=== PATIENT | male | born 1955 | race Caucasian/White ===

== ENCOUNTER 2017-02-25 17:57 | Emergency (ER) | payer OTHER ==
[~2017-02-25] VITALS: Ht 170.2 cm; Wt 68.0 kg
--- NOTE | 2017-02-25 19:30 | Diagnostic Imaging Report ---
History:New onset of seizures Comparison studies:None Technique: Axial images were obtained from the skull base to the vertex. Coronal and sagittal images reconstructed from the axial data. Intravenous contrast: None Findings: Scalp/skull: No abnormalities. Extra-axial spaces: No masses. No fluid collections. Brain sulci: Mildly prominent at the cerebrum. Moderate prominent at the cerebellum Ventricles: Mild compensatory dilatation. No hydrocephalus. Parenchyma: Few hypodensities in the supratentorial white matter are small vessel ischemic changes. No masses, hemorrhage, acute or chronic cortical vascular insults. Sellar/suprasellar region: No abnormalities. Craniocervical junction: Patent foramen magnum. No Chiari one malformation. Incidental findings: Atherosclerotic calcifications in the carotid siphons . Impression: No acute abnormalities. Chronic findings: 1. Mild generalized cerebral volume loss. Moderate cerebral volume loss, could be seen in anticonvulsive medication chronic treatment. 2. Mild supratentorial white matter small vessel ischemic changes. Signed by: DR Bar Parry M.D. on 02/25/2017 7:27 PM
[2017-02-25 19:43] LABS: BASOPHILS % 0.1 % (0.0-1.0); HEMOGLOBIN 13.2 g/dL (14.0-18.0); LYMPHOCYTES # (AUTO) 0.4 (1.0-3.2); LYMPHOCYTES % 5.4 % (18.0-39.1); MEAN CORPUSCULAR HEMOGLOBIN 34.1 pg (28-32); MEAN CORPUSCULAR HGB CONC 35.7 g/dL (31-35); MEAN CORPUSCULAR VOLUME 95.6 fL (81-99); MONOCYTES # (AUTO) 0.6 (0.2-0.8); MONOCYTES % 7.7 % (4.4-11.3); NEUTROPHILS # (AUTO) 6.3 (2.1-6.9); NEUTROPHILS % 86.4 % (38.7-80.0); PLATELET COUNT 97 x10e3/uL (140-360); RED BLOOD COUNT 3.87 x10e6/uL (4.3-5.7); RED CELL DISTRIBUTION WIDTH 12.4 % (11.7-14.4)
[2017-02-25 19:59] LABS: ALANINE AMINOTRANSFERASE 62 IU/L (0-55); ALBUMIN 4.4 g/dL (3.5-5.0); ALBUMIN/GLOBULIN RATIO 1.6 (0.8-2.0); ALKALINE PHOSPHATASE 58 IU/L (40-150); ANION GAP 19.5 mmol/L (8-16); BLOOD UREA NITROGEN 20 mg/dL (7-26); BUN/CREATININE RATIO 21 (6-25); CARBON DIOXIDE 21 mmol/L (22-29); CHLORIDE 100 mmol/L (98-107); CREATININE, SERUM 0.95 mg/dL (0.72-1.25); EST GLOMERULAR FILTRATION RATE > 60 ML/MIN (60-); GLUCOSE 131 mg/dL (74-118); POTASSIUM 3.5 mmol/L (3.5-5.1); SODIUM 137 mmol/L (136-145)
[2017-02-25] MEDS ORDERED: CHLORDIAZEPOXIDE HCL 25 MG CAP PO ONE (20:00)
[2017-02-25 20:10] LABS: INR 0.94
[2017-02-25 20:11] LABS: PARTIAL THROMBOPLASTIN TIME 25.8 seconds (23.8-35.5)
[2017-02-25] MEDS ORDERED: ASPIRIN 81 MG CHEW TAB PO ONE (20:15)
[2017-02-25 20:28] LABS: CREATINE KINASE MB 17.1 ng/mL (0.00-5.00); TROPONIN I 0.036 ng/mL (0-0.300)
[2017-02-25] MEDS ORDERED: MULTIVITAMINS- 12 INJECTION 10 ML, FOLIC ACID MDV 5 MG, THIAMINE HCL INJ 100 MG in SODI... IV ONE (21:30)
[2017-02-25] MEDS ORDERED: SODIUM CHLORIDE 0.9% 1000ML 1,000 ML IV ONE (21:30)
[2017-02-26 02:05] LABS: TROPONIN I 0.032 ng/mL (0-0.300)
== END 2017-02-26 01:59 | disposition left against medical advice (07) ==
LOC: ER 17:57
DX: G40.409 Other generalized epilepsy and epileptic syndromes, not intractable, without status epilepticus (principal); S00.81XA Abrasion of other part of head, initial encounter; F10.239 Alcohol dependence with withdrawal, unspecified; I10 Essential (primary) hypertension
CPT/HCPCS: 36415; 70450; 80053; 80320; 82550; 82553; 84484; 85025; 85610; 85730; 99284; J3411; J7030

== ENCOUNTER 2017-09-18 18:11 | Emergency (ER) | payer OTHER ==
[~2017-09-18] VITALS: Ht 170.2 cm; Wt 68.0 kg
[2017-09-18] MEDS ORDERED: ASPIRIN 81 MG CHEW TAB PO ONE (18:15)
[2017-09-18 18:50] LABS: BASOPHILS # (AUTO) 0.1 (0.0-0.1); BASOPHILS % 0.6 % (0.0-1.0); EOSINOPHILS # (AUTO) 0.1 (0.0-0.4); EOSINOPHILS % 1.1 % (0.0-6.0); HEMATOCRIT 39.4 % (38.2-49.6); HEMOGLOBIN 13.3 g/dL (14.0-18.0); LYMPHOCYTES # (AUTO) 3.5 (1.0-3.2); LYMPHOCYTES % 41.1 % (18.0-39.1); MEAN CORPUSCULAR HEMOGLOBIN 33.9 pg (28-32); MEAN CORPUSCULAR HGB CONC 33.8 g/dL (31-35); MEAN CORPUSCULAR VOLUME 100.5 fL (81-99); MONOCYTES # (AUTO) 0.8 (0.2-0.8); MONOCYTES % 9.6 % (4.4-11.3); NEUTROPHILS # (AUTO) 4.1 (2.1-6.9); NEUTROPHILS % 47.1 % (38.7-80.0); PLATELET COUNT 318 x10e3/uL (140-360); RED BLOOD COUNT 3.92 x10e6/uL (4.3-5.7); RED CELL DISTRIBUTION WIDTH 13.7 % (11.7-14.4)
--- NOTE | 2017-09-18 18:56 | Diagnostic Imaging Report ---
History:Seizures, fall Comparison studies:CT head 02/25/2017 Technique: Axial images were obtained from the skull base to the vertex. Coronal and sagittal images reconstructed from the axial data. Intravenous contrast: None Findings: Scalp/skull: No abnormalities. Extra-axial spaces: No masses. No fluid collections. Brain sulci: Mildly prominent at the supratentorial compartment. Moderately prominent at the cerebellum. Ventricles: Mild compensatory dilatation. No hydrocephalus. Parenchyma: Few hypodensities in the supratentorial white matter are small vessel ischemic changes. No masses, hemorrhage, acute or chronic cortical vascular insults. Sellar/suprasellar region: No abnormalities. Craniocervical junction: Patent foramen magnum. No Chiari one malformation. Incidental findings: Atherosclerotic calcifications in the carotid siphons . Impression: No acute abnormalities. Stable examination. Chronic findings: 1. Mild generalized cerebral volume loss. Moderate cerebellar volume loss, unchanged Mild supratentorial white matter small vessel ischemic changes. Signed by: DR Bar Parry M.D. on 09/18/2017 6:53 PM
--- NOTE | 2017-09-18 19:00 | Diagnostic Imaging Report ---
History: Fall Comparison studies: None Technique: Axial images were obtained through the cervical region.. Coronal and sagittal images reconstructed from the axial data.. Intravenous contrast: None Findings: Fractures: None. Soft tissues: No gross abnormalities. Atlantoaxial articulation: Degenerative changes without acute abnormality. Alignment: Straightening of the cervical spine lordosis. Minimal grade 1 anterolisthesis of C4 over C5.. No scoliosis. Cervicomedullary junction: No abnormalities. The foramen magnum is patent. Vertebrae: No infection or neoplasm. Degenerative changes: At C3-4, decreased intervertebral space, diffuse disc osteophyte complex and bilateral uncinate process hypertrophy results in no significant canal stenosis and mild bilateral foraminal narrowing. At C4-5, diffuse disc osteophyte complex, bilateral uncinate process hypertrophy and right facet hypertrophy results in mild canal stenosis and moderate right foraminal narrowing. At C5-6, decreased intervertebral space with endplate sclerotic changes. Diffuse disc osteophyte complex, bilateral uncinate process hypertrophy and facet hypertrophy results in moderate canal stenosis and mild bilateral foraminal narrowing. At C6-7, bilateral uncinate process hypertrophy and diffuse disc osteophyte complex results in mild canal stenosis and mild bilateral foraminal narrowing. IMPRESSION: 1. No acute cervical spine abnormalities. Degenerative changes as described above. 2. Cannot exclude ligament, spinal cord and or vascular abnormalities on the basis of this examination. Signed by: DR Bar Parry M.D. on 09/18/2017 6:57 PM
[2017-09-18 19:11] LABS: ALANINE AMINOTRANSFERASE 43 IU/L (0-55); ALBUMIN 4.5 g/dL (3.5-5.0); ALBUMIN/GLOBULIN RATIO 1.5 (0.8-2.0); ALKALINE PHOSPHATASE 53 IU/L (40-150); ANION GAP 30.9 mmol/L (8-16); BLOOD UREA NITROGEN 17 mg/dL (7-26); BUN/CREATININE RATIO 18 (6-25); CALCIUM 9.8 mg/dL (8.4-10.2); CARBON DIOXIDE 13 mmol/L (22-29); CHLORIDE 101 mmol/L (98-107); CREATINE KINASE 246 IU/L (30-200); CREATININE, SERUM 0.93 mg/dL (0.72-1.25); EST GLOMERULAR FILTRATION RATE > 60 ML/MIN (60-); GLUCOSE 135 mg/dL (74-118); POTASSIUM 3.9 mmol/L (3.5-5.1); SODIUM 141 mmol/L (136-145)
[2017-09-18] MEDS ORDERED: MULTIVITAMINS- 12 INJECTION 10 ML, FOLIC ACID MDV 5 MG, THIAMINE HCL INJ 100 MG in SODI... IV ONE ×2 (19:15→19:30)
[2017-09-18] MEDS ORDERED: CHLORDIAZEPOXIDE HCL 10 MG CAP PO ONE (19:30)
[2017-09-18] MEDS ORDERED: SODIUM CHLORIDE 0.9% 1000ML 1,000 ML IV ONE (19:30)
== END 2017-09-19 01:41 | disposition home or self-care (01) ==
LOC: ER 18:11
DX: G40.309 Generalized idiopathic epilepsy and epileptic syndromes, not intractable, without status epilepticus (principal); I10 Essential (primary) hypertension; F10.10 Alcohol abuse, uncomplicated
CPT/HCPCS: 36415; 70450; 72125; 80053; 80320; 82550; 82553; 83605; 84484; 85025; 93005; 99283; J3411; J7030

== ENCOUNTER 2017-11-11 17:47 | Emergency (ER) | payer OTHER ==
[~2017-11-11] VITALS: Ht 170.2 cm; Wt 68.0 kg
--- NOTE | 2017-11-11 18:56 | Diagnostic Imaging Report ---
Examination: CT head without contrast Clinical Indication: Seizure. Technique: Transaxial noncontrast images from the skull base through the vertex were obtained. Sagittal and coronal reformatted images were done. Dose modulation, iterative reconstruction, and/or weight based adjustment of the mA/kV was utilized to reduce the radiation dose to as low as reasonably achievable. Comparison: Head CT performed September 19, 2007. Findings: Scalp: No abnormalities. Bones: Intact. No fractures. No blastic or lytic lesions. Brain sulci: Mild volume loss for patient's age with moderate volume loss of the bilateral cerebellar hemispheres, unchanged. Ventricles: No hydrocephalus. Extra-axial space: No abnormalities. Parenchyma: There are scattered patchy areas of low-attenuation within subcortical and periventricular white matter, nonspecific, but could represent microvascular ischemic disease. No masses, hemorrhage, or acute or chronic cortical based vascular insults. Suprasellar region: No abnormalities. Craniocervical junction: The foramen magnum is patent. No Chiari one malformation. Incidental findings: Atherosclerotic calcification of the cavernous and supraclinoid internal carotid and V4 segments of the bilateral vertebral arteries. Impression: 1. No acute intracranial finding when compared to prior head CT performed September 18, 2017. 2. Unchanged mild chronic microvascular ischemic change and mild cerebral and moderate cerebellar volume loss. Signed by: Dr. Radha William M.D. on 11/11/2017 6:53 PM
[2017-11-11 19:26] LABS: BASOPHILS % 0.1 % (0.0-1.0); HEMATOCRIT 37.8 % (38.2-49.6); HEMOGLOBIN 13.4 g/dL (14.0-18.0); LYMPHOCYTES # (AUTO) 0.3 (1.0-3.2); LYMPHOCYTES % 4.3 % (18.0-39.1); MEAN CORPUSCULAR HEMOGLOBIN 33.7 pg (28-32); MEAN CORPUSCULAR HGB CONC 35.4 g/dL (31-35); MONOCYTES # (AUTO) 0.5 (0.2-0.8); MONOCYTES % 7.5 % (4.4-11.3); NEUTROPHILS # (AUTO) 6.1 (2.1-6.9); NEUTROPHILS % 87.2 % (38.7-80.0); PLATELET COUNT 144 x10e3/uL (140-360); RED BLOOD COUNT 3.98 x10e6/uL (4.3-5.7); RED CELL DISTRIBUTION WIDTH 13.3 % (11.7-14.4)
[2017-11-11 19:42] LABS: ALANINE AMINOTRANSFERASE 37 IU/L (0-55); ALBUMIN 4.4 g/dL (3.5-5.0); ALBUMIN/GLOBULIN RATIO 1.5 (0.8-2.0); ALKALINE PHOSPHATASE 54 IU/L (40-150); ANION GAP 23.6 mmol/L (8-16); BLOOD UREA NITROGEN 17 mg/dL (7-26); BUN/CREATININE RATIO 19 (6-25); CALCIUM 8.8 mg/dL (8.4-10.2); CARBON DIOXIDE 18 mmol/L (22-29); CHLORIDE 100 mmol/L (98-107); CREATINE KINASE 245 IU/L (30-200); EST GLOMERULAR FILTRATION RATE > 60 ML/MIN (60-); GLUCOSE 166 mg/dL (74-118); POTASSIUM 3.6 mmol/L (3.5-5.1); SODIUM 138 mmol/L (136-145)
[2017-11-11 20:35] LABS: EOSINOPHILS % (MANUAL) 1 % (0-7); LYMPHOCYTES % (MANUAL) 3 % (19-48); MONOCYTES % (MANUAL) 3 % (3.4-9.0); NEUTROPHILS % (MANUAL) 92 % (40-74); PLATELET ESTIMATE ADEQUATE; PLATELET MORPHOLOGY COMMENT NORMAL; RBC MORPHOLOGY COMMENT NORMAL
[2017-11-11 20:45] LABS: CLARITY,URINE SL CLOUDY (CLEAR); COLOR,URINE YELLOW (YELLOW); KETONES,URINE 1+ (NEGATIVE); LEUKOCYTE ESTERASE ,URINE NEGATIVE (NEGATIVE); NITRITE,URINE NEGATIVE (NEGATIVE); PROTEIN,URINE DIPSTICK 2+ (NEGATIVE)
[2017-11-11 20:46] LABS: AMPHETAMINES SCREEN,URINE NEGATIVE (NEGATIVE); BENZODIAZEPINES SCREEN,URINE NEGATIVE (NEGATIVE); BILIRUBIN,URINE NEGATIVE (NEGATIVE); PHENCYCLIDINE SCREEN,URINE NEGATIVE (NEGATIVE); URINE UROBILINOGEN 0.2 mg/dL (0.2 - 1)
[2017-11-11 21:02] LABS: EPITHELIAL CELLS,URINE FEW /LPF
== END 2017-11-11 21:30 | disposition home or self-care (01) ==
LOC: ER 17:47
DX: G40.309 Generalized idiopathic epilepsy and epileptic syndromes, not intractable, without status epilepticus (principal); R56.00 Simple febrile convulsions
CPT/HCPCS: 36415; 70450; 80053; 80307; 80320; 81001; 82550; 82553; 84484; 85025; 93005; 99284

== ENCOUNTER 2019-06-06 15:09 | Emergency (ER) | payer OTHER ==
[~2019-06-06] VITALS: Ht 170.2 cm; Wt 68.0 kg
--- OUTSIDE RECORDS SUMMARY | 2019-06-06 15:13 | XMS REPORT ---
[facility] Address Unknown Phone Unavailable Care Team Providers Care [employer] Supervisor Name Role Phone JANN LUNDBERG MD PP TATA PHIPPS M.D. Unavailable Unavailable TIARA LOCKHART M.D. Unavailable Unavailable SHAI LOMAS M.D. Unavailable Unavailable IRENE CRANDALL, GREGORY Unavailable Unavailable Rafael BRICEÑO Unavailable Unavailable Lex ROACH Unavailable Unavailable Enrique RUIZ Unavailable Unavailable Payers Payer Name Policy Type Policy Number Effective Date Expiration Date [employer] Kam [id number] 2013 00:00:00 [employer] Kam [id number] 2013 00:00:00 Problems Condition Name Condition Details Condition Category Status Onset Date Resolution Date Last Treatment Date Treating Clinician Comments Seizures Seizures Problem Active Pain of left lateral upper thigh Pain of left lateral upper thigh Problem Active Left knee pain Left knee pain Problem Active Pain in joint involving left lower leg Pain in joint involving left lower leg Problem Active Herniated nucleus pulposus, L5-S1 Herniated nucleus pulposus, L5-S1 Problem Active Allergies, Adverse Reactions, Alerts Allergy Name Allergy Type Status Severity Reaction(s) Onset Date Inactive Date Treating Clinician Comments niacin DA Active SV 2018-04-09 00:00:00 codeine DA Active U 2018-04-09 00:00:00 niacin DA Active SV 2018-01-16 00:00:00 codeine DA Active SV 2018-01-16 00:00:00 niacin DA Active SV 2017-07-01 00:00:00 codeine DA Active U 2017-07-01 00:00:00 Medications Ordered Medication Name Filled Medication Name Start Date Stop Date Current Medication? Ordering Clinician Indication Dosage Frequency Signature (SIG) Comments Components traMADol HCl - 50 MG Oral Tablet traMADol HCl - 50 MG Oral Tablet 2018-08-13 00:00:00 Yes CAIO JONES PA-C TAKE 1 TABLET EVERY 4 TO 6 HOURS NEEDED. Vital Signs Vital Name Observation Time Observation Value Comments BP Systolic 2018-11-07 12:26:00 152 mm[Hg] BP Diastolic 2018-11-07 12:26:00 86 mm[Hg] Height 2018-11-07 12:26:00 68 [in_us] Weight 2018-11-07 12:26:00 150 [lb_av] Temperature 2018-11-07 12:26:00 98.1 [degF] Heart Rate 2018-11-07 12:26:00 73 /min Procedures and Interventions Procedure Date / Time Performed Performing Clinician CT Brain w/wo contrast [id number] 2018-08-19 00:00:00 MR Femur w/wo contrast [id number] 2018-08-19 00:00:00 MR Tib Fib wo contrast [id number] 2018-08-19 00:00:00 [U] XRAY PELVIS MIN 3 VWS [id number] 2018-08-13 00:00:00 [U] XRAY FEMUR 2 VWS LEFT [id number] 2018-08-13 00:00:00 [U] XRAY TIBIA FIBULA 2 VWS LEFT [id number] 2018-08-13 00:00:00 Computed tomography of brain without radiopaque contrast 2017-11-11 00:00:00 KATHLEEN BRICEÑO C Computed tomography of brain without radiopaque contrast 2017-09-18 00:00:00 CARLEE ROACH S Computed tomography of cervical spine without contrast 2017-09-18 00:00:00 CARLEE ROACH S Computed tomography of brain without radiopaque contrast 2017-02-25 00:00:00 CHANELL RUIZ Plan of Care Planned Activity Planned Date Comments Encounters Start Date/Time End Date/Time Encounter Type Admission Type Attending [facility] Care Facility Care Department Encounter ID 2018-11-24 10:45:00 2018-11-24 10:45:00 Appointment; TATA PHIPPS M.D. SAMBASIVAN, AJAI, M.D. [facility] Orthopedics at [facility], [place], [facility] [id number] 2018-11-07 11:00:00 2018-11-07 11:00:00 Appointment; TIARA LOCKHART M.D. CONRAD, ERNEST, M.D. [facility] Orthopedics at [facility] [id number] 2018-09-15 15:30:00 2018-09-15 15:30:00 Appointment; SHAI LOMAS M.D. FERRENDELLI, JAMES, M.D. [facility] [id number] 2018-08-13 10:15:00 2018-08-13 10:15:00 Appointment; IRENE CRANDALL NP COCKERHAM, AMY, NP [facility] Orthopedics [facility] [id number] 2017-11-11 17:47:00 2017-11-11 21:30:00 Departed Emergency Room 1 KATHLEEN BRICEÑO [facility] [id number] 2017-09-18 18:11:00 2017-09-19 01:41:00 Departed Emergency Room 1 CARLEE ROACH [facility] [id number] 2017-02-25 17:57:00 2017-02-26 01:59:00 Departed Emergency Room ER CHANELL RUIZ [facility] [id number] Results Test Description Test Time Test Comments Text Results Atomic Results Result Comments GLUBED 2019-03-16 18:33:00 GLUBED (test code=GLUBED) 100 mg/dL 74-106 Performed by certified paint booth operator at [facility] [id number] 18:33:00* Test Item Value Reference Range Comments GLUBED (test code=GLUBED) 101 mg/dL 74-106 Performed by certified paint booth operator at [facility] CBC W/AUTO [id number] 07:55:00* Test Item Value Reference Range Comments WHITE BLOOD CELL (test code=WBC) 4.5 K/mm3 4.5-12.5 RED BLOOD CELL (test code=RBC) 3.26 mill/mm3 4.0-5.8 HEMOGLOBIN (test code=HGB) 11.0 gram/dL 13.0-17.5 HEMATOCRIT (test code=HCT) 31.1 % 42.0-52.0 MEAN CELL VOLUME (test code=MCV) 95.4 fL 80-98 MEAN CELL HGB (test code=MCH) 33.7 picogram 27.0-33.0 MEAN CELL HGB CONCETRATION (test code=MCHC) 35.4 gram/dL 33.0-36.0 RED CELL DISTRIBUTION WIDTH (test code=RDW) 13.5 % 11.6-16.2 RED CELL DISTRIBUTION WIDTH SD (test code=RDW-SD) 47.1 fL 37.0-51.0 PLATELET COUNT (test code=PLT) 84 K/mm3 150-450 MEAN PLATELET VOLUME (test code=MPV) 12.4 fL 6.7-11.0 NEUTROPHIL % (test code=NT%) 59.7 % 39.0-69.0 IMMATURE GRANULOCYTE % (test code=IG%) 0.4 % 0.0-5.0 LYMPHOCYTE % (test code=LY%) 28.0 % 25.0-55.0 MONOCYTE % (test code=MO%) 8.5 % 0.0-10.0 EOSINOPHIL % (test code=EO%) 2.7 % 0.0-5.0 BASOPHIL % (test code=BA%) 0.7 % 0.0-1.0 NUCLEATED RBC % (test code=NRBC%) 0.0 % 0-0 NEUTROPHIL # (test code=NT#) 2.66 K/mm3 1.8-7.7 IMMATURE GRANULOCYTE # (test code=IG#) 0.02 x10 3/uL 0-0.03 LYMPHOCYTE # (test code=LY#) 1.25 K/mm3 1.0-5.0 MONOCYTE # (test code=MO#) 0.38 K/mm3 0-0.8 EOSINOPHIL # (test code=EO#) 0.12 K/mm3 0.0-0.5 BASOPHIL # (test code=BA#) 0.03 K/mm3 0.0-0.2 NUCLEATED RBC # (test code=NRBC#) 0.00 K/mm3 0.0-0.1 MANUAL DIFF REQUIRED (test code=MDIFF) NO, ONLY SCAN NEEDED DIFFERENTIAL [id number] 07:55:00* Test Item Value Reference Range Comments STAIN ACCEPTABILITY (test code=STN ACCEPTABLE) STAIN ACCEPTABLE ANISOCYTOSIS (test code=ANISO) 2+ MACROCYTOSIS (test code=MACR) 2+ MORPHOLOGY COMMENT (test code=MOC) NORMAL PLATELET ESTIMATE (test code=PLTEST) DECREASED PLATELET MORPHOLOGY (test code=PLTMORPH) NORMAL COMPREHENSIVE METABOLIC [id number] 04:22:00* Test Item Value Reference Range Comments SODIUM (test code=NA) 138 mmol/L 136-145 POTASSIUM (test code=K) 3.4 mmol/L 3.5-5.1 CHLORIDE (test code=CL) 103.0 mmol/L 98-107 CARBON DIOXIDE (test code=CO2) 25.0 mmol/L 21-32 ANION GAP (test code=GAP) 13.4 10-20 GLUCOSE (test code=GLU) 97 mg/dL 74-106 BLOOD UREA NITROGEN (test code=BUN) 19 mg/dL 7-18 GLOMERULAR FILTRATION RATE (test code=GFR) > 60 mL/min >=60 Estimated GFR by using Modified MDRD formula.Chronic kidney disease is defined as either kidney damageor GFR <60 mL/min/1.73 m2 for >3 months. CREATININE (test code=CREAT) 0.80 mg/dL 0.7-1.3 BUN/CREATININE RATIO (test code=BUN/CREA) 23.8 10-20 TOTAL PROTEIN (test code=PROT) 6.3 gram/dL 6.4-8.2 ALBUMIN (test code=ALB) 3.6 g/dL 3.4-5.0 GLOBULIN (test code=GLOB) 2.7 gram/dL 2.7-4.2 ALBUMIN/GLOBULIN RATIO (test code=A/G) 1.3 0.75-1.50 CALCIUM (test code=CA) 8.2 mg/dL 8.5-10.1 BILIRUBIN TOTAL (test code=BILT) 1.30 mg/dL 0.0-1.0 SGOT/AST (test code=AST) 177 IUnit/L 15-37 SGPT/ALT (test code=ALT) 107 IUnit/L 12-78 ALKALINE PHOSPHATASE TOTAL (test code=ALKP) 57 IUnit/L 45-117 Note change in reference range due to change in reagent. [id number] 04:12:00* Test Item Value Reference Range Comments AMMONIA (test code=AMM) 51 umol/L 11-32 COMPREHENSIVE METABOLIC [id number] 04:12:00* Test Item Value Reference Range Comments SODIUM (test code=NA) 138 mmol/L 136-145 POTASSIUM (test code=K) 3.4 mmol/L 3.5-5.1 CHLORIDE (test code=CL) 103.0 mmol/L 98-107 CARBON DIOXIDE (test code=CO2) mmol/L 21-32 ANION GAP (test code=GAP) 10-20 GLUCOSE (test code=GLU) mg/dL 74-106 BLOOD UREA NITROGEN (test code=BUN) mg/dL 7-18 GLOMERULAR FILTRATION RATE (test code=GFR) mL/min >=60 CREATININE (test code=CREAT) mg/dL 0.7-1.3 BUN/CREATININE RATIO (test code=BUN/CREA) 10-20 TOTAL PROTEIN (test code=PROT) gram/dL 6.4-8.2 ALBUMIN (test code=ALB) g/dL 3.4-5.0 GLOBULIN (test code=GLOB) gram/dL 2.7-4.2 ALBUMIN/GLOBULIN RATIO (test code=A/G) 0.75-1.50 CALCIUM (test code=CA) mg/dL 8.5-10.1 BILIRUBIN TOTAL (test code=BILT) mg/dL 0.0-1.0 SGOT/AST (test code=AST) IUnit/L 15-37 SGPT/ALT (test code=ALT) IUnit/L 12-78 ALKALINE PHOSPHATASE TOTAL (test code=ALKP) IUnit/L 45-117 CBC W/AUTO [id number] 03:32:00* Test Item Value Reference Range Comments WHITE BLOOD CELL (test code=WBC) 4.5 K/mm3 4.5-12.5 RED BLOOD CELL (test code=RBC) 3.26 mill/mm3 4.0-5.8 HEMOGLOBIN (test code=HGB) 11.0 gram/dL 13.0-17.5 HEMATOCRIT (test code=HCT) 31.1 % 42.0-52.0 MEAN CELL VOLUME (test code=MCV) 95.4 fL 80-98 MEAN CELL HGB (test code=MCH) 33.7 picogram 27.0-33.0 MEAN CELL HGB CONCETRATION (test code=MCHC) 35.4 gram/dL 33.0-36.0 RED CELL DISTRIBUTION WIDTH (test code=RDW) 13.5 % 11.6-16.2 RED CELL DISTRIBUTION WIDTH SD (test code=RDW-SD) 47.1 fL 37.0-51.0 PLATELET COUNT (test code=PLT) 84 K/mm3 150-450 MEAN PLATELET VOLUME (test code=MPV) 12.4 fL 6.7-11.0 NEUTROPHIL % (test code=NT%) 59.7 % 39.0-69.0 IMMATURE GRANULOCYTE % (test code=IG%) 0.4 % 0.0-5.0 LYMPHOCYTE % (test code=LY%) 28.0 % 25.0-55.0 MONOCYTE % (test code=MO%) 8.5 % 0.0-10.0 EOSINOPHIL % (test code=EO%) 2.7 % 0.0-5.0 BASOPHIL % (test code=BA%) 0.7 % 0.0-1.0 NUCLEATED RBC % (test code=NRBC%) 0.0 % 0-0 NEUTROPHIL # (test code=NT#) 2.66 K/mm3 1.8-7.7 IMMATURE GRANULOCYTE # (test code=IG#) 0.02 x10 3/uL 0-0.03 LYMPHOCYTE # (test code=LY#) 1.25 K/mm3 1.0-5.0 MONOCYTE # (test code=MO#) 0.38 K/mm3 0-0.8 EOSINOPHIL # (test code=EO#) 0.12 K/mm3 0.0-0.5 BASOPHIL # (test code=BA#) 0.03 K/mm3 0.0-0.2 NUCLEATED RBC # (test code=NRBC#) 0.00 K/mm3 0.0-0.1 MANUAL DIFF REQUIRED (test code=MDIFF) NO, ONLY SCAN NEEDED DIFFERENTIAL [id number] 03:32:00* Test Item Value Reference Range Comments STAIN ACCEPTABILITY (test code=STN ACCEPTABLE) CABOT RINGS (test code=CAB) MORPHOLOGY COMMENT (test code=MOC) PLATELET ESTIMATE (test code=PLTEST) PLATELET MORPHOLOGY (test code=PLTMORPH) CBC W/AUTO [id number] 03:32:00* Test Item Value Reference Range Comments WHITE BLOOD CELL (test code=WBC) 4.5 K/mm3 4.5-12.5 RED BLOOD CELL (test code=RBC) 3.26 mill/mm3 4.0-5.8 HEMOGLOBIN (test code=HGB) 11.0 gram/dL 13.0-17.5 HEMATOCRIT (test code=HCT) 31.1 % 42.0-52.0 MEAN CELL VOLUME (test code=MCV) 95.4 fL 80-98 MEAN CELL HGB (test code=MCH) 33.7 picogram 27.0-33.0 MEAN CELL HGB CONCETRATION (test code=MCHC) 35.4 gram/dL 33.0-36.0 RED CELL DISTRIBUTION WIDTH (test code=RDW) 13.5 % 11.6-16.2 RED CELL DISTRIBUTION WIDTH SD (test code=RDW-SD) 47.1 fL 37.0-51.0 PLATELET COUNT (test code=PLT) 84 K/mm3 150-450 MEAN PLATELET VOLUME (test code=MPV) 12.4 fL 6.7-11.0 NEUTROPHIL % (test code=NT%) 59.7 % 39.0-69.0 IMMATURE GRANULOCYTE % (test code=IG%) 0.4 % 0.0-5.0 LYMPHOCYTE % (test code=LY%) 28.0 % 25.0-55.0 MONOCYTE % (test code=MO%) 8.5 % 0.0-10.0 EOSINOPHIL % (test code=EO%) 2.7 % 0.0-5.0 BASOPHIL % (test code=BA%) 0.7 % 0.0-1.0 NUCLEATED RBC % (test code=NRBC%) 0.0 % 0-0 NEUTROPHIL # (test code=NT#) 2.66 K/mm3 1.8-7.7 IMMATURE GRANULOCYTE # (test code=IG#) 0.02 x10 3/uL 0-0.03 LYMPHOCYTE # (test code=LY#) 1.25 K/mm3 1.0-5.0 MONOCYTE # (test code=MO#) 0.38 K/mm3 0-0.8 EOSINOPHIL # (test code=EO#) 0.12 K/mm3 0.0-0.5 BASOPHIL # (test code=BA#) 0.03 K/mm3 0.0-0.2 NUCLEATED RBC # (test code=NRBC#) 0.00 K/mm3 0.0-0.1 MANUAL DIFF REQUIRED (test code=MDIFF) NO, ONLY SCAN NEEDED DIFFERENTIAL [id number] 03:32:00* Test Item Value Reference Range Comments STAIN ACCEPTABILITY (test code=STN ACCEPTABLE) CABOT RINGS (test code=CAB) MORPHOLOGY COMMENT (test code=MOC) PLATELET ESTIMATE (test code=PLTEST) PLATELET MORPHOLOGY (test code=PLTMORPH) CBC W/AUTO [id number] 03:32:00* Test Item Value Reference Range Comments WHITE BLOOD CELL (test code=WBC) 4.5 K/mm3 4.5-12.5 RED BLOOD CELL (test code=RBC) 3.26 mill/mm3 4.0-5.8 HEMOGLOBIN (test code=HGB) 11.0 gram/dL 13.0-17.5 HEMATOCRIT (test code=HCT) 31.1 % 42.0-52.0 MEAN CELL VOLUME (test code=MCV) 95.4 fL 80-98 MEAN CELL HGB (test code=MCH) 33.7 picogram 27.0-33.0 MEAN CELL HGB CONCETRATION (test code=MCHC) 35.4 gram/dL 33.0-36.0 RED CELL DISTRIBUTION WIDTH (test code=RDW) 13.5 % 11.6-16.2 RED CELL DISTRIBUTION WIDTH SD (test code=RDW-SD) 47.1 fL 37.0-51.0 PLATELET COUNT (test code=PLT) 84 K/mm3 150-450 MEAN PLATELET VOLUME (test code=MPV) 12.4 fL 6.7-11.0 NEUTROPHIL % (test code=NT%) 59.7 % 39.0-69.0 IMMATURE GRANULOCYTE % (test code=IG%) 0.4 % 0.0-5.0 LYMPHOCYTE % (test code=LY%) 28.0 % 25.0-55.0 MONOCYTE % (test code=MO%) 8.5 % 0.0-10.0 EOSINOPHIL % (test code=EO%) 2.7 % 0.0-5.0 BASOPHIL % (test code=BA%) 0.7 % 0.0-1.0 NUCLEATED RBC % (test code=NRBC%) 0.0 % 0-0 NEUTROPHIL # (test code=NT#) 2.66 K/mm3 1.8-7.7 IMMATURE GRANULOCYTE # (test code=IG#) 0.02 x10 3/uL 0-0.03 LYMPHOCYTE # (test code=LY#) 1.25 K/mm3 1.0-5.0 MONOCYTE # (test code=MO#) 0.38 K/mm3 0-0.8 EOSINOPHIL # (test code=EO#) 0.12 K/mm3 0.0-0.5 BASOPHIL # (test code=BA#) 0.03 K/mm3 0.0-0.2 NUCLEATED RBC # (test code=NRBC#) 0.00 K/mm3 0.0-0.1 MANUAL DIFF REQUIRED (test code=MDIFF) NO, ONLY SCAN NEEDED DIFFERENTIAL [id number] 03:32:00* Test Item Value Reference Range Comments STAIN ACCEPTABILITY (test code=STN ACCEPTABLE) MORPHOLOGY COMMENT (test code=MOC) PLATELET ESTIMATE (test code=PLTEST) PLATELET MORPHOLOGY (test code=PLTMORPH) CBC W/AUTO [id number] 03:32:00* Test Item Value Reference Range Comments WHITE BLOOD CELL (test code=WBC) 4.5 K/mm3 4.5-12.5 RED BLOOD CELL (test code=RBC) 3.26 mill/mm3 4.0-5.8 HEMOGLOBIN (test code=HGB) 11.0 gram/dL 13.0-17.5 HEMATOCRIT (test code=HCT) 31.1 % 42.0-52.0 MEAN CELL VOLUME (test code=MCV) 95.4 fL 80-98 MEAN CELL HGB (test code=MCH) 33.7 picogram 27.0-33.0 MEAN CELL HGB CONCETRATION (test code=MCHC) 35.4 gram/dL 33.0-36.0 RED CELL DISTRIBUTION WIDTH (test code=RDW) 13.5 % 11.6-16.2 RED CELL DISTRIBUTION WIDTH SD (test code=RDW-SD) 47.1 fL 37.0-51.0 PLATELET COUNT (test code=PLT) 84 K/mm3 150-450 MEAN PLATELET VOLUME (test code=MPV) 12.4 fL 6.7-11.0 NEUTROPHIL % (test code=NT%) 59.7 % 39.0-69.0 IMMATURE GRANULOCYTE % (test code=IG%) 0.4 % 0.0-5.0 LYMPHOCYTE % (test code=LY%) 28.0 % 25.0-55.0 MONOCYTE % (test code=MO%) 8.5 % 0.0-10.0 EOSINOPHIL % (test code=EO%) 2.7 % 0.0-5.0 BASOPHIL % (test code=BA%) 0.7 % 0.0-1.0 NUCLEATED RBC % (test code=NRBC%) 0.0 % 0-0 NEUTROPHIL # (test code=NT#) 2.66 K/mm3 1.8-7.7 IMMATURE GRANULOCYTE # (test code=IG#) 0.02 x10 3/uL 0-0.03 LYMPHOCYTE # (test code=LY#) 1.25 K/mm3 1.0-5.0 MONOCYTE # (test code=MO#) 0.38 K/mm3 0-0.8 EOSINOPHIL # (test code=EO#) 0.12 K/mm3 0.0-0.5 BASOPHIL # (test code=BA#) 0.03 K/mm3 0.0-0.2 NUCLEATED RBC # (test code=NRBC#) 0.00 K/mm3 0.0-0.1 MANUAL DIFF REQUIRED (test code=MDIFF) NO, ONLY SCAN NEEDED DIFFERENTIAL [id number] 03:32:00* Test Item Value Reference Range Comments STAIN ACCEPTABILITY (test code=STN ACCEPTABLE) CABOT RINGS (test code=CAB) MORPHOLOGY COMMENT (test code=MOC) PLATELET ESTIMATE (test code=PLTEST) PLATELET MORPHOLOGY (test code=PLTMORPH) CBC W/AUTO [id number] 03:31:00* Test Item Value Reference Range Comments WHITE BLOOD CELL (test code=WBC) 4.5 K/mm3 4.5-12.5 RED BLOOD CELL (test code=RBC) 3.26 mill/mm3 4.0-5.8 HEMOGLOBIN (test code=HGB) 11.0 gram/dL 13.0-17.5 HEMATOCRIT (test code=HCT) 31.1 % 42.0-52.0 MEAN CELL VOLUME (test code=MCV) 95.4 fL 80-98 MEAN CELL HGB (test code=MCH) 33.7 picogram 27.0-33.0 MEAN CELL HGB CONCETRATION (test code=MCHC) 35.4 gram/dL 33.0-36.0 RED CELL DISTRIBUTION WIDTH (test code=RDW) 13.5 % 11.6-16.2 RED CELL DISTRIBUTION WIDTH SD (test code=RDW-SD) 47.1 fL 37.0-51.0 PLATELET COUNT (test code=PLT) 84 K/mm3 150-450 MEAN PLATELET VOLUME (test code=MPV) 12.4 fL 6.7-11.0 NEUTROPHIL % (test code=NT%) 59.7 % 39.0-69.0 IMMATURE GRANULOCYTE % (test code=IG%) 0.4 % 0.0-5.0 LYMPHOCYTE % (test code=LY%) 28.0 % 25.0-55.0 MONOCYTE % (test code=MO%) 8.5 % 0.0-10.0 EOSINOPHIL % (test code=EO%) 2.7 % 0.0-5.0 BASOPHIL % (test code=BA%) 0.7 % 0.0-1.0 NUCLEATED RBC % (test code=NRBC%) 0.0 % 0-0 NEUTROPHIL # (test code=NT#) 2.66 K/mm3 1.8-7.7 IMMATURE GRANULOCYTE # (test code=IG#) 0.02 x10 3/uL 0-0.03 LYMPHOCYTE # (test code=LY#) 1.25 K/mm3 1.0-5.0 MONOCYTE # (test code=MO#) 0.38 K/mm3 0-0.8 EOSINOPHIL # (test code=EO#) 0.12 K/mm3 0.0-0.5 BASOPHIL # (test code=BA#) 0.03 K/mm3 0.0-0.2 NUCLEATED RBC # (test code=NRBC#) 0.00 K/mm3 0.0-0.1 [id number] 16:39:00* Test Item Value Reference Range Comments GLUBED (test code=GLUBED) 115 mg/dL 74-106 Performed by certified paint booth operator at [facility] [id number] 13:28:00* Test Item Value Reference Range Comments GLUBED (test code=GLUBED) 115 mg/dL 74-106 Performed by certified paint booth operator at [facility] [id number] 06:36:00* Test Item Value Reference Range Comments GLUBED (test code=GLUBED) 79 mg/dL 74-106 Performed by certified paint booth operator at [facility] COMPREHENSIVE METABOLIC [id number] 03:30:00* Test Item Value Reference Range Comments SODIUM (test code=NA) 138 mmol/L 136-145 POTASSIUM (test code=K) 4.0 mmol/L 3.5-5.1 CHLORIDE (test code=CL) 102.0 mmol/L 98-107 CARBON DIOXIDE (test code=CO2) 25.0 mmol/L 21-32 ANION GAP (test code=GAP) 15.0 10-20 GLUCOSE (test code=GLU) 89 mg/dL 74-106 BLOOD UREA NITROGEN (test code=BUN) 27 mg/dL 7-18 RESULT VERIFIED BY REPEAT ANALYSIS GLOMERULAR FILTRATION RATE (test code=GFR) > 60 mL/min >=60 Estimated GFR by using Modified MDRD formula.Chronic kidney disease is defined as either kidney damageor GFR <60 mL/min/1.73 m2 for >3 months. CREATININE (test code=CREAT) 0.70 mg/dL 0.7-1.3 BUN/CREATININE RATIO (test code=BUN/CREA) 38.6 10-20 TOTAL PROTEIN (test code=PROT) 6.4 gram/dL 6.4-8.2 ALBUMIN (test code=ALB) 3.6 g/dL 3.4-5.0 GLOBULIN (test code=GLOB) 2.8 gram/dL 2.7-4.2 ALBUMIN/GLOBULIN RATIO (test code=A/G) 1.3 0.75-1.50 CALCIUM (test code=CA) 8.3 mg/dL 8.5-10.1 BILIRUBIN TOTAL (test code=BILT) 2.00 mg/dL 0.0-1.0 SGOT/AST (test code=AST) 206 IUnit/L 15-37 SGPT/ALT (test code=ALT) 98 IUnit/L 12-78 ALKALINE PHOSPHATASE TOTAL (test code=ALKP) 53 IUnit/L 45-117 Note change in reference range due to change in reagent. CBC W/AUTO [id number] 03:26:00* Test Item Value Reference Range Comments WHITE BLOOD CELL (test code=WBC) 4.7 K/mm3 4.5-12.5 RED BLOOD CELL (test code=RBC) 3.39 mill/mm3 4.0-5.8 HEMOGLOBIN (test code=HGB) 11.2 gram/dL 13.0-17.5 HEMATOCRIT (test code=HCT) 32.4 % 42.0-52.0 MEAN CELL VOLUME (test code=MCV) 95.6 fL 80-98 MEAN CELL HGB (test code=MCH) 33.0 picogram 27.0-33.0 MEAN CELL HGB CONCETRATION (test code=MCHC) 34.6 gram/dL 33.0-36.0 RED CELL DISTRIBUTION WIDTH (test code=RDW) 13.9 % 11.6-16.2 RED CELL DISTRIBUTION WIDTH SD (test code=RDW-SD) 48.9 fL 37.0-51.0 PLATELET COUNT (test code=PLT) 77 K/mm3 150-450 MEAN PLATELET VOLUME (test code=MPV) 12.3 fL 6.7-11.0 NEUTROPHIL % (test code=NT%) 61.3 % 39.0-69.0 IMMATURE GRANULOCYTE % (test code=IG%) 0.6 % 0.0-5.0 LYMPHOCYTE % (test code=LY%) 25.9 % 25.0-55.0 MONOCYTE % (test code=MO%) 10.7 % 0.0-10.0 EOSINOPHIL % (test code=EO%) 1.3 % 0.0-5.0 BASOPHIL % (test code=BA%) 0.2 % 0.0-1.0 NUCLEATED RBC % (test code=NRBC%) 0.0 % 0-0 NEUTROPHIL # (test code=NT#) 2.86 K/mm3 1.8-7.7 IMMATURE GRANULOCYTE # (test code=IG#) 0.03 x10 3/uL 0-0.03 LYMPHOCYTE # (test code=LY#) 1.21 K/mm3 1.0-5.0 MONOCYTE # (test code=MO#) 0.50 K/mm3 0-0.8 EOSINOPHIL # (test code=EO#) 0.06 K/mm3 0.0-0.5 BASOPHIL # (test code=BA#) 0.01 K/mm3 0.0-0.2 NUCLEATED RBC # (test code=NRBC#) 0.00 K/mm3 0.0-0.1 MANUAL DIFF REQUIRED (test code=MDIFF) NO, ONLY SCAN NEEDED DIFFERENTIAL [id number] 03:26:00* Test Item Value Reference Range Comments STAIN ACCEPTABILITY (test code=STN ACCEPTABLE) STAIN ACCEPTABLE POIKILOCYTOSIS (test code=POIK) 1+ ANISOCYTOSIS (test code=ANISO) 2+ MACROCYTOSIS (test code=MACR) 2+ TARGET CELLS (test code=TGT) 1+ PLATELET ESTIMATE (test code=PLTEST) DECREASED PLATELET MORPHOLOGY (test code=PLTMORPH) NORMAL COMPREHENSIVE METABOLIC [id number] 03:13:00* Test Item Value Reference Range Comments SODIUM (test code=NA) 138 mmol/L 136-145 POTASSIUM (test code=K) 4.0 mmol/L 3.5-5.1 CHLORIDE (test code=CL) 102.0 mmol/L 98-107 CARBON DIOXIDE (test code=CO2) mmol/L 21-32 ANION GAP (test code=GAP) 10-20 GLUCOSE (test code=GLU) mg/dL 74-106 BLOOD UREA NITROGEN (test code=BUN) mg/dL 7-18 GLOMERULAR FILTRATION RATE (test code=GFR) mL/min >=60 CREATININE (test code=CREAT) mg/dL 0.7-1.3 BUN/CREATININE RATIO (test code=BUN/CREA) 10-20 TOTAL PROTEIN (test code=PROT) gram/dL 6.4-8.2 ALBUMIN (test code=ALB) g/dL 3.4-5.0 GLOBULIN (test code=GLOB) gram/dL 2.7-4.2 ALBUMIN/GLOBULIN RATIO (test code=A/G) 0.75-1.50 CALCIUM (test code=CA) mg/dL 8.5-10.1 BILIRUBIN TOTAL (test code=BILT) mg/dL 0.0-1.0 SGOT/AST (test code=AST) IUnit/L 15-37 SGPT/ALT (test code=ALT) IUnit/L 12-78 ALKALINE PHOSPHATASE TOTAL (test code=ALKP) IUnit/L 45-117 [id number] 03:13:00* Test Item Value Reference Range Comments AMMONIA (test code=AMM) 42 umol/L 11-32 CBC W/AUTO [id number] 02:54:00* Test Item Value Reference Range Comments WHITE BLOOD CELL (test code=WBC) 4.7 K/mm3 4.5-12.5 RED BLOOD CELL (test code=RBC) 3.39 mill/mm3 4.0-5.8 HEMOGLOBIN (test code=HGB) 11.2 gram/dL 13.0-17.5 HEMATOCRIT (test code=HCT) 32.4 % 42.0-52.0 MEAN CELL VOLUME (test code=MCV) 95.6 fL 80-98 MEAN CELL HGB (test code=MCH) 33.0 picogram 27.0-33.0 MEAN CELL HGB CONCETRATION (test code=MCHC) 34.6 gram/dL 33.0-36.0 RED CELL DISTRIBUTION WIDTH (test code=RDW) 13.9 % 11.6-16.2 RED CELL DISTRIBUTION WIDTH SD (test code=RDW-SD) 48.9 fL 37.0-51.0 PLATELET COUNT (test code=PLT) 77 K/mm3 150-450 MEAN PLATELET VOLUME (test code=MPV) 12.3 fL 6.7-11.0 NEUTROPHIL % (test code=NT%) 61.3 % 39.0-69.0 IMMATURE GRANULOCYTE % (test code=IG%) 0.6 % 0.0-5.0 LYMPHOCYTE % (test code=LY%) 25.9 % 25.0-55.0 MONOCYTE % (test code=MO%) 10.7 % 0.0-10.0 EOSINOPHIL % (test code=EO%) 1.3 % 0.0-5.0 BASOPHIL % (test code=BA%) 0.2 % 0.0-1.0 NUCLEATED RBC % (test code=NRBC%) 0.0 % 0-0 NEUTROPHIL # (test code=NT#) 2.86 K/mm3 1.8-7.7 IMMATURE GRANULOCYTE # (test code=IG#) 0.03 x10 3/uL 0-0.03 LYMPHOCYTE # (test code=LY#) 1.21 K/mm3 1.0-5.0 MONOCYTE # (test code=MO#) 0.50 K/mm3 0-0.8 EOSINOPHIL # (test code=EO#) 0.06 K/mm3 0.0-0.5 BASOPHIL # (test code=BA#) 0.01 K/mm3 0.0-0.2 NUCLEATED RBC # (test code=NRBC#) 0.00 K/mm3 0.0-0.1 MANUAL DIFF REQUIRED (test code=MDIFF) NO, ONLY SCAN NEEDED DIFFERENTIAL [id number] 02:54:00* Test Item Value Reference Range Comments STAIN ACCEPTABILITY (test code=STN ACCEPTABLE) CABOT RINGS (test code=CAB) MORPHOLOGY COMMENT (test code=MOC) PLATELET ESTIMATE (test code=PLTEST) PLATELET MORPHOLOGY (test code=PLTMORPH) CBC W/AUTO [id number] 02:54:00* Test Item Value Reference Range Comments WHITE BLOOD CELL (test code=WBC) 4.7 K/mm3 4.5-12.5 RED BLOOD CELL (test code=RBC) 3.39 mill/mm3 4.0-5.8 HEMOGLOBIN (test code=HGB) 11.2 gram/dL 13.0-17.5 HEMATOCRIT (test code=HCT) 32.4 % 42.0-52.0 MEAN CELL VOLUME (test code=MCV) 95.6 fL 80-98 MEAN CELL HGB (test code=MCH) 33.0 picogram 27.0-33.0 MEAN CELL HGB CONCETRATION (test code=MCHC) 34.6 gram/dL 33.0-36.0 RED CELL DISTRIBUTION WIDTH (test code=RDW) 13.9 % 11.6-16.2 RED CELL DISTRIBUTION WIDTH SD (test code=RDW-SD) 48.9 fL 37.0-51.0 PLATELET COUNT (test code=PLT) 77 K/mm3 150-450 MEAN PLATELET VOLUME (test code=MPV) 12.3 fL 6.7-11.0 NEUTROPHIL % (test code=NT%) 61.3 % 39.0-69.0 IMMATURE GRANULOCYTE % (test code=IG%) 0.6 % 0.0-5.0 LYMPHOCYTE % (test code=LY%) 25.9 % 25.0-55.0 MONOCYTE % (test code=MO%) 10.7 % 0.0-10.0 EOSINOPHIL % (test code=EO%) 1.3 % 0.0-5.0 BASOPHIL % (test code=BA%) 0.2 % 0.0-1.0 NUCLEATED RBC % (test code=NRBC%) 0.0 % 0-0 NEUTROPHIL # (test code=NT#) 2.86 K/mm3 1.8-7.7 IMMATURE GRANULOCYTE # (test code=IG#) 0.03 x10 3/uL 0-0.03 LYMPHOCYTE # (test code=LY#) 1.21 K/mm3 1.0-5.0 MONOCYTE # (test code=MO#) 0.50 K/mm3 0-0.8 EOSINOPHIL # (test code=EO#) 0.06 K/mm3 0.0-0.5 BASOPHIL # (test code=BA#) 0.01 K/mm3 0.0-0.2 NUCLEATED RBC # (test code=NRBC#) 0.00 K/mm3 0.0-0.1 MANUAL DIFF REQUIRED (test code=MDIFF) NO, ONLY SCAN NEEDED DIFFERENTIAL [id number] 02:54:00* Test Item Value Reference Range Comments STAIN ACCEPTABILITY (test code=STN ACCEPTABLE) CABOT RINGS (test code=CAB) MORPHOLOGY COMMENT (test code=MOC) PLATELET ESTIMATE (test code=PLTEST) PLATELET MORPHOLOGY (test code=PLTMORPH) CBC W/AUTO [id number] 02:54:00* Test Item Value Reference Range Comments WHITE BLOOD CELL (test code=WBC) 4.7 K/mm3 4.5-12.5 RED BLOOD CELL (test code=RBC) 3.39 mill/mm3 4.0-5.8 HEMOGLOBIN (test code=HGB) 11.2 gram/dL 13.0-17.5 HEMATOCRIT (test code=HCT) 32.4 % 42.0-52.0 MEAN CELL VOLUME (test code=MCV) 95.6 fL 80-98 MEAN CELL HGB (test code=MCH) 33.0 picogram 27.0-33.0 MEAN CELL HGB CONCETRATION (test code=MCHC) 34.6 gram/dL 33.0-36.0 RED CELL DISTRIBUTION WIDTH (test code=RDW) 13.9 % 11.6-16.2 RED CELL DISTRIBUTION WIDTH SD (test code=RDW-SD) 48.9 fL 37.0-51.0 PLATELET COUNT (test code=PLT) 77 K/mm3 150-450 MEAN PLATELET VOLUME (test code=MPV) 12.3 fL 6.7-11.0 NEUTROPHIL % (test code=NT%) 61.3 % 39.0-69.0 IMMATURE GRANULOCYTE % (test code=IG%) 0.6 % 0.0-5.0 LYMPHOCYTE % (test code=LY%) 25.9 % 25.0-55.0 MONOCYTE % (test code=MO%) 10.7 % 0.0-10.0 EOSINOPHIL % (test code=EO%) 1.3 % 0.0-5.0 BASOPHIL % (test code=BA%) 0.2 % 0.0-1.0 NUCLEATED RBC % (test code=NRBC%) 0.0 % 0-0 NEUTROPHIL # (test code=NT#) 2.86 K/mm3 1.8-7.7 IMMATURE GRANULOCYTE # (test code=IG#) 0.03 x10 3/uL 0-0.03 LYMPHOCYTE # (test code=LY#) 1.21 K/mm3 1.0-5.0 MONOCYTE # (test code=MO#) 0.50 K/mm3 0-0.8 EOSINOPHIL # (test code=EO#) 0.06 K/mm3 0.0-0.5 BASOPHIL # (test code=BA#) 0.01 K/mm3 0.0-0.2 NUCLEATED RBC # (test code=NRBC#) 0.00 K/mm3 0.0-0.1 MANUAL DIFF REQUIRED (test code=MDIFF) NO, ONLY SCAN NEEDED DIFFERENTIAL [id number] 02:54:00* Test Item Value Reference Range Comments STAIN ACCEPTABILITY (test code=STN ACCEPTABLE) MORPHOLOGY COMMENT (test code=MOC) PLATELET ESTIMATE (test code=PLTEST) PLATELET MORPHOLOGY (test code=PLTMORPH) CBC W/AUTO [id number] 02:54:00* Test Item Value Reference Range Comments WHITE BLOOD CELL (test code=WBC) 4.7 K/mm3 4.5-12.5 RED BLOOD CELL (test code=RBC) 3.39 mill/mm3 4.0-5.8 HEMOGLOBIN (test code=HGB) 11.2 gram/dL 13.0-17.5 HEMATOCRIT (test code=HCT) 32.4 % 42.0-52.0 MEAN CELL VOLUME (test code=MCV) 95.6 fL 80-98 MEAN CELL HGB (test code=MCH) 33.0 picogram 27.0-33.0 MEAN CELL HGB CONCETRATION (test code=MCHC) 34.6 gram/dL 33.0-36.0 RED CELL DISTRIBUTION WIDTH (test code=RDW) 13.9 % 11.6-16.2 RED CELL DISTRIBUTION WIDTH SD (test code=RDW-SD) 48.9 fL 37.0-51.0 PLATELET COUNT (test code=PLT) 77 K/mm3 150-450 MEAN PLATELET VOLUME (test code=MPV) 12.3 fL 6.7-11.0 NEUTROPHIL % (test code=NT%) 61.3 % 39.0-69.0 IMMATURE GRANULOCYTE % (test code=IG%) 0.6 % 0.0-5.0 LYMPHOCYTE % (test code=LY%) 25.9 % 25.0-55.0 MONOCYTE % (test code=MO%) 10.7 % 0.0-10.0 EOSINOPHIL % (test code=EO%) 1.3 % 0.0-5.0 BASOPHIL % (test code=BA%) 0.2 % 0.0-1.0 NUCLEATED RBC % (test code=NRBC%) 0.0 % 0-0 NEUTROPHIL # (test code=NT#) 2.86 K/mm3 1.8-7.7 IMMATURE GRANULOCYTE # (test code=IG#) 0.03 x10 3/uL 0-0.03 LYMPHOCYTE # (test code=LY#) 1.21 K/mm3 1.0-5.0 MONOCYTE # (test code=MO#) 0.50 K/mm3 0-0.8 EOSINOPHIL # (test code=EO#) 0.06 K/mm3 0.0-0.5 BASOPHIL # (test code=BA#) 0.01 K/mm3 0.0-0.2 NUCLEATED RBC # (test code=NRBC#) 0.00 K/mm3 0.0-0.1 MANUAL DIFF REQUIRED (test code=MDIFF) NO, ONLY SCAN NEEDED DIFFERENTIAL [id number] 02:54:00* Test Item Value Reference Range Comments STAIN ACCEPTABILITY (test code=STN ACCEPTABLE) CABOT RINGS (test code=CAB) MORPHOLOGY COMMENT (test code=MOC) PLATELET ESTIMATE (test code=PLTEST) PLATELET MORPHOLOGY (test code=PLTMORPH) [id number] 21:15:00* Test Item Value Reference Range Comments GLUBED (test code=GLUBED) 105 mg/dL 74-106 Performed by certified paint booth operator at [facility] - CT HEAD/BRAIN W/O [id number] 20:21:00 Name: JORDANLOLA JOSEPH KENTRELL [facility] : 1955 Age/S: 64 / M [address] [facility] Unit #: [id number] Loc: [place] [address] Phys: Francisco Jensen II, MD Acct: [id number] Dis Date: Status: ADM IN PHONE #: [phone] Exam Date: 03/14/20192015 FAX #: [phone] Reason: s/p seizure, AMS EXAMS: CPT CODE: [id number] CT HEAD/BRAIN W/O CONT 06294 HISTORY: s/p seizure, AMS TECHNIQUE: Noncontrast 2.[address] of the head. Examination acquired within 24 hours of arrival. Automated exposure control for dose reduction. COMPARISON: Noncontrast CT brain June 27, 2018 FINDINGS: No lacerations or contusions of the scalp or facial soft tissues. Calvarium and skull base are intact. No acute hemorrhage. No intracranial mass, mass effect, or midline shift. No effacement of the sulci or castaneda-white matter interface. There is diffuse cortical atrophy with ventriculomegaly that is unchanged from the previous examination. Visualized paranasal sinuses are clear other than a small mucous retention cyst in the right maxillary sinus. Mastoid air cells and middle ear cavities are clear. Prior lens extractio n bilaterally. IMPRESSION: No acute i ntracranial process. Diffuse cortical atrophy is unchanged from the prio r exam. Location: RR at 2020 Reported and signed by: Jordan Mathew MD CC: Jann Lundberg; Francisco Jensen II, MD Technologist:Rach Sanchez,RT(R),CT CTDI: DLP: Trnscb Date/Time: 03/14/2019 (2020) t.MGR.[email or web address] Orig Print D/T: S: 03/14/2019 (2024) PAGE 1 Signed Report [id number] 19:16:00* Test Item Value Reference Range Comments PHOSPHORUS (test code=PHOS) 1.8 mg/dL 2.5-4.9 [id number] 19:16:00* Test Item Value Reference Range Comments MAGNESIUM (test code=MAG) 1.3 mg/dL 1.8-2.4 VITAMIN [id number] 19:16:00* Test Item Value Reference Range Comments VITAMIN B12 (test code=VITB12) 1192 pg/mL 193-986 [id number] 18:46:00* Test Item Value Reference Range Comments PHOSPHORUS (test code=PHOS) mg/dL 2.5-4.9 [id number] 18:46:00* Test Item Value Reference Range Comments MAGNESIUM (test code=MAG) 1.3 mg/dL 1.8-2.4 VITAMIN [id number] 18:46:00* Test Item Value Reference Range Comments VITAMIN B12 (test code=VITB12) pg/mL 193-986 [id number] 14:21:00* Test Item Value Reference Range Comments PHOSPHORUS (test code=PHOS) 1.4 mg/dL 2.5-4.9 [id number] 14:21:00* Test Item Value Reference Range Comments AMYLASE (test code=IRENE) 35 Unit/L 25-115 [id number] 14:21:00* Test Item Value Reference Range Comments MAGNESIUM (test code=MAG) 1.1 mg/dL 1.8-2.4 VITAMIN [id number] 14:21:00* Test Item Value Reference Range Comments VITAMIN B12 (test code=VITB12) 1209 pg/mL 193-986 FOLIC [id number] 14:21:00* Test Item Value Reference Range Comments FOLIC ACID (test code=FOL) 7.8 ng/mL 3.10-17.50 PROTHROMBIN [id number] 13:43:00* Test Item Value Reference Range Comments PROTHROMBIN TIME PATIENT (test code=PTP) 10.3 seconds 9.0-14.0 INTERNATIONAL NORMAL RATIO (test code=INR) 0.9 0.8-1.2 The therapeutic range for oral anticoagulant therapy formost indications is an international normalized ratio (INR)of between 2.0 and 3.0. The recommended therapeutic INRrange for various clinical situations is listed below: Clinical Situation INR range Pulmonary e mbolism treatment (2.0-3.0)Venous thrombosis treatmentVenous thrombosis prophylaxis (high risk surgery)Prevention of systemic embolism from: Acute myocardial infarction Valvular heart disease Atrial fibrillation Mechanical prosthetic heart valves (2.5-3.5) IS PATIENT ON ANTICOAGULANTS? NTHROMBOPLASTIN TIME [id number] 13:43:00* Test Item Value Reference Range Comments THROMBOPLASTIN TIME PARTIAL (test code=PTT) 28.3 seconds 25.0-36.5 IS PATIENT ON ANTICOAGULANTS? NCBC W/O [id number] 12:35:00* Test Item Value Reference Range Comments WHITE BLOOD CELL (test code=WBC) 6.8 K/mm3 4.5-12.5 RED BLOOD CELL (test code=RBC) 3.53 mill/mm3 4.0-5.8 HEMOGLOBIN (test code=HGB) 11.8 gram/dL 13.0-17.5 HEMATOCRIT (test code=HCT) 33.5 % 42.0-52.0 MEAN CELL VOLUME (test code=MCV) 94.9 fL 80-98 MEAN CELL HGB (test code=MCH) 33.4 picogram 27.0-33.0 MEAN CELL HGB CONCETRATION (test code=MCHC) 35.2 gram/dL 33.0-36.0 RED CELL DISTRIBUTION WIDTH (test code=RDW) 13.9 % 11.6-16.2 PLATELET COUNT (test code=PLT) 88 K/mm3 150-450 MEAN PLATELET VOLUME (test code=MPV) 12.0 fL 6.7-11.0 DRUGS OF ABUSE SCREEN [id number] 12:34:00* Test Item Value Reference Range Comments UA PH DIPSTICK (test code=LAMONT) 6.0 5.0-8.0 URN COCAINE (test code=COCAURN) NEGATIVE <300 ng/mL URN CANNABINOIDS (test code=CANNABURN) NEGATIVE <50 ng/mL URN AMPHETAMINE (test code=AMPHETURN) NEGATIVE <1000 ng/mL URN BARBITURATE (test code=BARBITURN) NEGATIVE <200 ng/mL URN BENZODIAZEPINE (test code=BENZOURN) NEGATIVE <200 ng/mL URN OPIATES (test code=OPIATURN) NEGATIVE <300 ng/mL URN PHENCYCLIDINE (PCP) (test code=PHENCURN) NEGATIVE <25 ng/mL URN METHADONE (test code=METHAURN) NEGATIVE <300 ng/mL [id number] 12:34:00* Test Item Value Reference Range Comments ALCOHOL (test code=ALC) < 3 mg/dL 0.0-3.0 INTERPRETIVE DATA NOTE: POSITIVE SCREENING RESULTS SHOULD BE CONSIDERED PRESUMPTIVE.WHEN COLLECTED FOR MEDICAL PURPOSES ONLY. SPECIMEN WILL NOTBE COLLECTED BY CHAIN OF CUSTODY.IF A CONFIRMATION OF POSITIVE RESULTS IS DESIRED, ACONFIRMATION TEST MUST BE REQUESTED BY THE PHYSICIAN AT ANADDITIONAL CHARGE TO THE PATIENT. [id number] 12:30:00* Test Item Value Reference Range Comments AMMONIA (test code=AMM) 68 umol/L 11-32 URINALYSIS [id number] 12:19:00* Test Item Value Reference Range Comments UA COLOR (test code=COLU) Light-Mobile YELLOW UA APPEARANCE (test code=APPU) Cloudy CLEAR UA GLUCOSE DIPSTICK (test code=DGLUU) NEGATIVE mg/dL NEGATIVE UA BILIRUBIN DIPSTICK (test code=BILU) 0.5 (1+) mg/dL NEGATIVE UA KETONE DIPSTICK (test code=KETU) 40 (2+) mg/dL NEGATIVE UA SPECIFIC GRAVITY (test code=SGU) 1.028 1.001-1.035 UA BLOOD DIPSTICK (test code=NESTOR) 0.1 mg/dL (1+) mg/dL NEGATIVE UA PH DIPSTICK (test code=LAMONT) 6.0 5.0-8.0 UA PROTEIN DIPSTICK (test code=PROU) 100 (2+) mg/dL NEGATIVE UA UROBILINIOGEN DIPSTICK (test code=URO) 4.0 (2+) mg/dL NEGATIVE UA NITRITE DIPSTICK (test code=TE) NEGATIVE NEGATIVE UA LEUKOCYTE ESTERASE W REFLEX (test code=LEUUR) NEGATIVE Nilson/uL NEGATIVE UA WBC (test code=WBCU) 0-5 per HPF 0-5 UA RBC (test code=RBCU) 0-2 #/HPF 0-5 UA EPITHELIAL CELLS (test code=EPIU) FEW per HPF FEW UA BACTERIA (test code=BACU) FEW #/HPF NONE UA HYALINE CAST (test code=HYALU) 3-5 #/LPF 0-5 UA MUCUS (test code=MUCU) FEW #/LPF FEW Urine Source? Clean CatchDRUGS OF ABUSE SCREEN [id number] 12:19:00* Test Item Value Reference Range Comments UA PH DIPSTICK (test code=LAMONT) 6.0 5.0-8.0 URN COCAINE (test code=COCAURN) <300 ng/mL URN CANNABINOIDS (test code=CANNABURN) <50 ng/mL URN AMPHETAMINE (test code=AMPHETURN) <1000 ng/mL URN BARBITURATE (test code=BARBITURN) <200 ng/mL URN BENZODIAZEPINE (test code=BENZOURN) <200 ng/mL URN OPIATES (test code=OPIATURN) <300 ng/mL URN PHENCYCLIDINE (PCP) (test code=PHENCURN) <25 ng/mL URN METHADONE (test code=METHAURN) <300 ng/mL BASIC METABOLIC [id number] 11:51:00* Test Item Value Reference Range Comments SODIUM (test code=NA) 136 mmol/L 136-145 POTASSIUM (test code=K) 4.0 mmol/L 3.5-5.1 CHLORIDE (test code=CL) 95.0 mmol/L 98-107 CARBON DIOXIDE (test code=CO2) 25.0 mmol/L 21-32 ANION GAP (test code=GAP) 20.0 10-20 GLUCOSE (test code=GLU) 151 mg/dL 74-106 BLOOD UREA NITROGEN (test code=BUN) 37 mg/dL 7-18 GLOMERULAR FILTRATION RATE (test code=GFR) 56 mL/min >=60 Estimated GFR by using Modified MDRD formula.Chronic kidney disease is defined as either kidney damageor GFR <60 mL/min/1.73 m2 for >3 months. CREATININE (test code=CREAT) 1.30 mg/dL 0.7-1.3 BUN/CREATININE RATIO (test code=BUN/CREA) 28.5 10-20 CALCIUM (test code=CA) 8.9 mg/dL 8.5-10.1 HEPATIC FUNCTION [id number] 11:51:00* Test Item Value Reference Range Comments TOTAL PROTEIN (test code=PROT) 7.3 gram/dL 6.4-8.2 ALBUMIN (test code=ALB) 4.5 g/dL 3.4-5.0 GLOBULIN (test code=GLOB) 2.8 gram/dL 2.7-4.2 ALBUMIN/GLOBULIN RATIO (test code=A/G) 1.6 0.75-1.50 BILIRUBIN TOTAL (test code=BILT) 2.70 mg/dL 0.0-1.0 BILIRUBIN DIRECT (test code=BILD) 0.79 mg/dL 0.0-0.20 SGOT/AST (test code=AST) 257 IUnit/L 15-37 SGPT/ALT (test code=ALT) 117 IUnit/L 12-78 ALKALINE PHOSPHATASE TOTAL (test code=ALKP) 66 IUnit/L 45-117 Note change in reference range due to change in reagent. [id number] 11:51:00* Test Item Value Reference Range Comments LIPASE (test code=LIP) 312 U/L 73.0-393.0 BASIC METABOLIC [id number] 11:46:00* Test Item Value Reference Range Comments SODIUM (test code=NA) 136 mmol/L 136-145 POTASSIUM (test code=K) 4.0 mmol/L 3.5-5.1 CHLORIDE (test code=CL) 95.0 mmol/L 98-107 CARBON DIOXIDE (test code=CO2) mmol/L 21-32 ANION GAP (test code=GAP) 10-20 GLUCOSE (test code=GLU) mg/dL 74-106 BLOOD UREA NITROGEN (test code=BUN) mg/dL 7-18 GLOMERULAR FILTRATION RATE (test code=GFR) mL/min >=60 CREATININE (test code=CREAT) mg/dL 0.7-1.3 BUN/CREATININE RATIO (test code=BUN/CREA) 10-20 CALCIUM (test code=CA) mg/dL 8.5-10.1 HEPATIC FUNCTION [id number] 11:46:00* Test Item Value Reference Range Comments TOTAL PROTEIN (test code=PROT) gram/dL 6.4-8.2 ALBUMIN (test code=ALB) g/dL 3.4-5.0 GLOBULIN (test code=GLOB) gram/dL 2.7-4.2 ALBUMIN/GLOBULIN RATIO (test code=A/G) 0.75-1.50 BILIRUBIN TOTAL (test code=BILT) mg/dL 0.0-1.0 BILIRUBIN DIRECT (test code=BILD) mg/dL 0.0-0.20 SGOT/AST (test code=AST) IUnit/L 15-37 SGPT/ALT (test code=ALT) IUnit/L 12-78 ALKALINE PHOSPHATASE TOTAL (test code=ALKP) IUnit/L 45-117 [id number] 11:46:00* Test Item Value Reference Range Comments LIPASE (test code=LIP) U/L 73.0-393.0 [U] XRAY FEMUR 2 VWS LEFT [id number] 11:18:00Images acquired, not reported on this accession number.[U] XRAY TIBIA FIBULA 2 VWS LEFT [id number] 11:18:00Images acquired, not reported on this accession number.[U] XRAY PELVIS MIN 3 VWS [id number] 10:52:00Images acquired, not reported on this accession number.URINALYSIS [id number] 12:55:00* Test Item Value Reference Range Comments UA COLOR (test code=COLU) YELLOW YELLOW UA APPEARANCE (test code=APPU) CLEAR CLEAR UA GLUCOSE DIPSTICK (test code=DGLUU) NEGATIVE mg/dL NEGATIVE UA BILIRUBIN DIPSTICK (test code=BILU) NEGATIVE mg/dL NEGATIVE UA KETONE DIPSTICK (test code=KETU) TRACE mg/dL NEGATIVE UA SPECIFIC GRAVITY (test code=SGU) 1.022 1.001-1.035 UA BLOOD DIPSTICK (test code=NESTOR) Negative mg/dL NEGATIVE UA PH DIPSTICK (test code=LAMONT) 7.0 5.0-8.0 UA PROTEIN DIPSTICK (test code=PROU) NEGATIVE mg/dL NEGATIVE UA UROBILINIOGEN DIPSTICK (test code=URO) 3.0 (1+) mg/dL NEGATIVE UA NITRITE DIPSTICK (test code=TE) NEGATIVE NEGATIVE UA LEUKOCYTE ESTERASE W REFLEX (test code=LEUUR) NEGATIVE Nilson/uL NEGATIVE UA WBC (test code=WBCU) 0-5 per HPF 0-5 UA RBC (test code=RBCU) 0-2 #/HPF 0-5 UA EPITHELIAL CELLS (test code=EPIU) None seen per HPF Few UA BACTERIA (test code=BACU) TRACE per HPF NONE Urine Source? VoidedURINALYSIS [id number] 12:42:00* Test Item Value Reference Range Comments UA COLOR (test code=COLU) YELLOW YELLOW UA APPEARANCE (test code=APPU) CLEAR CLEAR UA GLUCOSE DIPSTICK (test code=DGLUU) NEGATIVE mg/dL NEGATIVE UA BILIRUBIN DIPSTICK (test code=BILU) NEGATIVE mg/dL NEGATIVE UA KETONE DIPSTICK (test code=KETU) TRACE mg/dL NEGATIVE UA SPECIFIC GRAVITY (test code=SGU) 1.022 1.001-1.035 UA BLOOD DIPSTICK (test code=NESTOR) Negative mg/dL NEGATIVE UA PH DIPSTICK (test code=LAMONT) 7.0 5.0-8.0 UA PROTEIN DIPSTICK (test code=PROU) NEGATIVE mg/dL NEGATIVE UA UROBILINIOGEN DIPSTICK (test code=URO) 3.0 (1+) mg/dL NEGATIVE UA NITRITE DIPSTICK (test code=TE) NEGATIVE NEGATIVE UA LEUKOCYTE ESTERASE W REFLEX (test code=LEUUR) NEGATIVE Nilson/uL NEGATIVE UA WBC (test code=WBCU) 0-5 per HPF 0-5 UA RBC (test code=RBCU) 0-2 #/HPF 0-5 UA EPITHELIAL CELLS (test code=EPIU) per HPF Few UA BACTERIA (test code=BACU) per HPF NONE Urine Source? [id number] 15:09:00* Test Item Value Reference Range Comments MAGNESIUM (test code=MAG) 1.9 mg/dL 1.8-2.4 QNS.GIVEN TO PHLEB FOR REDRAW.BASIC METABOLIC [id number] 14:22:00* Test Item Value Reference Range Comments SODIUM (test code=NA) 136 mmol/L 136-145 POTASSIUM (test code=K) 4.4 mmol/L 3.5-5.1 CHLORIDE (test code=CL) 103.0 mmol/L 98-107 CARBON DIOXIDE (test code=CO2) 18.0 mmol/L 21-32 ANION GAP (test code=GAP) 19.4 10-20 GLUCOSE (test code=GLU) 83 mg/dL 74-106 BLOOD UREA NITROGEN (test code=BUN) 26 mg/dL 7-18 GLOMERULAR FILTRATION RATE (test code=GFR) > 60 mL/min >=60 Estimated GFR by using Modified MDRD formula.Chronic kidney disease is defined as either kidney damageor GFR <60 mL/min/1.73 m2 for >3 months. CREATININE (test code=CREAT) 0.70 mg/dL 0.7-1.3 BUN/CREATININE RATIO (test code=BUN/CREA) 37.1 10-20 CALCIUM (test code=CA) 8.7 mg/dL 8.5-10.1 CBC W/O [id number] 13:03:00* Test Item Value Reference Range Comments WHITE BLOOD CELL (test code=WBC) 12.5 K/mm3 4.5-12.5 RED BLOOD CELL (test code=RBC) 4.54 mill/mm3 4.0-5.8 HEMOGLOBIN (test code=HGB) 14.2 gram/dL 13.0-17.5 HEMATOCRIT (test code=HCT) 40.9 % 42.0-52.0 MEAN CELL VOLUME (test code=MCV) 90.1 fL 80-98 MEAN CELL HGB (test code=MCH) 31.3 picogram 27.0-33.0 MEAN CELL HGB CONCETRATION (test code=MCHC) 34.7 gram/dL 33.0-36.0 RED CELL DISTRIBUTION WIDTH (test code=RDW) 15.2 % 11.6-16.2 PLATELET COUNT (test code=PLT) 187 K/mm3 150-450 MEAN PLATELET VOLUME (test code=MPV) 11.3 fL 6.7-11.0 - CT HEAD/BRAIN W/O [id number] 11:42:00 Name: LOLA ORTEGA [facility] : 1955 Age/S: 63 / M [address] [facility] Unit #: [id number] Loc: [place] [address] Phys: Sadaf Loo MD Acct: [id number] Dis Date: Status: REG ER PHONE #: [phone] Exam Date: 06/27/2018 1114 FAX #: [phone] Reason: SEIZURE, FALL EXAMS: CPT CODE: [id number] CT HEAD/BRAIN W/O CONT 55226 TECHNIQUE: - CT C-SPINE W/O CONTRAST, - CT HEAD/BRAIN W/O CONT . This exam was performed using one or more of the following dose reduction techniques: Automated exposure control, adjustment of the mA and/ or kV according to patient size or use of iterative reconstruction technique. COMPARISON: CT brain 04/09/2018. CT cervical spine 04/09/2018 HISTORY: 63 years Male SEIZURE, FALL FINDINGS: CT BRAIN: Supra tentorial compartment and Posterior fossa: No hemorrhage. No intra-axial mass. No midline shift. Volume loss and small vessel white matter ischemic changes. More prominent cerebellar volume loss. Extra-axial structures: No hematoma, fluid c ollection, or mass. Ventricles and Basal Cisterns: No hydrocephalu s. Basal cisterns are normal. Visualized Orbits: No abnorma lities. Visualized Osseous structures: Within normal limits. Visualized paranasal Sinuses: Within normal limits. Oth er: None. FINDINGS: CT C_SPINE: Bones: No acute fractures. No suspicious focal lesion. PAGE 1 Signed Report (CONTINUED) Name: BABAKALPHONSOLex LOLA JOSEPH JR [facility] : 1955 Age/S: 63 / M [address] [facility] Unit #: [id number] c: [place] [address] Phys: Sadaf Loo MD Acct: [id number] Dis Date: Status: REG ER PHONE #: [phone] Exam Date: 06/27/2018 1114 FAX #: [phone] Reas on: SEIZURE, FALL EXAMS: CPT CODE: [id number] CT HEAD/BRAIN W/O CONT 34336 <Continued> Alignment: No subluxation. Soft tissues: No abnormalities. Prevertebral soft tissues, perivertebral soft tissues are normal. Intervertebral discs: Mild spondylosis multiple levels of the cervical spine. Other: None. IMPRESSION CT BRAIN AND C-SPINE: No acute hemorrhage. Volume loss and small vessel white matter ischemic change. More prominent cerebellar volume loss. No acute fractures cervical spine. Mild spondylosis multiple levels. at 1142 Reported and signed by: Shai Jacob M.D. CC: Sadaf Loo MD Technologist:Rach Sanchez,RT(R),CT CTDI: DLP: Trnscb Date/Time: 06/27/2018 (1142) t.EVAIRSTO Orig Print D/T: S: 06/27/2018 (1145) PAGE 2 Signed Report - CT C-SPINE W/O [id number] 11:42:00 [facility] 1955 [facility]S: 63 / [facility] [address] [facility]: [id number] Loc: [place] [id number] Phys: Sadaf Loo MD Acct: [id number] Di s Date: Status: REG ER PHONE #: [phone] Exam Date: 06/27/2018 1114 FAX #: [phone] Reason: SEIZURE, FALL EXAMS: CPT CODE: [id number] CT C-SPINE W/ O CONTRAST 15317 TECHNIQUE: - CT C- SPINE W/O CONTRAST, - CT HEAD/BRAIN W/O CONT . This exam was pe rformed using one or more of the following dose reduction techniques: Auto mated exposure control, adjustment of the mA and/ or kV according to patie nt size or use of iterative reconstruction technique. COMPAR MARGOT: CT brain 04/09/2018. CT cervical spine 04/09/2018 HISTORY: 63 years Male SEIZURE, FALL FINDINGS: CT BRAIN: Supra tentorial compartment and Posterior fossa: No hemorrhage. No intra-axial mass. No midline shift. Vol ume loss and small vessel white matter ischemic changes. More prominent ce rebellar volume loss. Extra-axial structures: No hematoma, fluid c ollection, or mass. Ventricles and Basal Cisterns: No hydrocephalu s. Basal cisterns are normal. Visualized Orbits: No abnorma lities. Visualized Osseous structures: Within normal limits. Visualized paranasal Sinuses: Within normal limits. Oth er: None. FINDINGS: CT C_SPINE: Bones: No acute fractures. No suspicious focal lesion. PAGE 1 Signed Report (CONTINUED) Name: LOLA THOMPSON JR [facility] : 1955 Age/S: 63 / M [address] [facility] Unit #: [id number] Lo c: [place] [address] Phys: Sadaf Loo MD Acct: [id number] Dis Date: Status: REG ER PHONE #: [phone] Exam Date: 06/27/2018 1114 FAX #: [phone] Reas on: SEIZURE, FALL EXAMS: CPT CODE: [id number] CT C-SPINE W/O CONTRAST 79827 <Continued> Alignment: No subluxation. Soft tissues: No abnormalities. Prevertebral soft tissues, perivertebral soft tissues are normal. Intervertebral discs: Mild spondylosis multiple levels of the cervical spine. Other: None. IMPRESSION CT BRAIN AND C-SPINE: No acute hemorrhage. Volume loss and small vessel white matter ischemic change. More prominent cerebellar volume loss. No acute fractures cervical spine. Mild spondylosis multiple levels. at 1142 Reported and signed by: Shai Jacob M.D. CC: Sadaf Loo MD Technologist:Rach Sanchez,RT(R),CT CTDI: DLP: Trnscb Date/Time: 06/27/2018 (9502) [email or web address] Orig Print D/T: S: 06/27/2018 (9609) PAGE 2 Signed Report BASIC METABOLIC [id number] 12:45:00* Test Item Value Reference Range Comments SODIUM (test code=NA) 141 mmol/L 136-145 POTASSIUM (test code=K) 4.2 mmol/L 3.5-5.1 CHLORIDE (test code=CL) 102.0 mmol/L 98-107 CARBON DIOXIDE (test code=CO2) 34.0 mmol/L 21-32 ANION GAP (test code=GAP) 9.2 10-20 GLUCOSE (test code=GLU) 95 mg/dL 74-106 BLOOD UREA NITROGEN (test code=BUN) 15 mg/dL 7-18 GLOMERULAR FILTRATION RATE (test code=GFR) > 60 mL/min >=60 Estimated GFR by using Modified MDRD formula.Chronic kidney disease is defined as either kidney damageor GFR <60 mL/min/1.73 m2 for >3 months. CREATININE (test code=CREAT) 0.80 mg/dL 0.7-1.3 BUN/CREATININE RATIO (test code=BUN/CREA) 18.0 10-20 CALCIUM (test code=CA) 10.0 mg/dL 8.5-10.1 [id number] 12:45:00* Test Item Value Reference Range Comments MAGNESIUM (test code=MAG) 2.2 mg/dL 1.8-2.4 BASIC METABOLIC [id number] 12:41:00* Test Item Value Reference Range Comments SODIUM (test code=NA) 141 mmol/L 136-145 POTASSIUM (test code=K) 4.2 mmol/L 3.5-5.1 CHLORIDE (test code=CL) 102.0 mmol/L 98-107 CARBON DIOXIDE (test code=CO2) mmol/L 21-32 ANION GAP (test code=GAP) 10-20 GLUCOSE (test code=GLU) mg/dL 74-106 BLOOD UREA NITROGEN (test code=BUN) mg/dL 7-18 GLOMERULAR FILTRATION RATE (test code=GFR) mL/min >=60 CREATININE (test code=CREAT) mg/dL 0.7-1.3 BUN/CREATININE RATIO (test code=BUN/CREA) 10-20 CALCIUM (test code=CA) mg/dL 8.5-10.1 [id number] 12:41:00* Test Item Value Reference Range Comments MAGNESIUM (test code=MAG) mg/dL 1.8-2.4 CBC W/AUTO [id number] 12:04:00* Test Item Value Reference Range Comments WHITE BLOOD CELL (test code=WBC) 5.9 K/mm3 4.5-12.5 RED BLOOD CELL (test code=RBC) 3.45 mill/mm3 4.0-5.8 HEMOGLOBIN (test code=HGB) 11.2 gram/dL 13.0-17.5 HEMATOCRIT (test code=HCT) 33.9 % 42.0-52.0 MEAN CELL VOLUME (test code=MCV) 98.3 fL 80-98 MEAN CELL HGB (test code=MCH) 32.5 picogram 27.0-33.0 MEAN CELL HGB CONCETRATION (test code=MCHC) 33.0 gram/dL 33.0-36.0 RED CELL DISTRIBUTION WIDTH (test code=RDW) 14.0 % 11.6-16.2 RED CELL DISTRIBUTION WIDTH SD (test code=RDW-SD) 50.5 fL 37.0-51.0 PLATELET COUNT (test code=PLT) 419 K/mm3 150-450 MEAN PLATELET VOLUME (test code=MPV) 9.6 fL 6.7-11.0 NEUTROPHIL % (test code=NT%) 44.9 % 39.0-69.0 IMMATURE GRANULOCYTE % (test code=IG%) 0.5 % 0.0-5.0 LYMPHOCYTE % (test code=LY%) 20.6 % 25.0-55.0 MONOCYTE % (test code=MO%) 26.5 % 0.0-10.0 EOSINOPHIL % (test code=EO%) 7.2 % 0.0-5.0 BASOPHIL % (test code=BA%) 0.3 % 0.0-1.0 NUCLEATED RBC % (test code=NRBC%) 0.0 % 0-0 NEUTROPHIL # (test code=NT#) 2.63 K/mm3 1.8-7.7 IMMATURE GRANULOCYTE # (test code=IG#) 0.03 x10 3/uL 0-0.03 LYMPHOCYTE # (test code=LY#) 1.21 K/mm3 1.0-5.0 MONOCYTE # (test code=MO#) 1.55 K/mm3 0-0.8 EOSINOPHIL # (test code=EO#) 0.42 K/mm3 0.0-0.5 BASOPHIL # (test code=BA#) 0.02 K/mm3 0.0-0.2 NUCLEATED RBC # (test code=NRBC#) 0.00 K/mm3 0.0-0.1 MANUAL DIFF REQUIRED (test code=MDIFF) NO BASIC METABOLIC [id number] 05:04:00* Test Item Value Reference Range Comments SODIUM (test code=NA) 143 mmol/L 136-145 POTASSIUM (test code=K) 3.6 mmol/L 3.5-5.1 CHLORIDE (test code=CL) 105.0 mmol/L 98-107 CARBON DIOXIDE (test code=CO2) 31.0 mmol/L 21-32 ANION GAP (test code=GAP) 10.6 10-20 GLUCOSE (test code=GLU) 87 mg/dL 74-106 BLOOD UREA NITROGEN (test code=BUN) 11 mg/dL 7-18 GLOMERULAR FILTRATION RATE (test code=GFR) > 60 mL/min >=60 Estimated GFR by using Modified MDRD formula.Chronic kidney disease is defined as either kidney damageor GFR <60 mL/min/1.73 m2 for >3 months. CREATININE (test code=CREAT) 0.70 mg/dL 0.7-1.3 BUN/CREATININE RATIO (test code=BUN/CREA) 15.5 10-20 CALCIUM (test code=CA) 8.5 mg/dL 8.5-10.1 [id number] 05:04:00* Test Item Value Reference Range Comments MAGNESIUM (test code=MAG) 1.6 mg/dL 1.8-2.4 CBC W/AUTO [id number] 10:43:00* Test Item Value Reference Range Comments WHITE BLOOD CELL (test code=WBC) 7.2 K/mm3 4.5-12.5 RED BLOOD CELL (test code=RBC) 3.60 mill/mm3 4.0-5.8 HEMOGLOBIN (test code=HGB) 11.6 gram/dL 13.0-17.5 HEMATOCRIT (test code=HCT) 35.3 % 42.0-52.0 MEAN CELL VOLUME (test code=MCV) 98.1 fL 80-98 MEAN CELL HGB (test code=MCH) 32.2 picogram 27.0-33.0 MEAN CELL HGB CONCETRATION (test code=MCHC) 32.9 gram/dL 33.0-36.0 RED CELL DISTRIBUTION WIDTH (test code=RDW) 14.1 % 11.6-16.2 RED CELL DISTRIBUTION WIDTH SD (test code=RDW-SD) 50.6 fL 37.0-51.0 PLATELET COUNT (test code=PLT) 122 K/mm3 150-450 MEAN PLATELET VOLUME (test code=MPV) 10.6 fL 6.7-11.0 NEUTROPHIL % (test code=NT%) 58.5 % 39.0-69.0 IMMATURE GRANULOCYTE % (test code=IG%) 0.4 % 0.0-5.0 LYMPHOCYTE % (test code=LY%) 21.4 % 25.0-55.0 MONOCYTE % (test code=MO%) 18.5 % 0.0-10.0 EOSINOPHIL % (test code=EO%) 1.1 % 0.0-5.0 BASOPHIL % (test code=BA%) 0.1 % 0.0-1.0 NUCLEATED RBC % (test code=NRBC%) 0.0 % 0-0 NEUTROPHIL # (test code=NT#) 4.20 K/mm3 1.8-7.7 IMMATURE GRANULOCYTE # (test code=IG#) 0.03 x10 3/uL 0-0.03 LYMPHOCYTE # (test code=LY#) 1.54 K/mm3 1.0-5.0 MONOCYTE # (test code=MO#) 1.33 K/mm3 0-0.8 EOSINOPHIL # (test code=EO#) 0.08 K/mm3 0.0-0.5 BASOPHIL # (test code=BA#) 0.01 K/mm3 0.0-0.2 NUCLEATED RBC # (test code=NRBC#) 0.00 K/mm3 0.0-0.1 MANUAL DIFF REQUIRED (test code=MDIFF) NO PT HARD STICK @V.LAB.SP3 04/14/18 0919BASI METABOLIC [id number] 05:40:00* Test Item Value Reference Range Comments SODIUM (test code=NA) 141 mmol/L 136-145 POTASSIUM (test code=K) 3.1 mmol/L 3.5-5.1 CHLORIDE (test code=CL) 109.0 mmol/L 98-107 CARBON DIOXIDE (test code=CO2) 23.0 mmol/L 21-32 ANION GAP (test code=GAP) 12.1 10-20 GLUCOSE (test code=GLU) 116 mg/dL 74-106 BLOOD UREA NITROGEN (test code=BUN) 10 mg/dL 7-18 GLOMERULAR FILTRATION RATE (test code=GFR) > 60 mL/min >=60 Estimated GFR by using Modified MDRD formula.Chronic kidney disease is defined as either kidney damageor GFR <60 mL/min/1.73 m2 for >3 months. CREATININE (test code=CREAT) 0.70 mg/dL 0.7-1.3 BUN/CREATININE RATIO (test code=BUN/CREA) 14.1 10-20 CALCIUM (test code=CA) 8.5 mg/dL 8.5-10.1 [id number] 05:40:00* Test Item Value Reference Range Comments MAGNESIUM (test code=MAG) 1.3 mg/dL 1.8-2.4 BASIC METABOLIC [id number] 05:33:00* Test Item Value Reference Range Comments SODIUM (test code=NA) 141 mmol/L 136-145 POTASSIUM (test code=K) 3.1 mmol/L 3.5-5.1 CHLORIDE (test code=CL) 109.0 mmol/L 98-107 CARBON DIOXIDE (test code=CO2) mmol/L 21-32 ANION GAP (test code=GAP) 10-20 GLUCOSE (test code=GLU) mg/dL 74-106 BLOOD UREA NITROGEN (test code=BUN) mg/dL 7-18 GLOMERULAR FILTRATION RATE (test code=GFR) mL/min >=60 CREATININE (test code=CREAT) mg/dL 0.7-1.3 BUN/CREATININE RATIO (test code=BUN/CREA) 10-20 CALCIUM (test code=CA) mg/dL 8.5-10.1 [id number] 05:33:00* Test Item Value Reference Range Comments MAGNESIUM (test code=MAG) mg/dL 1.8-2.4 LIPID PROFILE (CORONARY RISK)2018-04-11 04:58:00* Test Item Value Reference Range Comments TRIGLYCERIDES (test code=TRIG) 48 mg/dL 20-150 CHOLESTEROL (test code=CHOL) 79 mg/dL 0-200 CHOLESTEROL/HDL RATIO (test code=CHOLHDL) 1.0 RATIO 0-4.9 RISK ASSOCIATED WITH CHOL/HDL RATIOS: Risk Male Female1/2 AVERAGE 3.43 3.27AVERAGE 4.97 4.442X AVERAGE 9.55 7.053X AVERAGE 23.39 11.04 REFERENCE VALUE IS RELATED TO RISK LEVELS ASRECOMMENDED BY THE [facility]. HEART, LUNG, AND BLOOD INST. HDL CHOLESTEROL (test code=HDL) 42 mg/dL 40-60 LIPOPROTEIN LDL (test code=LDL) 34 mg/dL 100-129 Reference Interval: mg/dL mmol/L Optimal <100 <2.6Near/above optimal 100-129 2.6- 3.3Borderline High 130-159 3.4-4.1High 160-189 4.1-4.9Very High >=190 >=4.9=========This LDL result is a direct measurement.========= THYROID STIMULATING [id number] 04:58:00* Test Item Value Reference Range Comments THYROID STIMULATING HORMONE (test code=TSH) 0.769 uIU/mL 0.36-3.74 TSH REFERENCE RANGES: EUTHYROID: 0.35 - 4.3 mIU/mL HYPO : > 5.5 mIU/mL HYPER : < 0.35 mIU/mL CREATINE KINASE (CK)2018-04-11 04:51:00* Test Item Value Reference Range Comments CREATINE KINASE (CK) (test code=CK) 2855 IUnit/L 26-208 BASIC METABOLIC [id number] 04:30:00* Test Item Value Reference Range Comments SODIUM (test code=NA) 142 mmol/L 136-145 POTASSIUM (test code=K) 3.1 mmol/L 3.5-5.1 CHLORIDE (test code=CL) 108.0 mmol/L 98-107 CARBON DIOXIDE (test code=CO2) 20.0 mmol/L 21-32 ANION GAP (test code=GAP) 17.1 10-20 GLUCOSE (test code=GLU) 65 mg/dL 74-106 BLOOD UREA NITROGEN (test code=BUN) 12 mg/dL 7-18 GLOMERULAR FILTRATION RATE (test code=GFR) > 60 mL/min >=60 Estimated GFR by using Modified MDRD formula.Chronic kidney disease is defined as either kidney damageor GFR <60 mL/min/1.73 m2 for >3 months. CREATININE (test code=CREAT) 0.70 mg/dL 0.7-1.3 BUN/CREATININE RATIO (test code=BUN/CREA) 17.9 10-20 CALCIUM (test code=CA) 7.4 mg/dL 8.5-10.1 [id number] 04:30:00* Test Item Value Reference Range Comments MAGNESIUM (test code=MAG) 1.8 mg/dL 1.8-2.4 BASIC METABOLIC [id number] 04:26:00* Test Item Value Reference Range Comments SODIUM (test code=NA) 142 mmol/L 136-145 POTASSIUM (test code=K) 3.1 mmol/L 3.5-5.1 CHLORIDE (test code=CL) 108.0 mmol/L 98-107 CARBON DIOXIDE (test code=CO2) mmol/L 21-32 ANION GAP (test code=GAP) 10-20 GLUCOSE (test code=GLU) mg/dL 74-106 BLOOD UREA NITROGEN (test code=BUN) mg/dL 7-18 GLOMERULAR FILTRATION RATE (test code=GFR) mL/min >=60 CREATININE (test code=CREAT) mg/dL 0.7-1.3 BUN/CREATININE RATIO (test code=BUN/CREA) 10-20 CALCIUM (test code=CA) 7.4 mg/dL 8.5-10.1 [id number] 04:26:00* Test Item Value Reference Range Comments MAGNESIUM (test code=MAG) mg/dL 1.8-2.4 DRUGS OF ABUSE SCREEN [id number] 10:09:00* Test Item Value Reference Range Comments UA PH DIPSTICK (test code=LAMONT) 5.0 5.0-8.0 URN COCAINE (test code=COCAURN) NEGATIVE <300 ng/mL URN CANNABINOIDS (test code=CANNABURN) NEGATIVE <50 ng/mL URN AMPHETAMINE (test code=AMPHETURN) NEGATIVE <1000 ng/mL URN BARBITURATE (test code=BARBITURN) NEGATIVE <200 ng/mL URN BENZODIAZEPINE (test code=BENZOURN) NEGATIVE <200 ng/mL URN OPIATES (test code=OPIATURN) NEGATIVE <300 ng/mL URN PHENCYCLIDINE (PCP) (test code=PHENCURN) NEGATIVE <25 ng/mL URN METHADONE (test code=METHAURN) NEGATIVE <300 ng/mL DRUGS OF ABUSE SCREEN [id number] 09:23:00* Test Item Value Reference Range Comments UA PH DIPSTICK (test code=LAMONT) 5.0-8.0 URN COCAINE (test code=COCAURN) NEGATIVE <300 ng/mL URN CANNABINOIDS (test code=CANNABURN) NEGATIVE <50 ng/mL URN AMPHETAMINE (test code=AMPHETURN) NEGATIVE <1000 ng/mL URN BARBITURATE (test code=BARBITURN) NEGATIVE <200 ng/mL URN BENZODIAZEPINE (test code=BENZOURN) NEGATIVE <200 ng/mL URN OPIATES (test code=OPIATURN) NEGATIVE <300 ng/mL URN PHENCYCLIDINE (PCP) (test code=PHENCURN) NEGATIVE <25 ng/mL URN METHADONE (test code=METHAURN) NEGATIVE <300 ng/mL URINALYSIS [id number] 09:14:00* Test Item Value Reference Range Comments UA COLOR (test code=COLU) LIGHT YELLOW YELLOW UA APPEARANCE (test code=APPU) CLEAR CLEAR UA GLUCOSE DIPSTICK (test code=DGLUU) NEGATIVE mg/dL NEGATIVE UA BILIRUBIN DIPSTICK (test code=BILU) NEGATIVE mg/dL NEGATIVE UA KETONE DIPSTICK (test code=KETU) 80 mg/dL NEGATIVE UA SPECIFIC GRAVITY (test code=SGU) 1.011 1.001-1.035 UA BLOOD DIPSTICK (test code=NESTOR) 2+ (Moderate) NEGATIVE UA PH DIPSTICK (test code=LAMONT) 5.0 5.0-8.0 UA PROTEIN DIPSTICK (test code=PROU) Negative mg/dL NEGATIVE UA UROBILINIOGEN DIPSTICK (test code=URO) NEGATIVE mg/dL NEGATIVE UA NITRITE DIPSTICK (test code=TE) NEGATIVE NEGATIVE UA LEUKOCYTE ESTERASE W REFLEX (test code=LEUUR) NEGATIVE NEGATIVE UA WBC (test code=WBCU) 0-5 #/HPF 0-5 UA RBC (test code=RBCU) 0-2 #/HPF 0-5 UA EPITHELIAL CELLS (test code=EPIU) None seen per HPF FEW UA BACTERIA (test code=BACU) FEW #/HPF NONE UA HYALINE CAST (test code=HYALU) 0-2 #/LPF 0-5 UA MUCUS (test code=MUCU) FEW #/LPF FEW Urine Source? Clean CatchURINALYSIS [id number] 09:12:00* Test Item Value Reference Range Comments UA COLOR (test code=COLU) LIGHT YELLOW YELLOW UA APPEARANCE (test code=APPU) CLEAR CLEAR UA GLUCOSE DIPSTICK (test code=DGLUU) NEGATIVE mg/dL NEGATIVE UA BILIRUBIN DIPSTICK (test code=BILU) NEGATIVE mg/dL NEGATIVE UA KETONE DIPSTICK (test code=KETU) 80 mg/dL NEGATIVE UA SPECIFIC GRAVITY (test code=SGU) 1.011 1.001-1.035 UA BLOOD DIPSTICK (test code=NESTOR) 2+ (Moderate) NEGATIVE UA PH DIPSTICK (test code=LAMONT) 5.0 5.0-8.0 UA PROTEIN DIPSTICK (test code=PROU) Negative mg/dL NEGATIVE UA UROBILINIOGEN DIPSTICK (test code=URO) NEGATIVE mg/dL NEGATIVE UA NITRITE DIPSTICK (test code=TE) NEGATIVE NEGATIVE UA LEUKOCYTE ESTERASE W REFLEX (test code=LEUUR) NEGATIVE NEGATIVE UA WBC (test code=WBCU) per HPF 0-5 Urine Source? Clean Catch- XR CHEST 1 [id number] 02:45:00 FAX: Krissy Guzman [phone] Simpson: St: REG Name: LOLA FLORES [facility] : [birth year] 60 Age/S: 63/M [address] [facility] Unit #: [id number] Loc: [place] [address] Phys: Krissy Vasquez Acct: [id number] Dis Date: Status: REG ER PHONE #: [phone] Exam Date: 04/10/2018 0233 FAX #: [phone] Reason: tachycardia EXAMS: CPT CODE: [id number] XR CHEST 1 V 74766 HISTORY: Tachycard ia Location: C3 COMPARISON:12/27/2017 FINDINGS: Heart size and vascularity are within normal limits. The lungs are clear of focal consolidation. No effusion, pneumothorax, or ac lumbee osseous abnormality. IMPRESSION: 1 . No focal consolidation. No other acute abnormalities. Electronica lly Signed by Yoanna Jones MD on 04/10/2018 at 0245 Rep orted and signed by: Yoanna Jones MD CC: Krissy Vasquez MD Technologist: HEIDY VELA, RT Trnscrd Date/Time/By: 04/10/2018 (0245) : By: Elicia [id number] Orig Print D/T: S: 04/10/2018 (7490) PAGE 1 Signed Report HEPATIC FUNCTION [id number] 00:02:00* Test Item Value Reference Range Comments TOTAL PROTEIN (test code=PROT) 7.3 gram/dL 6.4-8.2 ALBUMIN (test code=ALB) 4.2 g/dL 3.4-5.0 GLOBULIN (test code=GLOB) 3.1 gram/dL 2.7-4.2 ALBUMIN/GLOBULIN RATIO (test code=A/G) 1.4 0.75-1.50 BILIRUBIN TOTAL (test code=BILT) 1.10 mg/dL 0.0-1.0 BILIRUBIN DIRECT (test code=BILD) 0.32 mg/dL 0.0-0.20 SGOT/AST (test code=AST) 144 IUnit/L 15-37 SGPT/ALT (test code=ALT) 65 IUnit/L 12-78 ALKALINE PHOSPHATASE TOTAL (test code=ALKP) 62 IUnit/L 45-117 Note change in reference range due to change in reagent. [id number] 00:02:00* Test Item Value Reference Range Comments LIPASE (test code=LIP) 122 U/L 73.0-393.0 [id number] 00:02:00* Test Item Value Reference Range Comments ALCOHOL (test code=ALC) 4 mg/dL 0.0-3.0 INTERPRETIVE DATA NOTE: POSITIVE SCREENING RESULTS SHOULD BE CONSIDERED PRESUMPTIVE.WHEN COLLECTED FOR MEDICAL PURPOSES ONLY. SPECIMEN WILL NOTBE COLLECTED BY CHAIN OF CUSTODY.IF A CONFIRMATION OF POSITIVE RESULTS IS DESIRED, ACONFIRMATION TEST MUST BE REQUESTED BY THE PHYSICIAN AT ANADDITIONAL CHARGE TO THE PATIENT. BASIC METABOLIC [id number] 23:56:00* Test Item Value Reference Range Comments SODIUM (test code=NA) 138 mmol/L 136-145 POTASSIUM (test code=K) 4.3 mmol/L 3.5-5.1 CHLORIDE (test code=CL) 104.0 mmol/L 98-107 CARBON DIOXIDE (test code=CO2) 23.0 mmol/L 21-32 ANION GAP (test code=GAP) 15.3 10-20 GLUCOSE (test code=GLU) 114 mg/dL 74-106 BLOOD UREA NITROGEN (test code=BUN) 15 mg/dL 7-18 GLOMERULAR FILTRATION RATE (test code=GFR) > 60 mL/min >=60 Estimated GFR by using Modified MDRD formula.Chronic kidney disease is defined as either kidney damageor GFR <60 mL/min/1.73 m2 for >3 months. CREATININE (test code=CREAT) 0.80 mg/dL 0.7-1.3 BUN/CREATININE RATIO (test code=BUN/CREA) 17.8 10-20 CALCIUM (test code=CA) 8.2 mg/dL 8.5-10.1 [id number] 23:56:00* Test Item Value Reference Range Comments MAGNESIUM (test code=MAG) 1.7 mg/dL 1.8-2.4 BASIC METABOLIC [id number] 23:52:00* Test Item Value Reference Range Comments SODIUM (test code=NA) 138 mmol/L 136-145 POTASSIUM (test code=K) 4.3 mmol/L 3.5-5.1 CHLORIDE (test code=CL) 104.0 mmol/L 98-107 CARBON DIOXIDE (test code=CO2) mmol/L 21-32 ANION GAP (test code=GAP) 10-20 GLUCOSE (test code=GLU) mg/dL 74-106 BLOOD UREA NITROGEN (test code=BUN) mg/dL 7-18 GLOMERULAR FILTRATION RATE (test code=GFR) mL/min >=60 CREATININE (test code=CREAT) mg/dL 0.7-1.3 BUN/CREATININE RATIO (test code=BUN/CREA) 10-20 CALCIUM (test code=CA) mg/dL 8.5-10.1 [id number] 23:52:00* Test Item Value Reference Range Comments MAGNESIUM (test code=MAG) mg/dL 1.8-2.4 CBC W/AUTO [id number] 23:37:00* Test Item Value Reference Range Comments WHITE BLOOD CELL (test code=WBC) 9.9 K/mm3 4.5-12.5 RED BLOOD CELL (test code=RBC) 3.81 mill/mm3 4.0-5.8 HEMOGLOBIN (test code=HGB) 12.3 gram/dL 13.0-17.5 HEMATOCRIT (test code=HCT) 35.9 % 42.0-52.0 MEAN CELL VOLUME (test code=MCV) 94.2 fL 80-98 MEAN CELL HGB (test code=MCH) 32.3 picogram 27.0-33.0 MEAN CELL HGB CONCETRATION (test code=MCHC) 34.3 gram/dL 33.0-36.0 RED CELL DISTRIBUTION WIDTH (test code=RDW) 14.2 % 11.6-16.2 RED CELL DISTRIBUTION WIDTH SD (test code=RDW-SD) 49.2 fL 37.0-51.0 PLATELET COUNT (test code=PLT) 114 K/mm3 150-450 MEAN PLATELET VOLUME (test code=MPV) 10.9 fL 6.7-11.0 NEUTROPHIL % (test code=NT%) 90.4 % 39.0-69.0 IMMATURE GRANULOCYTE % (test code=IG%) 0.5 % 0.0-5.0 LYMPHOCYTE % (test code=LY%) 3.6 % 25.0-55.0 MONOCYTE % (test code=MO%) 5.2 % 0.0-10.0 EOSINOPHIL % (test code=EO%) 0.1 % 0.0-5.0 BASOPHIL % (test code=BA%) 0.2 % 0.0-1.0 NUCLEATED RBC % (test code=NRBC%) 0.0 % 0-0 NEUTROPHIL # (test code=NT#) 8.91 K/mm3 1.8-7.7 IMMATURE GRANULOCYTE # (test code=IG#) 0.05 x10 3/uL 0-0.03 LYMPHOCYTE # (test code=LY#) 0.35 K/mm3 1.0-5.0 MONOCYTE # (test code=MO#) 0.51 K/mm3 0-0.8 EOSINOPHIL # (test code=EO#) 0.01 K/mm3 0.0-0.5 BASOPHIL # (test code=BA#) 0.02 K/mm3 0.0-0.2 NUCLEATED RBC # (test code=NRBC#) 0.00 K/mm3 0.0-0.1 - CT C-SPINE W/O [id number] 22:46:00 Name: LOLA ORTEGA JR [facility] : 1955 Age/S: 63 / M [address] Unit #: [id number] Loc: [place] [address] Phys: Krissy Vasquez MD Acct: [id number] Dis Date: Status: PRE ER PHONE #: [phone] Exam Date: 04/09/20184 FAX #: [phone] Reason: fall, seizure EXAMS: CPT CODE: [id number] CT C-SPINE W/O CONTRAST 44569 HISTORY: fall, seizure TECHNIQUE: Noncontrast 2.[address] of the head and cervical spine. Examination acquired within 24 hours of arrival. Automated exposure control for dose reduction. COMPARISON: Noncontrast CT scan of the brain December 27, [address] scan of the cervical spine August 06, 2016 FINDINGS: No acute hemorrhage. No intracranial mass, mass effect, or midline shift. No CT evidence of acute infarct. Silva-white matter differentiation is preserved. There is diffuse cortical atrophy and ex vacuo dilatation of the ventricles that is grossly stable from the previous exam. Visualized paranasal sinuses are clear other than a few polyps in the maxillary sinuses. Cerumen is present in the bilateral external auditory canals. Mastoid air cells and middle ear cavities are clear. Orbital contents are unremarkable. Calvarium and skull base are intact. Atherosclerotic disease is present in the vertebral ronni lu and carotid siphons There is no acute fracture. There i s height loss of the C5 and C6 vertebral bodies and the C3-C4 and C5-C6 an d C6-C7 intervertebral disc spaces. There is also loss of cervical lordosi s. These findings are grossly stable from the previous exam however. There is mild paraseptal emphysema in the right upper lobe. Ather osclerotic disease is present in the aorta and subclavian arteries. IMPRESSION: No acute intracranial process or significant change on the previous CT of the brain in December 2017. Ge neralized cortical atrophy and ex vacuo ventricular dilatation is unchan ged. No acute findings of the cervical spine. Degenerative lorena nges with loss of cervical lordosis is grossly stable appearing. PAGE 1 Signed Report (CONTINUED) Sherwin e: JORDANDEZKINSEY PFEIFFER [facility] : Age/S: 63 / M [address] Unit #: [id number] Loc: [place] [address] Phys: Krissy Vasquez MD Acct: [id number] Dis Harry e: Status: PRE ER PHONE #: [phone] Exam Date: 04/09/20182233 FAX #: [phone] Reason: fall, seizure EXAMS: CPT CODE: [id number] CT C-SPINE W/O CON TRAST 43099 <Continued> at 2246 Reported and signed by: Jordan Mathew MD CC: Krissy Vasquez MD Technologist:Casie Santana RT(R); YOANNA Yu CTDI: DLP: Trnscb Date/Time: 04/09/2018 (2245) t.[email or web address] Orig Print D/T: S: 04/09/2018 (2249) CTDI: DLP: PAGE 2 Signed Report - CT HEAD/BRAIN W/O [id number] 22:46:00 Name: LOLA ORTEGA [facility] : 1955 Age/S: 63 / M [address] Unit #: [id number] Loc: [place] [address] Phys: Matt Vasquez MD Acct: [id number] Di s Date: Status: PRE ER PHONE #: 7 Exam Date: 04/09/20182233 FAX #: Reason: fall, seizure EXAMS: CPT CODE: [id number] CT HEAD/BRAIN W/O CONT 12866 HISTORY: fall, seizure TECHNIQUE: Noncontrast 2.[address] of the head and cervical spi ne. Examination acquired within 24 hours of arrival. Automated exposure control for dose reduction. COMPARISON: Noncontrast CT scan of the brain December 27, [address] scan of the cervical spine August 06, 2016 FINDINGS: No acute hemorrhage. No intracra nial mass, mass effect, or midline shift. No CT evidence of acute infarct. Silva-white matter differentiation is preserved. There is diffuse cortical atrophy and ex vacuo dilatation of the ventricles that is grossly stable from the previous exam. Visualized paranasal sinuses are dez ar other than a few polyps in the maxillary sinuses. Cerumen is present in the bilateral external auditory canals. Mastoid air cells and middle ear cavities are clear. Orbital contents are unremarkable. Calvarium and skull base are intact. Atherosclerotic disease is present in the vertebral ronni lu and carotid siphons There is no acute fracture. There i s height loss of the C5 and C6 vertebral bodies and the C3-C4 and C5-C6 an d C6-C7 intervertebral disc spaces. There is also loss of cervical lordosi s. These findings are grossly stable from the previous exam however. There is mild paraseptal emphysema in the right upper lobe. Ather osclerotic disease is present in the aorta and subclavian arteries. IMPRESSION: No acute intracranial process or significant change on the previous CT of the brain in December 2017. Ge neralized cortical atrophy and ex vacuo ventricular dilatation is unchan ged. No acute findings of the cervical spine. Degenerative lorena nges with loss of cervical lordosis is grossly stable appearing. PAGE 1 Signed Report (CONTINUED) Nam e: LOLA ORTEGA [facility] : Age/S: 63 / M [address] [facility] Unit #: [id number] Loc: [place] [address] Phys: Krissy Vasquez MD Acct: [id number] Dis Harry e: Status: PRE ER PHONE #: Exam Date: 04/09/20182233 FAX #: [phone] Reason: fall, seizure EXAMS: CPT CODE: [id number] CT HEAD/BRAIN W/O CONT 71436 <Continued> at 2246 Reported and signed by: Jordan Mahtew MD CC: Krissy Vasquez MD Technologist:Casie PINEDA(R); YOANNA Yu CTDI: DLP: Trnscb Date/Time: 04/09/2018 (2245) [email or web address] Orig Print D/T: S: 04/09/2018 (546) CTDI: DLP: PAGE 2 Signed Report Urine [id number] 21:03:00* Test Item Value Reference Range Comments Urine WBC (test aomm=2204-1) NONE 0-5 Urine [id number] 21:03:00* Test Item Value Reference Range Comments Urine RBC (test vhen=32271-1) NONE 0-5 Urine Tnbmbgdi1597-72-69 21:03:00* Test Item Value Reference Range Comments Urine Bacteria (test pupd=21424-6) NONE NONE Urine Epithelial [id number] 21:03:00* Test Item Value Reference Range Comments Urine Epithelial Cells (test ijqg=87537-0) FEW NONE Urine Nltmt1892-25-58 21:03:00* Test Item Value Reference Range Comments Urine Sperm (test soof=5259-8) PRESENT NONE Urine Gzwtg8442-01-96 20:46:00* Test Item Value Reference Range Comments Urine Color (test wqfy=6976-2) YELLOW YELLOW Urine Uxtcjbz8198-65-70 20:46:00* Test Item Value Reference Range Comments Urine Clarity (test vzzk=33430-3) SL CLOUDY CLEAR Urine Specific Pulpiky8092-86-17 20:46:00* Test Item Value Reference Range Comments Urine Specific [place] (test awma=0497-3) 1.025 1.010-1.025 Urine [id number] 20:46:00* Test Item Value Reference Range Comments Urine pH (test fxpe=55503-3) 7 5-7 Urine Leukocyte Qyphzcak8128-05-44 20:46:00* Test Item Value Reference Range Comments Urine Leukocyte Esterase (test lofc=6746-9) NEGATIVE NEGATIVE Urine Bgmivzu3456-96-75 20:46:00* Test Item Value Reference Range Comments Urine Nitrite (test uwuf=60701-1) NEGATIVE NEGATIVE Urine Pzxvize6833-20-19 20:46:00* Test Item Value Reference Range Comments Urine Protein (test uyvn=6946-7) 2+ NEGATIVE Urine Glucose (UA)2017-11-11 20:46:00* Test Item Value Reference Range Comments Urine Glucose (UA) (test fzuz=7078-7) NEGATIVE NEGATIVE Urine Qxopcso3595-47-83 20:46:00* Test Item Value Reference Range Comments Urine Ketones (test qcbh=16819-2) 1+ NEGATIVE Urine Opiates Cjjfuq0213-96-89 20:46:00* Test Item Value Reference Range Comments Urine Opiates Screen (test iidl=83448-3) NEGATIVE NEGATIVE Urine Barbiturates Ahykdv9803-67-74 20:46:00* Test Item Value Reference Range Comments Urine Barbiturates Screen (test rnlt=750249950) NEGATIVE NEGATIVE Urine Phencyclidine Vhdeig7503-12-63 20:46:00* Test Item Value Reference Range Comments Urine Phencyclidine Screen (test yyhm=76343-1) NEGATIVE NEGATIVE Urine Amphetamines Khoewr7676-95-73 20:46:00* Test Item Value Reference Range Comments Urine Amphetamines Screen (test mgcj=27412-3) NEGATIVE NEGATIVE Urine Methamphetamines Rcvdnb4171-86-84 20:46:00* Test Item Value Reference Range Comments Urine Methamphetamines Screen (test code=Urine Methamphetamines Screen) NEGATIVE NEGATIVE Urine Benzodiazepines Tamxjo2575-22-61 20:46:00* Test Item Value Reference Range Comments Urine Benzodiazepines Screen (test bmyp=49054-6) NEGATIVE NEGATIVE Urine Cocaine Mwlnea0161-87-14 20:46:00* Test Item Value Reference Range Comments Urine Cocaine Screen (test hipg=4125-1) NEGATIVE NEGATIVE Urine Cannabinoids Mymsym4734-90-52 20:46:00* Test Item Value Reference Range Comments Urine Cannabinoids Screen (test tcwl=07547-4) NEGATIVE NEGATIVE THESE RESULTS ARE FOR MEDICAL TREATMENT ONLYTHIS REPORT CONTAINS UNCONFIR MED SCREENING RESULTS*POSITIVE RESULTS WILL BE CONFIRMED BY REFERENCE LAB UPON R EQUEST CUT-OFFDRUG CLASS CONCENTRATION ng/mLAmphetamines 1000Methamphetamines 1000Cocaine 300Opiate 300Phencyc lidine 25Cannabinoid 50Barbiturates 300Benzodiazepine 300Methadone 300Urine Methadone Shnkpp0101-97-53 20:46:00* Test Item Value Reference Range Comments Urine Methadone Screen (test rptu=25591-0) NEGATIVE NEGATIVE THESE RESULTS ARE FOR MEDICAL TREATMENT ONLYTHIS REPORT CONTAINS UNCONFIR MED SCREENING RESULTS*POSITIVE RESULTS WILL BE CONFIRMED BY REFERENCE LAB UPON R EQUEST CUT-OFFDRUG CLASS CONCENTRATION ng/mLAmphetamines 1000Methamphetamines 1000Cocaine Metabolite 300Opiate 300Phencyc lidine 25Cannabinoid 50Barbiturates 300Benzodiazepine 300Methadone 300Urine Vnkcxknpmkht5154-13-98 20:46:00* Test Item Value Reference Range Comments Urine Urobilinogen (test pvuj=86253-4) 0.2 0.2-1 Urine Ipwgocfgm9160-62-37 20:46:00* Test Item Value Reference Range Comments Urine Bilirubin (test kzph=0747-5) NEGATIVE NEGATIVE Urine Oeurk7540-56-03 20:46:00* Test Item Value Reference Range Comments Urine Blood (test chmw=75071-4) TRACE NEGATIVE Differential Total Cells Rxxawll2644-16-21 20:35:00* Test Item Value Reference Range Comments Differential Total Cells Counted (test code=Differential Total Cells Counted) 100 Neutrophils % (Manual)2017-11-11 20:35:00* Test Item Value Reference Range Comments Neutrophils % (Manual) (test meyf=24734-9) 92 40-74 Lymphocytes % (Manual)2017-11-11 20:35:00* Test Item Value Reference Range Comments Lymphocytes % (Manual) (test qqhl=857-4) 3 19-48 Monocytes % (Manual)2017-11-11 20:35:00* Test Item Value Reference Range Comments Monocytes % (Manual) (test stqn=886-1) 3 3.4-9.0 Eosinophils % (Manual)2017-11-11 20:35:00* Test Item Value Reference Range Comments Eosinophils % (Manual) (test idmv=778-7) 1 0-7 Reactive Oiedhedldax0457-99-50 20:35:00* Test Item Value Reference Range Comments Reactive Lymphocytes (test qugs=49520-2) 1 Platelet Qsvbcmex4747-45-17 20:35:00* Test Item Value Reference Range Comments Platelet Estimate (test rnfx=91532-8) ADEQUATE Platelet Morphology Fhuqmnb1536-63-09 20:35:00* Test Item Value Reference Range Comments Platelet Morphology Comment (test xrng=67959-3) NORMAL Red Cell Morphology Ebzcokn9441-39-98 20:35:00* Test Item Value Reference Range Comments Red Cell Morphology Comment (test rlys=7703-3) NORMAL Ethyl Alcohol Fbfwa5815-06-69 20:01:00* Test Item Value Reference Range Comments Ethyl Alcohol Level (test zueh=4086-3) -10.0 0.0-10.0 Creatine Kinase CQ1013-62-18 19:55:00* Test Item Value Reference Range Comments Creatine Kinase MB (test ecwk=88208-2) 2.70 0-5.0 Troponin D9188-72-45 19:55:00* Test Item Value Reference Range Comments Troponin I (test nwkq=FCT8723) 0.001 0-0.300 Sodium Xdoow9853-84-56 19:45:00* Test Item Value Reference Range Comments Sodium Level (test atmc=6409-6) 138 136-145 Potassium Smayf2441-97-27 19:45:00* Test Item Value Reference Range Comments Potassium Level (test hiyp=0829-4) 3.6 3.5-5.1 Chloride Ixilt2573-01-35 19:45:00* Test Item Value Reference Range Comments Chloride Level (test kvge=4465-5) 100 98-107 Carbon Dioxide Sdokg4632-19-66 19:45:00* Test Item Value Reference Range Comments Carbon Dioxide Level (test kxic=2324-1) 18 22-29 Anion Dnv4073-15-78 19:45:00* Test Item Value Reference Range Comments Anion Gap (test kzvi=31960-7) 23.6 8-16 Blood Urea Vomgnarp1135-08-68 19:45:00* Test Item Value Reference Range Comments Blood Urea Nitrogen (test txjd=8086-0) 17 7-26 Arelpgycrm3899-96-45 19:45:00* Test Item Value Reference Range Comments Creatinine (test yytc=7684-1) 0.90 0.72-1.25 BUN/Creatinine Ucmcl0266-24-61 19:45:00* Test Item Value Reference Range Comments BUN/Creatinine Ratio (test pyuo=6610-9) 19 6-25 Estimat Glomerular Filtration Gjwh2668-52-15 19:45:00* Test Item Value Reference Range Comments Estimat Glomerular Filtration Rate (test sucn=644571524) 60- >60 Ranges were taken from the National Kidney Disease Education Program and the [facility] [employer] literature.Reference ranges:60 or greater: Oisrlp94-06 ( for 3 consecutive months): Chronic kidney disease 15 or less: Kidney failure Glucose Frwvk0307-85-78 19:45:00* Test Item Value Reference Range Comments Glucose Level (test fhoi=ZAH0208) 166 74-118 Calcium Gteeg6766-92-79 19:45:00* Test Item Value Reference Range Comments Calcium Level (test nudq=78401-1) 8.8 8.4-10.2 Total Imljzclfy4698-43-34 19:45:00* Test Item Value Reference Range Comments Total Bilirubin (test upne=9587-5) 1.3 0.2-1.2 Aspartate Amino Transf (AST/SGOT)2017-11-11 19:45:00* Test Item Value Reference Range Comments Aspartate Amino Transf (AST/SGOT) (test code=Aspartate Amino Transf (AST/SGOT)) 70 5-34 Alanine Aminotransferase (ALT/SGPT)2017-11-11 19:45:00* Test Item Value Reference Range Comments Alanine Aminotransferase (ALT/SGPT) (test dgpk=4489-3) 37 0-55 Total Fwakrko0927-98-41 19:45:00* Test Item Value Reference Range Comments Total Protein (test mjsi=3752-9) 7.4 6.5-8.1 Nzvdslq4032-84-80 19:45:00* Test Item Value Reference Range Comments Albumin (test fqkk=8940-7) 4.4 3.5-5.0 Itbbutei5771-77-72 19:45:00* Test Item Value Reference Range Comments Globulin (test jtmt=34069-2) 3.0 2.3-3.5 Albumin/Globulin Hbzhu2873-87-82 19:45:00* Test Item Value Reference Range Comments Albumin/Globulin Ratio (test liod=9488-2) 1.5 0.8-2.0 Alkaline Koprqylvsmb0852-38-27 19:45:00* Test Item Value Reference Range Comments Alkaline Phosphatase (test occu=2803-3) 54 40-150 Creatine Iqybkx5059-77-37 19:45:00* Test Item Value Reference Range Comments Creatine Kinase (test lpyg=8809-9) 245 30-200 White Blood Vjmmk9777-59-19 19:28:00* Test Item Value Reference Range Comments White Blood Count (test facl=8797-8) 6.96 4.8-10.8 Red Blood Xeotf0279-23-56 19:28:00* Test Item Value Reference Range Comments Red Blood Count (test qkky=173-2) 3.98 4.3-5.7 Pshyrucccy7048-72-29 19:28:00* Test Item Value Reference Range Comments Hemoglobin (test qipb=78688-4) 13.4 14.0-18.0 Phncnrznxo6786-62-14 19:28:00* Test Item Value Reference Range Comments Hematocrit (test ubhm=3581-0) 37.8 38.2-49.6 Mean Corpuscular Qmtsjv8768-01-93 19:28:00* Test Item Value Reference Range Comments Mean Corpuscular Volume (test eaqd=895-4) 95.0 81-99 Mean Corpuscular Kqvoxdmhui2468-62-31 19:28:00* Test Item Value Reference Range Comments Mean Corpuscular Hemoglobin (test nvul=886-4) 33.7 28-32 Mean Corpuscular Hemoglobin Iyjhgsb1785-89-22 19:28:00* Test Item Value Reference Range Comments Mean Corpuscular Hemoglobin Concent (test gwjy=731-4) 35.4 31-35 Red Cell Distribution Oirgu7905-67-29 19:28:00* Test Item Value Reference Range Comments Red Cell Distribution Width (test gsve=48432-1) 13.3 11.7-14.4 Platelet Rehvd9776-76-98 19:28:00* Test Item Value Reference Range Comments Platelet Count (test drfs=456-4) 144 140-360 Neutrophils (%) (Auto)2017-11-11 19:28:00* Test Item Value Reference Range Comments Neutrophils (%) (Auto) (test odxx=86104-5) 87.2 38.7-80.0 Lymphocytes (%) (Auto)2017-11-11 19:28:00* Test Item Value Reference Range Comments Lymphocytes (%) (Auto) (test qokj=632-8) 4.3 18.0-39.1 Monocytes (%) (Auto)2017-11-11 19:28:00* Test Item Value Reference Range Comments Monocytes (%) (Auto) (test eilr=6949-5) 7.5 4.4-11.3 Eosinophils (%) (Auto)2017-11-11 19:28:00* Test Item Value Reference Range Comments Eosinophils (%) (Auto) (test vkbi=756-3) 0.0 0.0-6.0 Basophils (%) (Auto)2017-11-11 19:28:00* Test Item Value Reference Range Comments Basophils (%) (Auto) (test xiuy=646-4) 0.1 0.0-1.0 IM GRANULOCYTES %2017-11-11 19:28:00* Test Item Value Reference Range Comments IM GRANULOCYTES % (test code=IM GRANULOCYTES %) 0.9 0.0-1.0 Neutrophils # (Auto)2017-11-11 19:28:00* Test Item Value Reference Range Comments Neutrophils # (Auto) (test kmgz=042-4) 6.1 2.1-6.9 Lymphocytes # (Auto)2017-11-11 19:28:00* Test Item Value Reference Range Comments Lymphocytes # (Auto) (test arkx=89034-0) 0.3 1.0-3.2 Monocytes # (Auto)2017-11-11 19:28:00* Test Item Value Reference Range Comments Monocytes # (Auto) (test vpzb=213-2) 0.5 0.2-0.8 Eosinophils # (Auto)2017-11-11 19:28:00* Test Item Value Reference Range Comments Eosinophils # (Auto) (test tupp=843-0) 0.0 0.0-0.4 Basophils # (Auto)2017-11-11 19:28:00* Test Item Value Reference Range Comments Basophils # (Auto) (test pucc=173-7) 0.0 0.0-0.1 Absolute Immature Granulocyte (grhu4995-27-78 19:28:00* Test Item Value Reference Range Comments Absolute Immature Granulocyte (auto (test code=Absolute Immature Granulocyte (auto) 0.06 0-0.1 CT BRAIN EW4821-49-97 18:52:00 [place] [address] Patient Name: LOLA ORTEGA MR #: [id number] : 1955 Age/Sex: 62/M Req #: [id number] Adm Physician: Ordered by: KATHLEEN BRICEÑO MD Report #: [id number] Location: Room/Bed: Procedure: [id number] CT/CT BRAIN WO Exam Date: 11/11/17 Exam Time: 1830 REPORT STATUS: Signed Examination: CT head without contrast Clinical Indication: Seizure. Tech nique: Transaxial noncontrast images from the skull base through the vertex we re obtained. Sagittal and coronal reformatted images were done. Dose modulatio n, iterative reconstruction, and/or weight based adjustment of the mA/kV was u tilized to reduce the radiation dose to as low as reasonably achievable. Co mparison: Head CT performed September 19, 2007. Findings: Scalp: No abnorm alities. Bones: Intact. No fractures. No blastic or lytic lesions. Brai n sulci: Mild volume loss for patient's age with moderate volume loss of the b ilateral cerebellar hemispheres, unchanged. Ventricles: No hydrocephalus. Extra-axial space: No abnormalities. Parenchyma: There are scattered patchy areas of low-attenuation within subcortical and periventricular white matter, nonspecific, but could represent microvascular ischemic disease. No masses, hemorrhage, or acute or chronic cortical based vascular insults. Narayanan prasellar region: No abnormalities. Craniocervical junction: The foramen magnu m is patent. No Chiari one malformation. Incidental findings: Atheros clerotic calcification of the cavernous and supraclinoid internal carotid and V4 segments of the bilateral vertebral arteries. Impression: 1. No a cute intracranial finding when compared to prior head CT performed September 18. 2. Unchanged mild chronic microvascular ischemic change and mild cere bral and moderate cerebellar volume loss. Signed by: Dr. Anabell William M.D. on 11/11/2017 6:53 PM Dictated By: ANABELL MARTIN MD Shona ctronically Signed By: ANABELL MARTIN MD on 11/11/171852 Transcribed By: CLEO on 11/11/171852 COPY TO: KATHLEEN BRICEÑO MD Lactic Acid Fswrq7857-54-92 00:22:00* Test Item Value Reference Range Comments Lactic Acid Level (test code=Lactic Acid Level) 6.1 4.5-19.8 CT CERVICAL SPINE CA4824-74-88 18:53:00 [facility] [address] [place] [address] Patient Name: LOLA ORTEGA MR #: [id number] : 1955 Age/Sex: 62/M Req #: [id number] Adm Physician: Ordered by: CARLEE ROACH MD Report #: [id number] Location: ER Room/Bed: Procedure: [id number] CT/CT CERVICAL SPINE Date: 09/18/17 Exam Time: 1836 REPORT STATUS: Signed ADDENDUM #1 Dose modulation, iterative nan nstruction, and/or weight based adjustment of the mA/kV was utilized to reduce the radiation dose to as low as reasonably achievable. Signed by: DR Jl Parry M.D. on 10/08/2017 7:56 PM ORIGINAL REPORT History: Fall Comparison studies: None Technique: Axial images w ere obtained through the cervical region.. Coronal and sagittal images reconst ructed from the axial data.. Intravenous contrast: None Findings: Fr actures: None. Soft tissues: No gross abnormalities. Atlantoaxial articul ation: Degenerative changes without acute abnormality. Alignment: Straightenin g of the cervical spine lordosis. Minimal grade 1 anterolisthesis of C4 over C 5.. No scoliosis. Cervicomedullary junction: No abnormalities. The foramen mag num is patent. Vertebrae: No infection or neoplasm. Degenerative ch anges: At C3-4, decreased intervertebral space, diffuse disc osteophyte compl ex and bilateral uncinate process hypertrophy results in no significant canal stenosis and mild bilateral foraminal narrowing. At C4-5, diffuse disc osteo phyte complex, bilateral uncinate process hypertrophy and right facet hypertro phy results in mild canal stenosis and moderate right foraminal narrowing. A t C5-6, decreased intervertebral space with endplate sclerotic changes. Diffus e disc osteophyte complex, bilateral uncinate process hypertrophy and facet hy pertrophy results in moderate canal stenosis and mild bilateral foraminal narr owing. At C6-7, bilateral uncinate process hypertrophy and diffuse disc osteop hyte complex results in mild canal stenosis and mild bilateral foraminal narro wing. IMPRESSION: 1. No acute cervical spine abnormalities. Degenerat liang changes as described above. 2. Cannot exclude ligament, spinal cord and or vascular abnormalities on the basis of this examination. Signed by : DR Bar Parry M.D. on 09/18/2017 6:57 PM Dictated By: BAR SWEENEY MD 55 Transcribed By: CLEO on 09/18/171856 COPY TO: CARLEE ROACH MD CT BRAIN PK9324-15-09 18:51:00 [place] [address] Patient Name: LOLA ORTEGA MR #: [id number] : 1955 Age/Sex: 62/M Req #: [id number] Adm Physician: Ordered by: CARLEE ROACH MD Report #: [id number] Location: ER Room/Bed: Procedure: [id number] CT/CT BRAIN WO Exam Date: 09/18/17 Exam Time: 1836 REPORT STATUS: Signed ADDENDUM #1 Dose modulation, iterative reconstructio n, and/or weight based adjustment of the mA/kV was utilized to reduce the radi ation dose to as low as reasonably achievable. Signed by: DR Bar Parry M.D. on 10/08/2017 7:55 PM ORIGINAL REPORT Hi story:Seizures, fall Comparison studies:CT head 02/25/2017 Technique: Ax ial images were obtained from the skull base to the vertex. Coronal and sagitt al images reconstructed from the axial data. Intravenous contrast: None F indings: Scalp/skull: No abnormalities. Extra-axial spaces: No m asses. No fluid collections. Brain sulci: Mildly prominent at the supraten torial compartment. Moderately prominent at the cerebellum. Ventricles: Mild compensatory dilatation. No hydrocephalus. Parenchyma: Few hypodensitie s in the supratentorial white matter are small vessel ischemic changes. No mas ses, hemorrhage, acute or chronic cortical vascular insults. Sellar/suprase llar region: No abnormalities. Craniocervical junction: Patent foramen magnum. No Chiari one malformation. Incidental findings: Atherosclerotic calcif ications in the carotid siphons . Impression: No acute abnormalities. Stable examination. Chronic findings: 1. Mild generalized cerebral volum e loss. Moderate cerebellar volume loss, unchanged Mild supratentorial white m atter small vessel ischemic changes. Signed by: Kimberly Munroe on 09/18/2017 6:53 PM Dictated By: BAR RESENDIZ MD 54 Transcribed By: CLEO on 0 09/18/17 353 COPY TO: CARLEE ROACH MD Prothrombin Time 2017-02-25 20:14:00* Test Item Value Reference Range Comments Prothrombin Time (test nwac=0405-3) 13.0 11.9-14.5 Prothromb Time International Kzhcz1561-99-02 20:14:00* Test Item Value Reference Range Comments Prothromb Time International Ratio (test ceqb=0488-1) 0.94 Oral Anticoagulant Therapy INR Values:1. Low Intensity Therapy 1.5 - 2.02 . Moderate Intensity Therapy 2.0 - 3.03. High Intensity Therapy(1) 2.5 - 3. 54. High Intensity Therapy(2) 3.0 - 4.05. Panic Value INR > 5.0 Activated Partial Thromboplast Rvwm8915-14-21 20:14:00* Test Item Value Reference Range Comments Activated Partial Thromboplast Time (test ixhd=03354-4) 25.8 23.8-35.5 CT BRAIN WO [facility] [address] [place] [address] Patient Name: LOLA ORTEGA MR #: [id number] : 1955 Age/Sex: 61/M Req #: [id number] Adm Physician: Ordered by: CHANELL RUIZ MD Report #: [id number] Location: ER Room/Bed: Procedure: [id number] CT/CT BRAIN WO Exam Date: 02/11 06/28 Exam Time: 1900 REPORT STATUS: Signed H istory:New onset of seizures Comparison studies:None Technique: Axial i mages were obtained from the skull base to the vertex. Coronal and sagittal im ages reconstructed from the axial data. Intravenous contrast: None Findin gs: Scalp/skull: No abnormalities. Extra-axial spaces: No masses . No fluid collections. Brain sulci: Mildly prominent at the cerebrum. Mod erate prominent at the cerebellum Ventricles: Mild compensatory dilatation. No hydrocephalus. Parenchyma: Few hypodensities in the supratentorial wh ite matter are small vessel ischemic changes. No masses, hemorrhage, acute or chronic cortical vascular insults. Sellar/suprasellar region: No abnormalit ies. Craniocervical junction: Patent foramen magnum. No Chiari one malformati on. Incidental findings: Atherosclerotic calcifications in the carotid si phons . Impression: No acute abnormalities. Chronic findings: 1 . Mild generalized cerebral volume loss. Moderate cerebral volume loss, could be seen in anticonvulsive medication chronic treatment. 2. Mild supratentori al white matter small vessel ischemic changes. Signed by: DR Bar Parry M.D. on 02/25/2017 7:27 PM Dictated By: BAR RESENDIZ MD Shona ctronically Signed By: BAR RESENDIZ MD on 02/25/171926 Transcribed By: Rafael NOE on 02/25/171926 COPY TO: CHANELL RUIZ MD
--- OUTSIDE RECORDS SUMMARY | 2019-06-06 15:13 | XMS REPORT | Summary of Care ---
Author Author Xavier Blair Unknown Address [facility] Phone Unavailable Care Team Providers Care Labor Relations Manager Name Role Phone TATA PHIPPS M.D. Unavailable Unavailable CAIO JONES PA-C Unavailable Unavailable TAMIKA LINTON, BLANCA Guillory Unavailable Unavailable MARLON LUNDBERG MD Unavailable Unavailable JEFFERY MALDONADO MD, JALYN Aj Unavailable Unavailable CHANTELLE LINTON, TIARA Kyle Unavailable Unavailable Functional Status Name Dates Details Functional status health issues are not documented Status: Name Dates Details Cognitive status health issues are not documented Status: Problems Name Dates Details Pain of left lateral upper thigh (729.5, M79.652) Status: Active Left knee pain (719.46, M25.562) Status: Active Pain in joint involving left lower leg (719.46, M25.562) Status: Active Seizures (780.39, R56.9) Status: Active Herniated nucleus pulposus, L5-S1 (722.10, M51.27) Status: Active Medications Name Dates Details traMADol HCl - 50 MG Oral Tablet TAKE 1 TABLET EVERY 4 TO 6 HOURS NEEDED. Quantity: 30 KAREN TAYLORCAIO * Start : 13-Aug-2018 Active Allergies and Adverse Reactions Name Dates Details Allergy history not documented Status: Procedures Procedure Dates Details Procedures not documented Immunization Name Dates Details Immunizations not documented Social History Name Dates Details Unknown if ever smoked Vital Signs Date Test Result Details 19-Puc-198262:26 BP Systolic 152 mm[Hg] Status: BP Diastolic 86 mm[Hg] Status: Height 68 in Status: Weight 150 lb Status: Body Mass Index Calculated 22.81 kg/m2 Status: Body Surface Area Calculated 1.81 m2 Status: Temperature 98.1 f Status: Heart Rate 73 /min Status: Results Date Description Value Details Results not documented Plan of Care Name Dates Details Planned Observations Planned Goals not documented Planned Encounters Appointment; TATA PHIPPS M.D. On: 24-Nov-2018 10:45 Instructions Name Dates Details Instructions not documented Encounters Appointment; IRENE CRANDALL NP Encounter Diagnosis: Problem not documented On: 13-Aug-2018 10:15 Appointment; SHAI LOMAS M.D. Encounter Diagnosis: Problem not documented On: 15-Sep-2018 15:30 Appointment; TIARA LOCKHART M.D. Encounter Diagnosis: Problem not documented On: 07-Nov-2018 11:00 Appointment; TATA PHIPPS M.D. Encounter Diagnosis: Problem not documented On: 24-Nov-2018 10:45
[2019-06-06] MEDS ORDERED: SODIUM CHLORIDE 0.9% 1000ML 1,000 ML IV STA (15:34)
[2019-06-06 16:05] LABS: BASOPHILS % 0.6 % (0.0-1.0); EOSINOPHILS # (AUTO) 0.3 (0.0-0.4); HEMATOCRIT 37.9 % (38.2-49.6); HEMOGLOBIN 12.8 g/dL (14.0-18.0); LYMPHOCYTES # (AUTO) 2.8 (1.0-3.2); LYMPHOCYTES % 40.6 % (18.0-39.1); MEAN CORPUSCULAR HEMOGLOBIN 33.7 pg (28-32); MEAN CORPUSCULAR HGB CONC 33.8 g/dL (31-35); MEAN CORPUSCULAR VOLUME 99.7 fL (81-99); NEUTROPHILS # (AUTO) 2.7 (2.1-6.9); NEUTROPHILS % 39.1 % (38.7-80.0); PLATELET COUNT 313 x10e3/uL (140-360); RED CELL DISTRIBUTION WIDTH 14.3 % (11.7-14.4)
[2019-06-06 16:11] LABS: INR 0.96; PROTHROMBIN TIME 13.4 seconds (11.9-14.5)
[2019-06-06 16:12] LABS: PARTIAL THROMBOPLASTIN TIME 24.6 seconds (23.8-35.5)
--- NOTE | 2019-06-06 16:14 | Diagnostic Imaging Report ---
EXAMINATION: CHEST SINGLE (PORTABLE) COMPARISON: None INDICATION: Fall ^seizure ^[id number] ^155 DISCUSSION: Frontal view of the chest obtained at 1558 hours. HEART AND MEDIASTINUM: The cardiomediastinal silhouette is unremarkable. LINES: None. LUNGS: The lungs are well inflated and clear. No pneumonia or pulmonary edema. PLEURA: No pleural effusion or pneumothorax. BONES AND SOFT TISSUES: Calcific tendinosis of the left shoulder. The soft tissues are normal. IMPRESSION: No acute cardiopulmonary disease. Signed by: Dr. Jaret Lynn MD on 06/06/2019 4:10 PM
[2019-06-06 16:17] LABS: ALANINE AMINOTRANSFERASE 33 IU/L (0-55); ALBUMIN 4.1 g/dL (3.5-5.0); ALBUMIN/GLOBULIN RATIO 1.2 (0.8-2.0); ALKALINE PHOSPHATASE 46 IU/L (40-150); ANION GAP 17.2 mmol/L (8-16); BLOOD UREA NITROGEN 25 mg/dL (7-26); BUN/CREATININE RATIO 22 (6-25); CALCIUM 8.6 mg/dL (8.4-10.2); CARBON DIOXIDE 26 mmol/L (22-29); CHLORIDE 105 mmol/L (98-107); CREATINE KINASE 113 IU/L (30-200); CREATININE, SERUM 1.12 mg/dL (0.72-1.25); EST GLOMERULAR FILTRATION RATE > 60 ML/MIN (60-); GLUCOSE 78 mg/dL (74-118); MAGNESIUM 1.6 MG/DL (1.3-2.1); POTASSIUM 5.2 mmol/L (3.5-5.1); SODIUM 143 mmol/L (136-145)
[2019-06-06] MEDS ORDERED: LEVETIRACETAM 500MG/5ML VIAL 500 MG in SODIUM CHLORIDE 0.9% 100 ML 100 ML IV ONE (16:30)
[2019-06-06] MEDS ORDERED: LEVETIRACETAM 500 MG/5 ML VIAL IV ONE (16:32)
--- NOTE | 2019-06-06 17:12 | Diagnostic Imaging Report ---
Examination: CT BRAIN WO CONTRAST History:Fall; seizures; head injury. Comparison studies:None Technique: Axial images were obtained from the skull base to the vertex. Coronal and sagittal images reconstructed from the axial data. Dose modulation, iterative reconstruction, and/or weight based adjustment of the mA/kV was utilized to reduce the radiation dose to as low as reasonably achievable. Intravenous contrast: None Findings: Scalp: No abnormalities. Bones: No fractures, blastic or lytic lesions. Brain sulci: Generalized supratentorial volume loss for age. Severe cerebellar volume loss. Ventricles: No hydrocephalus. Extra-axial space: No abnormalities. Parenchyma: There are mild patchy areas of hypoattenuation in the periventricular and subcortical white matter, nonspecific. No masses, hemorrhage, or acute or chronic cortical based vascular insults. Sellar/suprasellar region: No abnormalities. Craniocervical junction: Patent foramen magnum. No Chiari one malformation. Incidental findings: None. Impression: No acute intracranial abnormalities. Generalized supratentorial volume loss for age. Severe cerebellar volume loss. Chronic microvascular ischemic change. Signed by: Dr. Radha William M.D. on 06/06/2019 5:09 PM
--- NOTE | 2019-06-06 17:21 | Diagnostic Imaging Report ---
Examination: CT CERVICAL SPINE WO CONTRAST HISTORY:Neck pain and injury after fall; seizure. COMPARISON:None. TECHNIQUE: Multidetector helical axial images were obtained without contrast from the foramen magnum to T1. Coronal and sagittal reformatted images were done. Bone and soft tissue windows were evaluated. Dose modulation, iterative reconstruction, and/or weight based adjustment of the mA/kV was utilized to reduce the radiation dose to as low as reasonably achievable. FINDINGS: Alignment:Normal alignment with straightening of normal lordosis. Vertebrae: Normal height and density. No acute fracture, infection or neoplasm. Disc space heights: Normal height except at C3-C4 and and from C5-C7 where there is moderate to severe narrowing. Caliber of spinal canal: Developmentally normal. Posterior fossa and craniocervical junction: Foramen magnum patent. No Chiari 1 malformation. Soft tissues: No abnormality. Degenerative changes: Disc osteophytes from C3-C4 through C6-C7 without canal stenosis. Grade I anterolisthesis of C4 on C5. Visualized lung apices: No abnormalities. IMPRESSION: 1. No acute abnormalities. 2. Degenerative change from C3-C4 through C6-C7. Grade I anterolisthesis of C4 on C5. Signed by: Dr. Radha William M.D. on 06/06/2019 5:18 PM
--- NOTE | 2019-06-06 17:54 | NUR ---
CAB REQUESTED WITH VOUCHER
== END 2019-06-06 18:13 | disposition home or self-care (01) ==
LOC: ER 15:09
DX: S01.01XA Laceration without foreign body of scalp, initial encounter (principal); W01.0XXA Fall on same level from slipping, tripping and stumbling without subsequent striking against object, initial encounter; Y92.008 Other place in unspecified non-institutional (private) residence as the place of occurrence of the external cause; G40.909 Epilepsy, unspecified, not intractable, without status epilepticus; I10 Essential (primary) hypertension; F32.9 Major depressive disorder, single episode, unspecified
CPT/HCPCS: 12002; 36415; 70450; 71045; 72125; 80053; 82550; 82553; 83735; 84484; 85025; 85610; 85730; 93005; 99284; J1953; J7030

== ENCOUNTER 2019-06-11 09:00 | Emergency (ER) | payer OTHER ==
[~2019-06-11] VITALS: Ht 170.2 cm; Wt 68.0 kg
[2019-06-11] MEDS ORDERED: NEOMYCIN/POLYMYX/BACITR OINT 0.9 GM PKT ONE (09:53)
== END 2019-06-11 09:52 | disposition home or self-care (01) ==
LOC: ER 09:00
DX: Z48.02 Encounter for removal of sutures (principal); I10 Essential (primary) hypertension; G40.909 Epilepsy, unspecified, not intractable, without status epilepticus; F32.9 Major depressive disorder, single episode, unspecified; F17.210 Nicotine dependence, cigarettes, uncomplicated
CPT/HCPCS: 99282

== ENCOUNTER 2019-09-23 16:11 | Emergency (ER) | payer OTHER ==
[~2019-09-23] VITALS: Ht 170.2 cm; Wt 68.0 kg
--- OUTSIDE RECORDS SUMMARY | 2019-09-23 16:39 | XMS REPORT | Continuity of Care Document ---
Author Author [facility] t Organization [facility] Address [address] [place] [address] Phone Unavailable Care Team Providers Care Turn Out Name Role Phone TAMIKA LINTON, MD RIOS PCP Zan WHYTE Attphys Unavailable TATA PHIPPS M.D. Attphys Unavailable TIARA LOCKHART M.D. Attphys Unavailable SHAI LOMAS M.D. Attphys Unavailable IRENE CRANDALL, GREGORY Attphys Unavailable Rafael BRICEÑO Attphys Unavailable Lex ROACH Attphys Unavailable Enrique RUIZ Attphys Unavailable Payers Payer Name Policy Type Policy Number Effective Date Expiration Date Lex white [employer] NA 2019 00:00:00 [facility] Problems Condition Name Condition Details Condition Category Status Onset Date Resolution Date Last Treatment Date Treating Clinician Comments Source Seizures Seizures Problem Active [facility] Pain of left lateral upper thigh Pain of left lateral upper thig h Problem Active [facility] Left knee pain Left knee pain Problem Active [facility] Pain in joint involving left lower leg Pain in joint involvi ng left lower leg Problem Active [facility] Herniated nucleus pulposus, L5-S1 Herniated nucleus pulposus, L5 -S1 Problem Active [facility] Problem Condition Active [facility] Allergies, Adverse Reactions, Alerts Allergy Name Allergy Type Status Severity Reaction(s) Onset Date Inacti ve Date Treating Clinician Comments Source niacin DA Active 2018-04-09 00:00:00 [facility] codeine DA Active U 2018-04-09 00:00:00 [facility] niacin DA Active 2018-01-16 00:00:00 [facility] codeine DA Active 2018-01-16 00:00:00 [facility] niacin DA Active 2017-07-01 00:00:00 [facility] codeine DA Active U 2017-07-01 00:00:00 [facility] Social History Social Habit Start Date Stop Date Quantity Comments Source Sex Assigned At 1955 00:00:00 1955 00:00:00 Male [facility] Medications Ordered Medication Name Filled Medication Name Start Date Stop Da te Current Medication? Ordering Clinician Indication Dosage Frequency Signature (SIG) Comments Components Source traMADol HCl - 50 MG Oral Tablet traMADol HCl - 50 MG Oral T ablet 2018-08-13 00:00:00 Yes CAIO JONES PA-C TAKE 1 TABLET EVERY 4 TO 6 HOURS NEEDED. [facility] Vital Signs Vital Name Observation Time Observation Value Comments Source Weight 2019-06-11 09:06:00 150 [lb_av] [facility] BMI (Body Mass Index) 2019-06-11 09:06:00 23.5 kg/m2 [facility] BP Systolic 2018-11-07 12:26:00 152 mm[Hg] [facility] BP Diastolic 2018-11-07 12:26:00 86 mm[Hg] [facility] Height 2018-11-07 12:26:00 68 [in_us] [facility] Weight 2018-11-07 12:26:00 150 [lb_av] [facility] Body Mass Index Calculated 2018-11-07 12:26:00 22.81 kg/m2 [facility] Temperature 2018-11-07 12:26:00 98.1 [degF] [facility] Heart Rate 2018-11-07 12:26:00 73 /min [facility] Procedures Procedure Date / Time Performed Performing Clinician Sourc e RPR S/N/AX/GEN/TRNK2.6-7.5CM 2019-06-06 00:00:00 [facility] Computed tomography of brain without radiopaque contrast 2019-05 00:00:00 [facility] Computed tomography of cervical spine without contrast 2019-05-14 5 00:00:00 [facility] CT Brain w/wo contrast [id number] 2018-08-19 00:00:00 [facility] MR Femur w/wo contrast [id number] 2018-08-19 00:00:00 [facility] MR Tib Fib wo contrast [id number] 2018-08-19 00:00:00 [facility] [U] XRAY PELVIS MIN 3 VWS [id number] 2018-08-13 00:00:00 [facility] [U] XRAY FEMUR 2 VWS LEFT [id number] 2018-08-13 00:00:00 [facility] [U] XRAY TIBIA FIBULA 2 VWS LEFT [id number] 2018-08-13 00:00:00 [facility] Plan of Care Planned Activity Planned Date Details Comments Source Diagnostic Test Pending 2018-08-19 00:00:00 CT Brain w/wo co ntrast 25977 [code = 57959] [facility] Diagnostic Test Pending 2018-08-19 00:00:00 MR Femur w/wo co ntrast 98240 [code = 53812] [facility] Diagnostic Test Pending 2018-08-19 00:00:00 MR Tib Fib wo co ntrast 59544 [code = 44469] [facility] ns Instructions Wound Care (General) [facility] Encounters Start Date/Time End Date/Time Encounter Type Admission Type Attendi [facility] Care Department Encounter ID Source 2019-06-11 09:00:00 2019-06-11 09:52:00 Departed Emergency Room [facility] [id number] [facility] 2019-06-06 15:09:00 2019-06-06 18:13:00 Departed Emergency Room 1 RIO WHYTE [facility] [id number] [facility] 2018-11-24 10:45:00 2018-11-24 10:45:00 Appointment; HENRIK PHIPPS M.D. SAMBASIVAN, AJAI, M.D. [facility] Orthoped[facility] at [facility] [id number] [facility] 2018-11-07 11:00:00 2018-11-07 11:00:00 Appointment; TIARA LOCKHART M.D. CONRAD, ERNEST, M.D. [facility] Orthopedics at [facility] Orthopedic and Spine [facility] [id number] [facility] 2018-09-15 15:30:00 2018-09-15 15:30:00 Appointment; SHAI LOMAS M.D. FERRENDELLI, JAMES, M.D. [facility] [id number] [facility] 2018-08-13 10:15:00 2018-08-13 10:15:00 Appointment; IRENE CRANDALL NP COCKERHAM, AMY, NP [facility] Orthopedics Trauma [facility] [id number] [facility] 2017-11-11 17:47:00 2017-11-11 21:30:00 Departed Emergency Room 1 KATHLEEN BRICEÑO [facility] [id number] [facility] 2017-09-18 18:11:00 2017-09-19 01:41:00 Departed Emergency Room 1 CARLEE ROACH [facility] [id number] [facility] 2017-02-25 17:57:00 2017-02-26 01:59:00 Departed Emergency Room ER CHANELL RUIZ [facility] [id number] [facility] Results Test Description Test Time Test Comments Results Result Comments Source Novel Coronavirus 2019 nCoV 2019-06-15 16:50:00 Test Item Novel Coronavirus 2019 nCoV (test code = COVID19) Negative Nega tive Does patient have the clinical criteria consistent with COVID-19? YIs the patien t going to be discharged home? Y- XR CHEST 1 [id number] 12:20:00 FAX: Jann Alberto MD [phone] [place]: St: REG FAX: Mac Jacobson MD Name: JORDANLOLA JOSEPH [facility] : 1955 Age/S: 64/M [address] [facility] Unit #: [id number] Loc: [place] [address] Phys: Mac Jacobson MD Acct: [id number] Dis Date: Status: REG ER PHONE #: [phone] Exam Date: 06/14/2019 1150 FAX #: [phone] Reason: CHEST PAIN EXAMS: CPT CODE: [id number] XR CHEST 1 V 51576 HISTORY: Chest pain. COMPARISON: April 10, 2018. Location: . No acute infiltrates, effusion or co ngestion is noted. Mild cardiomegaly. IMPRESSION: No acute infiltrates, effusion or congestion. Electroni sherri Signed by Roberta Leal on 06/14/2019 at 1220 Reported and signed by: Mike Leal M.D. CC: Jann Bhagat; Mac Jacobson MD Technologist: ELLIE Dunn(Wu) Trnscrd Date/Time/By: 06/14/2019 (1220) : By: [email or web address] Orig Print D/T: S: 06/14/2019 (8783) PAGE 1 Signed Report B- TYPE NATRIURETIC [id number] 11:42:00* Test Item Value Reference Range Interpretation Comments B-TYPE NATRIURETIC PEPTIDE (test code = BNP) 16.32 pgram/mL 0-100 N BASIC METABOLIC [id number] 11:35:00* Test Item Value Reference Range Interpretation Comments SODIUM (test code = NA) 142 mmol/L 136-145 N POTASSIUM (test code = K) 3.8 mmol/L 3.5-5.1 N CHLORIDE (test code = CL) 105.0 mmol/L 98-107 N CARBON DIOXIDE (test code = CO2) 22.0 mmol/L 21-32 N ANION GAP (test code = GAP) 18.8 10-20 N GLUCOSE (test code = GLU) 71 mg/dL 74-106 L BLOOD UREA NITROGEN (test code = BUN) 22 mg/dL 7-18 H GLOMERULAR FILTRATION RATE (test code = GFR) > 60 mL/min >=60 Estimated GFR by using Modified MDRD formula.Chronic kidney disease is defined as either kidney damageor GFR <60 mL/min/1.73 m2 for >3 months. CREATININE (test code = CREAT) 0.70 mg/dL 0.7-1.3 N BUN/CREATININE RATIO (test code = BUN/CREA) 31.4 10-20 H CALCIUM (test code = CA) 8.4 mg/dL 8.5-10.1 L HEPATIC FUNCTION [id number] 11:35:00* Test Item Value Reference Range Interpretation Comments TOTAL PROTEIN (test code = PROT) 7.5 gram/dL 6.4-8.2 N ALBUMIN (test code = ALB) 4.5 g/dL 3.4-5.0 N GLOBULIN (test code = GLOB) 3.0 gram/dL 2.7-4.2 N ALBUMIN/GLOBULIN RATIO (test code = A/G) 1.5 0.75-1.50 N BILIRUBIN TOTAL (test code = BILT) 1.00 mg/dL 0.0-1.0 N BILIRUBIN DIRECT (test code = BILD) 0.44 mg/dL 0.0-0.20 H SGOT/AST (test code = AST) 107 IUnit/L 15-37 H SGPT/ALT (test code = ALT) 49 IUnit/L 12-78 N ALKALINE PHOSPHATASE TOTAL (test code = ALKP) 63 IUnit/L 45-117 N Note change in reference range due to change in reagent. [id number] 11:35:00* Test Item Value Reference Range Interpretation Comments TROPONIN-I (test code = TROPI) <0.015 ng/mL 0-0.045 N BASIC METABOLIC [id number] 11:27:00* Test Item Value Reference Range Interpretation Comments SODIUM (test code = NA) 142 mmol/L 136-145 N POTASSIUM (test code = K) 3.8 mmol/L 3.5-5.1 N CHLORIDE (test code = CL) 105.0 mmol/L 98-107 N CARBON DIOXIDE (test code = CO2) mmol/L 21-32 ANION GAP (test code = GAP) 10-20 GLUCOSE (test code = GLU) mg/dL 74-106 BLOOD UREA NITROGEN (test code = BUN) mg/dL 7-18 GLOMERULAR FILTRATION RATE (test code = GFR) mL/min >=60 CREATININE (test code = CREAT) mg/dL 0.7-1.3 BUN/CREATININE RATIO (test code = BUN/CREA) 10-20 CALCIUM (test code = CA) mg/dL 8.5-10.1 HEPATIC FUNCTION [id number] 11:27:00* Test Item Value Reference Range Interpretation Comments TOTAL PROTEIN (test code = PROT) gram/dL 6.4-8.2 ALBUMIN (test code = ALB) g/dL 3.4-5.0 GLOBULIN (test code = GLOB) gram/dL 2.7-4.2 ALBUMIN/GLOBULIN RATIO (test code = A/G) 0.75-1.50 BILIRUBIN TOTAL (test code = BILT) mg/dL 0.0-1.0 BILIRUBIN DIRECT (test code = BILD) mg/dL 0.0-0.20 SGOT/AST (test code = AST) IUnit/L 15-37 SGPT/ALT (test code = ALT) IUnit/L 12-78 ALKALINE PHOSPHATASE TOTAL (test code = ALKP) IUnit/L 45-117 [id number] 11:27:00* Test Item Value Reference Range Interpretation Comments TROPONIN-I (test code = TROPI) ng/mL 0-0.045 CBC W/O [id number] 11:15:00* Test Item Value Reference Range Interpretation Comments WHITE BLOOD CELL (test code = WBC) 4.8 K/mm3 4.5-12.5 N RED BLOOD CELL (test code = RBC) 3.74 mill/mm3 4.0-5.8 L HEMOGLOBIN (test code = HGB) 12.5 gram/dL 13.0-17.5 L HEMATOCRIT (test code = HCT) 36.0 % 42.0-52.0 L MEAN CELL VOLUME (test code = MCV) 96.3 fL 80-98 N MEAN CELL HGB (test code = MCH) 33.4 picogram 27.0-33.0 H MEAN CELL HGB CONCETRATION (test code = MCHC) 34.7 gram/dL 33.0-36. 0 N RED CELL DISTRIBUTION WIDTH (test code = RDW) 13.8 % 11.6-16. 2 N PLATELET COUNT (test code = PLT) 178 K/mm3 150-450 N MEAN PLATELET VOLUME (test code = MPV) 9.9 fL 6.7-11.[address] CERVICAL SPINE [id number] 17:10:00 [place] [address] Patient Name: LOLA ORTEGA MR #: [id number] : 1955 Age/Sex: 64/M Req #: [id number] Adm Physician: Ordered by: RIO WHYTE MD Report #: [id number] Location: ER Room/Bed: Procedure: [id number] CT/ CT CERVICAL SPINE WO Exam Date: 06/06/19 Exam Time: 1603 REPORT STATUS: Signed [place]: CT CERVICAL SPINE WO CONTRAST HISTORY:Neck pain and injury after fa ll; seizure. COMPARISON:None. TECHNIQUE: Multidetector helical axial images were obtained without contrast from the foramen magnum to T1. Coronal and sag ittal reformatted images were done. Bone and soft tissue windows were evaluate d. Dose modulation, iterative reconstruction, and/or weight based adjustment of the mA/kV was utilized to reduce the radiation dose to as low as reasonably achievable. FINDINGS: Alignment:Normal alignment with straightening of normal lordosis. Vertebrae: Normal height and density. No acute fracture, infection or neoplasm. Disc space heights: Normal height except at C3-C4 and and from C5-C7 where there is moderate to severe narrowing. Caliber of sp inal canal: Developmentally normal. Posterior fossa and craniocervical junc tion: Foramen magnum patent. No Chiari 1 malformation. Soft tissues: No a bnormality. Degenerative changes: Disc osteophytes from C3-C4 through C6- C7 without canal stenosis. Grade I anterolisthesis of C4 on C5. Visualiz ed lung apices: No abnormalities. IMPRESSION: 1. No acute abnormalitie s. 2. Degenerative change from C3-C4 through C6-C7. Grade I anterolisthesi s of C4 on C5. Signed by: Dr. Radha William M.D. on 06/06/2019 5:18 P M Dictated By: RADHA MARTIN MD 1718 Transcribed By: CLEO on 06/06/19 1 718 COPY TO: RIO WHYTE MD CT BRAIN [id number] 17:04:00 [place] [address] Patient Name: LOLA ORTEGA MR #: [id number] : 1955 Age/Sex: 64/M Req #: [id number] Adm Physician: Ordered by: RIO WHYTE MD Report #: [id number] Location: ER Room/Bed: Procedure: [id number] CT/ CT BRAIN WO Exam Date: 06/06/19 Exam Time: 1603 REPORT STATUS: Signed Examination: CT BRAIN WO CONTRAST History:Fall; seizures; head injury. Comparison stud ies:None Technique: Axial images were obtained from the skull base to the vertex. Coronal and sagittal images reconstructed from the axial data. Dose modulation, iterative reconstruction, and/or weight based adjustment of the m A/kV was utilized to reduce the radiation dose to as low as reasonably achieva ble. Intravenous contrast: None Findings: Scalp: No abnormalities. Bones: No fractures, blastic or lytic lesions. Brain sulci: Generalized s upratentorial volume loss for age. Severe cerebellar volume loss. Ventricles : No hydrocephalus. Extra-axial space: No abnormalities. Parenchyma: There are mild patchy areas of hypoattenuation in the periventricular and subcortical white matter, nonspecific. No masses, hemorrhage, or acute or chr onic cortical based vascular insults. Sellar/suprasellar region: No abnorma lities. Craniocervical junction: Patent foramen magnum. No Chiari one malforma tion. Incidental findings: None. Impression: No acute intracr anial abnormalities. Generalized supratentorial volume loss for age. Severe cerebellar volume loss. Chronic microvascular ischemic change. Signed by: Dr. Radha William M.D. on 06/06/2019 5:09 PM Dictated By: RADHA MARTIN MD 08 Transcribed By: CLEO on 06/06/191708 COPY TO: Madai WHYTE MD CHEST SINGLE (PORTABLE)2019-06-06 16:08:00 [place] [address] Patient Name: LOLA ORTEGA MR #: [id number] : 1955 Age/Sex: 64/M Req #: [id number] Adm Physician: Ordered by: RIO WHYTE MD Report #: [id number] Location: ER Room/Bed: Procedure: [id number] DX/ CHEST SINGLE (PORTABLE) Exam Date: 06/06/19 Exam Subhash e: 155 REPORT STATUS: Signed EX AMINATION: CHEST SINGLE (PORTABLE) COMPARISON: None INDICATION: F all seizure [id number] DISCUSSION: Frontal view of the [facility] st obtained at 1558 hours. HEART AND MEDIASTINUM: The cardiomediastinal si lhouette is unremarkable. LINES: None. LUNGS: The lungs are well i nflated and clear. No pneumonia or pulmonary edema. PLEURA: No pleural eff usion or pneumothorax. BONES AND SOFT TISSUES: Calcific tendinosis of the left shoulder. The soft tissues are normal. IMPRESSION: No acute ca rdiopulmonary disease. Signed by: Dr. Jraet Davidson MD on 06/06/2019 4: 10 PM Dictated By: JARET DAVIDSON MD 09 Transcribed By: CLEO on 06/06/191609 COPY TO: RIO WHYTE MD Blood leukocytes automated count (number/volume)2019-06-06 15:40:00* Test Item Value Reference Range Interpretation Comments White Blood Count (test code = 6690-2) 6.79 4.8-10.8 [facility] automated count (number/volume)2019-06-06 15:40:00* Test Item Value Reference Range Interpretation Comments Red Blood Count (test code = 789-8) 3.80 4.3-5.7 [facility] hemoglobin measurement (moles/volume)2019-06-06 15:40:00* Test Item Value Reference Range Interpretation Comments Hemoglobin (test code = 02988-6) 12.8 14.0-18.0 [facility] CenterAutomated blood hematocrit (volume fraction)2019-06-06 15:40:00* Test Item Value Reference Range Interpretation Comments Hematocrit (test code = 4544-3) 37.9 38.2-49.6 [facility] Center[facility]ated erythrocyte mean corpuscular [id number] 15:40:00* Test Item Value Reference Range Interpretation Comments Mean Corpuscular Volume (test code = 787-2) 99.7 81-99 [facility] Center[facility] erythrocyte mean corpuscular hemoglobin (mass per erythrocyte)2019-06-06 15:40:00* Test Item Value Reference Range Interpretation Comments Mean Corpuscular Hemoglobin (test code = 785-6) 33.7 28-32 [facility] Center[facility] erythrocyte mean corpuscular hemoglobin concentration measurement (mass/volume)2019-06-06 15:40:00* Test Item Value Reference Range Interpretation Comments Mean Corpuscular Hemoglobin Concent (test code = 786-4) 33.8 31-35 [facility] CenterRDW [id number] 15:40:00* Test Item Value Reference Range Interpretation Comments Red Cell Distribution Width (test code = 95777-3) 14.3 11.7 -14.4 [facility] Center[facility] blood platelet count (count/volume)2019-06-06 15:40:00* Test Item Value Reference Range Interpretation Comments Platelet Count (test code = 777-3) 313 140-360 [facility] CenterAutom[facility] blood segmented neutrophil count as percentage of total [id number] 15:40:00* Test Item Value Reference Range Interpretation Comments Neutrophils (%) (Auto) (test code = 62767-6) 39.1 38.7-80.0 [facility] CenterAutomated blood lymphocyte count as percentage ot total [id number] 15:40:00* Test Item Value Reference Range Interpretation Comments Lymphocytes (%) (Auto) (test code = 736-9) 40.6 18.0-39.1 [facility] CenterAutom[facility] blood monocyte count as percentage of total htsafcbeuq9821-95-96 15:40:00* Test Item Value Reference Range Interpretation Comments Monocytes (%) (Auto) (test code = 5905-5) 15.0 4.4-11.3 [facility] CenterAutom[facility] blood eosinophil count as percentage of total ajznudragg2872-06-95 15:40:00* Test Item Value Reference Range Interpretation Comments Eosinophils (%) (Auto) (test code = 713-8) 4.0 0.0-6.0 [facility] CenterAutom[facility] blood basophil count as percentage of total jrnnnfibha6696-75-94 15:40:00* Test Item Value Reference Range Interpretation Comments Basophils (%) (Auto) (test code = 706-2) 0.6 0.0-1.0 [facility] CenterFluoroscopic procedure less than one hour [id number] 15:40:00* Test Item Value Reference Range Interpretation Comments IM GRANULOCYTES % (test code = IM GRANULOCYTES %) 0.7 0.0- 1.0 [facility] CenterAutom[facility] blood neutrophil count 2019-06-06 15:40:00* Test Item Value Reference Range Interpretation Comments Neutrophils # (Auto) (test code = 751-8) 2.7 2.1-6.9 [facility] Center[facility] lymphocytes count (number/volume) 2019-06-06 15:40:00* Test Item Value Reference Range Interpretation Comments Lymphocytes # (Auto) (test code = 16738-9) 2.8 1.0-3.2 [facility] CenterBlood monocytes automated count (number/volume)2019-06-06 15:40:00* Test Item Value Reference Range Interpretation Comments Monocytes # (Auto) (test code = 742-7) 1.0 0.2-0.8 [facility] CenterAutomated blood eosinophil count 2019-06-06 15:40:00* Test Item Value Reference Range Interpretation Comments Eosinophils # (Auto) (test code = 711-2) 0.3 0.0-0.4 [facility] CenterAutomated blood basophil count (count/volume)2019-06-06 15:40:00* Test Item Value Reference Range Interpretation Comments Basophils # (Auto) (test code = 704-7) 0.0 0.0-0.1 [facility] CenterFluoroscopic procedure less than one hour nnhqtxgu8028-71-42 15:40:00* Test Item Value Reference Range Interpretation Comments Absolute Immature Granulocyte (auto (rachel t code = Absolute Immature Granulocyte (auto) 0.05 0-0.1 [facility] CenterProthrombin time (PT) in platelet poor plasma by coagulation [id number] 15:40:00* Test Item Value Reference Range Interpretation Comments Prothrombin Time (test code = 5902-2) 13.4 11.9-14.5 [facility] CenterINR in Platelet poor plasma by Coagulation [id number] 15:40:00* Test Item Value Reference Range Interpretation Comments Prothromb Time International Ratio (test code = 6301-6) 0.96 Oral Anticoagulant Therapy INR Values:1. Low Intensity Therapy 1.5 - 2.02 . Moderate Intensity Therapy 2.0 - 3.03. High Intensity Therapy(1) 2.5 - 3. 54. High Intensity Therapy(2) 3.0 - 4.05. Panic Value INR > 5.0 [facility] CenterActivated partial thromboplastin time (aPTT) in platelet poor plasma by coagulation [id number] 15:40:00* Test Item Value Reference Range Interpretation Comments Activated Partial Thromboplast Time (test code = 38028-8) 24.6 23.8-35.5 [facility] plasma sodium measurement (moles/volume)2019-06-06 15:40:00* Test Item Value Reference Range Interpretation Comments Sodium Level (test code = 2951-2) 143 136-145 [facility] Hospitalerum or plasma potassium measurement (moles/volume)2019-06-06 15:40:00* Test Item Value Reference Range Interpretation Comments Potassium Level (test code = 2823-3) 5.2 3.5-5.1 [facility] Hospitalerum or plasma chloride measurement (moles/volume)2019-06-06 15:40:00* Test Item Value Reference Range Interpretation Comments Chloride Level (test code = 2075-0) 105 98-107 [facility] Hospitalerum or plasma carbon dioxide, total measurement (moles/volume)2019-06-06 15:40:00* Test Item Value Reference Range Interpretation Comments Carbon Dioxide Level (test code = 2028-9) 26 22-29 [facility] Hospitalerum or plasma anion [id number] 15:40:00* Test Item Value Reference Range Interpretation Comments Anion Gap (test code = 34608-2) 17.2 8-16 [facility] Hospitalerum or plasma urea nitrogen measurement (mass/volume)2019-06-06 15:40:00* Test Item Value Reference Range Interpretation Comments Blood Urea Nitrogen (test code = 3094-0) 25 7-26 [facility] Hospitalerum or plasma creatinine measurement (mass/volume)2019-06-06 15:40:00* Test Item Value Reference Range Interpretation Comments Creatinine (test code = 2160-0) 1.12 0.72-1.25 [facility] Hospitalerum or plasma urea nitrogen/creatinine mass [id number] 15:40:00* Test Item Value Reference Range Interpretation Comments BUN/Creatinine Ratio (test code = 3097-3) 22 6-25 [facility] CenterEstimated glomerular filtration rate (GFR) xvjbrfkblmsid2006-50-53 15:40:00* Test Item Value Reference Range Interpretation Comments Estimat Glomerular Filtration Rate (test code = 813919770) > 60 >60 Ranges were taken from the National Kidney Disease Education Program and the [facility] literature.Reference ranges:60 or greater: Hlgkud38-75 ( for 3 consecutive months): Chronic kidney disease 15 or less: Kidney failureWilson N. Jones Regional [facility] [id number] 15:40:00* Test Item Value Reference Range Interpretation Comments Glucose Level (test code = CTY1862) 78 74-118 [facility] calcium [facility] (mass/volume)2019-06-06 15:40:00* Test Item Value Reference Range Interpretation Comments Calcium Level (test code = 02145-8) 8.6 8.4-10.2 [facility] (mass/volume)2019-06-06 15:40:00* Test Item Value Reference Range Interpretation Comments Magnesium Level (test code = 52925-1) 1.6 1.3-2.1 [facility] total bilirubin measurement (mass/volume)2019-06-06 15:40:00* Test Item Value Reference Range Interpretation Comments Total Bilirubin (test code = 1975-2) 0.2 0.2-1.2 [facility] CenterFluoroscopic procedure less than one hour [id number] 15:40:00* Test Item Value Reference Range Interpretation Comments Aspartate Amino Transf (AST/SGOT) (test code = Aspartate Amino Transf (AST/SGOT)) 61 5-34 [facility] alanine aminotransferase measurement (enzymatic activity/volume)2019-06-06 15:40:00* Test Item Value Reference Range Interpretation Comments Alanine Aminotransferase (ALT/SGPT) (test code = 1742-6) 33 0-55 [facility] protein measurement (mass/volume)2019-06-06 15:40:00* Test Item Value Reference Range Interpretation Comments Total Protein (test code = 2885-2) 7.4 6.5-8.1 [facility] albumin [facility] (mass/volume)2019-06-06 15:40:00* Test Item Value Reference Range Interpretation Comments Albumin (test code = 1751-7) 4.1 3.5-5.0 [facility] CenterPl[facility] globulin measurement (mass/volume) 2019-06-06 15:40:00* Test Item Value Reference Range Interpretation Comments Globulin (test code = 97287-4) 3.3 2.3-3.5 [facility] albumin/globulin mass [id number] 15:40:00* Test Item Value Reference Range Interpretation Comments Albumin/Globulin Ratio (test code = 1759-0) 1.2 0.8-2.0 [facility] alkaline phosphatase measurement (enzymatic activity/volume)2019-06-06 15:40:00* Test Item Value Reference Range Interpretation Comments Alkaline Phosphatase (test code = 6768-6) 46 40-150 [facility] creatine kinase measurement (enzymatic activity/volume)2019-06-06 15:40:00* Test Item Value Reference Range Interpretation Comments Creatine Kinase (test code = 2157-6) 113 30-200 [facility] creatine kinase MB measurement (mass/volume)2019-06-06 15:40:00* Test Item Value Reference Range Interpretation Comments Creatine Kinase MB (test code = 60880-9) 2.70 0-5.0 [facility] CenterTroponin I measurement by highly sensitive enzyme [id number] 15:40:00* Test Item Value Reference Range Interpretation Comments Troponin I (test code = 59803-5) < 0.001 0-0.300 [facility] CenterGLUBED2020-02-[facility] 18:33:00* Test Item Value Reference Range Interpretation Comments GLUBED (test code = GLUBED) 100 mg/dL 74-106 N Performed by certified jewel lathe operator at [facility] [id number] 18:33:00* Test Item Value Reference Range Interpretation Comments GLUBED (test code = GLUBED) 101 mg/dL 74-106 N Performed by certified jewel lathe operator at [facility] CBC W/AUTO [id number] 07:55:00* Test Item Value Reference Range Interpretation Comments WHITE BLOOD CELL (test code = WBC) 4.5 K/mm3 4.5-12.5 N RED BLOOD CELL (test code = RBC) 3.26 mill/mm3 4.0-5.8 L HEMOGLOBIN (test code = HGB) 11.0 gram/dL 13.0-17.5 L HEMATOCRIT (test code = HCT) 31.1 % 42.0-52.0 L MEAN CELL VOLUME (test code = MCV) 95.4 fL 80-98 N MEAN CELL HGB (test code = MCH) 33.7 picogram 27.0-33.0 H MEAN CELL HGB CONCETRATION (test code = MCHC) 35.4 gram/dL 33.0-36. 0 N RED CELL DISTRIBUTION WIDTH (test code = RDW) 13.5 % 11.6-16. 2 N RED CELL DISTRIBUTION WIDTH SD (test code = RDW-SD) 47.1 fL 37 .0-51.0 N PLATELET COUNT (test code = PLT) 84 K/mm3 150-450 L MEAN PLATELET VOLUME (test code = MPV) 12.4 fL 6.7-11.0 H NEUTROPHIL % (test code = NT%) 59.7 % 39.0-69.0 N IMMATURE GRANULOCYTE % (test code = IG%) 0.4 % 0.0-5.0 N LYMPHOCYTE % (test code = LY%) 28.0 % 25.0-55.0 N MONOCYTE % (test code = MO%) 8.5 % 0.0-10.0 N EOSINOPHIL % (test code = EO%) 2.7 % 0.0-5.0 N BASOPHIL % (test code = BA%) 0.7 % 0.0-1.0 N NUCLEATED RBC % (test code = NRBC%) 0.0 % 0-0 N NEUTROPHIL # (test code = NT#) 2.66 K/mm3 1.8-7.7 N IMMATURE GRANULOCYTE # (test code = IG#) 0.02 x10 3/uL 0-0.03 N LYMPHOCYTE # (test code = LY#) 1.25 K/mm3 1.0-5.0 N MONOCYTE # (test code = MO#) 0.38 K/mm3 0-0.8 N EOSINOPHIL # (test code = EO#) 0.12 K/mm3 0.0-0.5 N BASOPHIL # (test code = BA#) 0.03 K/mm3 0.0-0.2 N NUCLEATED RBC # (test code = NRBC#) 0.00 K/mm3 0.0-0.1 N MANUAL DIFF REQUIRED (test code = MDIFF) NO, ONLY SCAN NEEDED DIFFERENTIAL [id number] 07:55:00* Test Item Value Reference Range Interpretation Comments STAIN ACCEPTABILITY (test code = STN ACCEPTABLE) STAIN ACCEPTABLE ANISOCYTOSIS (test code = ANISO) 2+ MACROCYTOSIS (test code = MACR) 2+ MORPHOLOGY COMMENT (test code = MOC) NORMAL PLATELET ESTIMATE (test code = PLTEST) DECREASED PLATELET MORPHOLOGY (test code = PLTMORPH) NORMAL COMPREHENSIVE METABOLIC [id number] 04:22:00* Test Item Value Reference Range Interpretation Comments SODIUM (test code = NA) 138 mmol/L 136-145 N POTASSIUM (test code = K) 3.4 mmol/L 3.5-5.1 L CHLORIDE (test code = CL) 103.0 mmol/L 98-107 N CARBON DIOXIDE (test code = CO2) 25.0 mmol/L 21-32 N ANION GAP (test code = GAP) 13.4 10-20 N GLUCOSE (test code = GLU) 97 mg/dL 74-106 N BLOOD UREA NITROGEN (test code = BUN) 19 mg/dL 7-18 H GLOMERULAR FILTRATION RATE (test code = GFR) > 60 mL/min >=60 Estimated GFR by using Modified MDRD formula.Chronic kidney disease is defined as either kidney damageor GFR <60 mL/min/1.73 m2 for >3 months. CREATININE (test code = CREAT) 0.80 mg/dL 0.7-1.3 N BUN/CREATININE RATIO (test code = BUN/CREA) 23.8 10-20 H TOTAL PROTEIN (test code = PROT) 6.3 gram/dL 6.4-8.2 L ALBUMIN (test code = ALB) 3.6 g/dL 3.4-5.0 N GLOBULIN (test code = GLOB) 2.7 gram/dL 2.7-4.2 N ALBUMIN/GLOBULIN RATIO (test code = A/G) 1.3 0.75-1.50 N CALCIUM (test code = CA) 8.2 mg/dL 8.5-10.1 L BILIRUBIN TOTAL (test code = BILT) 1.30 mg/dL 0.0-1.0 H SGOT/AST (test code = AST) 177 IUnit/L 15-37 H SGPT/ALT (test code = ALT) 107 IUnit/L 12-78 H ALKALINE PHOSPHATASE TOTAL (test code = ALKP) 57 IUnit/L 45-117 N Note change in reference range due to change in reagent. [id number] 04:12:00* Test Item Value Reference Range Interpretation Comments AMMONIA (test code = AMM) 51 umol/L 11-32 H COMPREHENSIVE METABOLIC [id number] 04:12:00* Test Item Value Reference Range Interpretation Comments SODIUM (test code = NA) 138 mmol/L 136-145 N POTASSIUM (test code = K) 3.4 mmol/L 3.5-5.1 L CHLORIDE (test code = CL) 103.0 mmol/L 98-107 N CARBON DIOXIDE (test code = CO2) mmol/L 21-32 ANION GAP (test code = GAP) 10-20 GLUCOSE (test code = GLU) mg/dL 74-106 BLOOD UREA NITROGEN (test code = BUN) mg/dL 7-18 GLOMERULAR FILTRATION RATE (test code = GFR) mL/min >=60 CREATININE (test code = CREAT) mg/dL 0.7-1.3 BUN/CREATININE RATIO (test code = BUN/CREA) 10-20 TOTAL PROTEIN (test code = PROT) gram/dL 6.4-8.2 ALBUMIN (test code = ALB) g/dL 3.4-5.0 GLOBULIN (test code = GLOB) gram/dL 2.7-4.2 ALBUMIN/GLOBULIN RATIO (test code = A/G) 0.75-1.50 CALCIUM (test code = CA) mg/dL 8.5-10.1 BILIRUBIN TOTAL (test code = BILT) mg/dL 0.0-1.0 SGOT/AST (test code = AST) IUnit/L 15-37 SGPT/ALT (test code = ALT) IUnit/L 12-78 ALKALINE PHOSPHATASE TOTAL (test code = ALKP) IUnit/L 45-117 CBC W/AUTO [id number] 03:32:00* Test Item Value Reference Range Interpretation Comments WHITE BLOOD CELL (test code = WBC) 4.5 K/mm3 4.5-12.5 N RED BLOOD CELL (test code = RBC) 3.26 mill/mm3 4.0-5.8 L HEMOGLOBIN (test code = HGB) 11.0 gram/dL 13.0-17.5 L HEMATOCRIT (test code = HCT) 31.1 % 42.0-52.0 L MEAN CELL VOLUME (test code = MCV) 95.4 fL 80-98 N MEAN CELL HGB (test code = MCH) 33.7 picogram 27.0-33.0 H MEAN CELL HGB CONCETRATION (test code = MCHC) 35.4 gram/dL 33.0-36. 0 N RED CELL DISTRIBUTION WIDTH (test code = RDW) 13.5 % 11.6-16. 2 N RED CELL DISTRIBUTION WIDTH SD (test code = RDW-SD) 47.1 fL 37 .0-51.0 N PLATELET COUNT (test code = PLT) 84 K/mm3 150-450 L MEAN PLATELET VOLUME (test code = MPV) 12.4 fL 6.7-11.0 H NEUTROPHIL % (test code = NT%) 59.7 % 39.0-69.0 N IMMATURE GRANULOCYTE % (test code = IG%) 0.4 % 0.0-5.0 N LYMPHOCYTE % (test code = LY%) 28.0 % 25.0-55.0 N MONOCYTE % (test code = MO%) 8.5 % 0.0-10.0 N EOSINOPHIL % (test code = EO%) 2.7 % 0.0-5.0 N BASOPHIL % (test code = BA%) 0.7 % 0.0-1.0 N NUCLEATED RBC % (test code = NRBC%) 0.0 % 0-0 N NEUTROPHIL # (test code = NT#) 2.66 K/mm3 1.8-7.7 N IMMATURE GRANULOCYTE # (test code = IG#) 0.02 x10 3/uL 0-0.03 N LYMPHOCYTE # (test code = LY#) 1.25 K/mm3 1.0-5.0 N MONOCYTE # (test code = MO#) 0.38 K/mm3 0-0.8 N EOSINOPHIL # (test code = EO#) 0.12 K/mm3 0.0-0.5 N BASOPHIL # (test code = BA#) 0.03 K/mm3 0.0-0.2 N NUCLEATED RBC # (test code = NRBC#) 0.00 K/mm3 0.0-0.1 N MANUAL DIFF REQUIRED (test code = MDIFF) NO, ONLY SCAN NEEDED DIFFERENTIAL [id number] 03:32:00* Test Item Value Reference Range Interpretation Comments STAIN ACCEPTABILITY (test code = STN ACCEPTABLE) CABOT RINGS (test code = CAB) MORPHOLOGY COMMENT (test code = MOC) PLATELET ESTIMATE (test code = PLTEST) PLATELET MORPHOLOGY (test code = PLTMORPH) CBC W/AUTO [id number] 03:32:00* Test Item Value Reference Range Interpretation Comments WHITE BLOOD CELL (test code = WBC) 4.5 K/mm3 4.5-12.5 N RED BLOOD CELL (test code = RBC) 3.26 mill/mm3 4.0-5.8 L HEMOGLOBIN (test code = HGB) 11.0 gram/dL 13.0-17.5 L HEMATOCRIT (test code = HCT) 31.1 % 42.0-52.0 L MEAN CELL VOLUME (test code = MCV) 95.4 fL 80-98 N MEAN CELL HGB (test code = MCH) 33.7 picogram 27.0-33.0 H MEAN CELL HGB CONCETRATION (test code = MCHC) 35.4 gram/dL 33.0-36. 0 N RED CELL DISTRIBUTION WIDTH (test code = RDW) 13.5 % 11.6-16. 2 N RED CELL DISTRIBUTION WIDTH SD (test code = RDW-SD) 47.1 fL 37 .0-51.0 N PLATELET COUNT (test code = PLT) 84 K/mm3 150-450 L MEAN PLATELET VOLUME (test code = MPV) 12.4 fL 6.7-11.0 H NEUTROPHIL % (test code = NT%) 59.7 % 39.0-69.0 N IMMATURE GRANULOCYTE % (test code = IG%) 0.4 % 0.0-5.0 N LYMPHOCYTE % (test code = LY%) 28.0 % 25.0-55.0 N MONOCYTE % (test code = MO%) 8.5 % 0.0-10.0 N EOSINOPHIL % (test code = EO%) 2.7 % 0.0-5.0 N BASOPHIL % (test code = BA%) 0.7 % 0.0-1.0 N NUCLEATED RBC % (test code = NRBC%) 0.0 % 0-0 N NEUTROPHIL # (test code = NT#) 2.66 K/mm3 1.8-7.7 N IMMATURE GRANULOCYTE # (test code = IG#) 0.02 x10 3/uL 0-0.03 N LYMPHOCYTE # (test code = LY#) 1.25 K/mm3 1.0-5.0 N MONOCYTE # (test code = MO#) 0.38 K/mm3 0-0.8 N EOSINOPHIL # (test code = EO#) 0.12 K/mm3 0.0-0.5 N BASOPHIL # (test code = BA#) 0.03 K/mm3 0.0-0.2 N NUCLEATED RBC # (test code = NRBC#) 0.00 K/mm3 0.0-0.1 N MANUAL DIFF REQUIRED (test code = MDIFF) NO, ONLY SCAN NEEDED DIFFERENTIAL [id number] 03:32:00* Test Item Value Reference Range Interpretation Comments STAIN ACCEPTABILITY (test code = STN ACCEPTABLE) CABOT RINGS (test code = CAB) MORPHOLOGY COMMENT (test code = MOC) PLATELET ESTIMATE (test code = PLTEST) PLATELET MORPHOLOGY (test code = PLTMORPH) CBC W/AUTO [id number] 03:32:00* Test Item Value Reference Range Interpretation Comments WHITE BLOOD CELL (test code = WBC) 4.5 K/mm3 4.5-12.5 N RED BLOOD CELL (test code = RBC) 3.26 mill/mm3 4.0-5.8 L HEMOGLOBIN (test code = HGB) 11.0 gram/dL 13.0-17.5 L HEMATOCRIT (test code = HCT) 31.1 % 42.0-52.0 L MEAN CELL VOLUME (test code = MCV) 95.4 fL 80-98 N MEAN CELL HGB (test code = MCH) 33.7 picogram 27.0-33.0 H MEAN CELL HGB CONCETRATION (test code = MCHC) 35.4 gram/dL 33.0-36. 0 N RED CELL DISTRIBUTION WIDTH (test code = RDW) 13.5 % 11.6-16. 2 N RED CELL DISTRIBUTION WIDTH SD (test code = RDW-SD) 47.1 fL 37 .0-51.0 N PLATELET COUNT (test code = PLT) 84 K/mm3 150-450 L MEAN PLATELET VOLUME (test code = MPV) 12.4 fL 6.7-11.0 H NEUTROPHIL % (test code = NT%) 59.7 % 39.0-69.0 N IMMATURE GRANULOCYTE % (test code = IG%) 0.4 % 0.0-5.0 N LYMPHOCYTE % (test code = LY%) 28.0 % 25.0-55.0 N MONOCYTE % (test code = MO%) 8.5 % 0.0-10.0 N EOSINOPHIL % (test code = EO%) 2.7 % 0.0-5.0 N BASOPHIL % (test code = BA%) 0.7 % 0.0-1.0 N NUCLEATED RBC % (test code = NRBC%) 0.0 % 0-0 N NEUTROPHIL # (test code = NT#) 2.66 K/mm3 1.8-7.7 N IMMATURE GRANULOCYTE # (test code = IG#) 0.02 x10 3/uL 0-0.03 N LYMPHOCYTE # (test code = LY#) 1.25 K/mm3 1.0-5.0 N MONOCYTE # (test code = MO#) 0.38 K/mm3 0-0.8 N EOSINOPHIL # (test code = EO#) 0.12 K/mm3 0.0-0.5 N BASOPHIL # (test code = BA#) 0.03 K/mm3 0.0-0.2 N NUCLEATED RBC # (test code = NRBC#) 0.00 K/mm3 0.0-0.1 N MANUAL DIFF REQUIRED (test code = MDIFF) NO, ONLY SCAN NEEDED DIFFERENTIAL [id number] 03:32:00* Test Item Value Reference Range Interpretation Comments STAIN ACCEPTABILITY (test code = STN ACCEPTABLE) MORPHOLOGY COMMENT (test code = MOC) PLATELET ESTIMATE (test code = PLTEST) PLATELET MORPHOLOGY (test code = PLTMORPH) CBC W/AUTO [id number] 03:32:00* Test Item Value Reference Range Interpretation Comments WHITE BLOOD CELL (test code = WBC) 4.5 K/mm3 4.5-12.5 N RED BLOOD CELL (test code = RBC) 3.26 mill/mm3 4.0-5.8 L HEMOGLOBIN (test code = HGB) 11.0 gram/dL 13.0-17.5 L HEMATOCRIT (test code = HCT) 31.1 % 42.0-52.0 L MEAN CELL VOLUME (test code = MCV) 95.4 fL 80-98 N MEAN CELL HGB (test code = MCH) 33.7 picogram 27.0-33.0 H MEAN CELL HGB CONCETRATION (test code = MCHC) 35.4 gram/dL 33.0-36. 0 N RED CELL DISTRIBUTION WIDTH (test code = RDW) 13.5 % 11.6-16. 2 N RED CELL DISTRIBUTION WIDTH SD (test code = RDW-SD) 47.1 fL 37 .0-51.0 N PLATELET COUNT (test code = PLT) 84 K/mm3 150-450 L MEAN PLATELET VOLUME (test code = MPV) 12.4 fL 6.7-11.0 H NEUTROPHIL % (test code = NT%) 59.7 % 39.0-69.0 N IMMATURE GRANULOCYTE % (test code = IG%) 0.4 % 0.0-5.0 N LYMPHOCYTE % (test code = LY%) 28.0 % 25.0-55.0 N MONOCYTE % (test code = MO%) 8.5 % 0.0-10.0 N EOSINOPHIL % (test code = EO%) 2.7 % 0.0-5.0 N BASOPHIL % (test code = BA%) 0.7 % 0.0-1.0 N NUCLEATED RBC % (test code = NRBC%) 0.0 % 0-0 N NEUTROPHIL # (test code = NT#) 2.66 K/mm3 1.8-7.7 N IMMATURE GRANULOCYTE # (test code = IG#) 0.02 x10 3/uL 0-0.03 N LYMPHOCYTE # (test code = LY#) 1.25 K/mm3 1.0-5.0 N MONOCYTE # (test code = MO#) 0.38 K/mm3 0-0.8 N EOSINOPHIL # (test code = EO#) 0.12 K/mm3 0.0-0.5 N BASOPHIL # (test code = BA#) 0.03 K/mm3 0.0-0.2 N NUCLEATED RBC # (test code = NRBC#) 0.00 K/mm3 0.0-0.1 N MANUAL DIFF REQUIRED (test code = MDIFF) NO, ONLY SCAN NEEDED DIFFERENTIAL [id number] 03:32:00* Test Item Value Reference Range Interpretation Comments STAIN ACCEPTABILITY (test code = STN ACCEPTABLE) CABOT RINGS (test code = CAB) MORPHOLOGY COMMENT (test code = MOC) PLATELET ESTIMATE (test code = PLTEST) PLATELET MORPHOLOGY (test code = PLTMORPH) CBC W/AUTO [id number] 03:31:00* Test Item Value Reference Range Interpretation Comments WHITE BLOOD CELL (test code = WBC) 4.5 K/mm3 4.5-12.5 N RED BLOOD CELL (test code = RBC) 3.26 mill/mm3 4.0-5.8 L HEMOGLOBIN (test code = HGB) 11.0 gram/dL 13.0-17.5 L HEMATOCRIT (test code = HCT) 31.1 % 42.0-52.0 L MEAN CELL VOLUME (test code = MCV) 95.4 fL 80-98 N MEAN CELL HGB (test code = MCH) 33.7 picogram 27.0-33.0 H MEAN CELL HGB CONCETRATION (test code = MCHC) 35.4 gram/dL 33.0-36. 0 N RED CELL DISTRIBUTION WIDTH (test code = RDW) 13.5 % 11.6-16. 2 N RED CELL DISTRIBUTION WIDTH SD (test code = RDW-SD) 47.1 fL 37 .0-51.0 N PLATELET COUNT (test code = PLT) 84 K/mm3 150-450 L MEAN PLATELET VOLUME (test code = MPV) 12.4 fL 6.7-11.0 H NEUTROPHIL % (test code = NT%) 59.7 % 39.0-69.0 N IMMATURE GRANULOCYTE % (test code = IG%) 0.4 % 0.0-5.0 N LYMPHOCYTE % (test code = LY%) 28.0 % 25.0-55.0 N MONOCYTE % (test code = MO%) 8.5 % 0.0-10.0 N EOSINOPHIL % (test code = EO%) 2.7 % 0.0-5.0 N BASOPHIL % (test code = BA%) 0.7 % 0.0-1.0 N NUCLEATED RBC % (test code = NRBC%) 0.0 % 0-0 N NEUTROPHIL # (test code = NT#) 2.66 K/mm3 1.8-7.7 N IMMATURE GRANULOCYTE # (test code = IG#) 0.02 x10 3/uL 0-0.03 N LYMPHOCYTE # (test code = LY#) 1.25 K/mm3 1.0-5.0 N MONOCYTE # (test code = MO#) 0.38 K/mm3 0-0.8 N EOSINOPHIL # (test code = EO#) 0.12 K/mm3 0.0-0.5 N BASOPHIL # (test code = BA#) 0.03 K/mm3 0.0-0.2 N NUCLEATED RBC # (test code = NRBC#) 0.00 K/mm3 0.0-0.1 N [id number] 16:39:00* Test Item Value Reference Range Interpretation Comments GLUBED (test code = GLUBED) 115 mg/dL 74-106 H Performed by certified jewel lathe operator at [facility] [id number] 13:28:00* Test Item Value Reference Range Interpretation Comments GLUBED (test code = GLUBED) 115 mg/dL 74-106 H Performed by certified jewel lathe operator at [facility] [id number] 06:36:00* Test Item Value Reference Range Interpretation Comments GLUBED (test code = GLUBED) 79 mg/dL 74-106 N Performed by certified jewel lathe operator at [facility] COMPREHENSIVE METABOLIC [id number] 03:30:00* Test Item Value Reference Range Interpretation Comments SODIUM (test code = NA) 138 mmol/L 136-145 N POTASSIUM (test code = K) 4.0 mmol/L 3.5-5.1 N CHLORIDE (test code = CL) 102.0 mmol/L 98-107 N CARBON DIOXIDE (test code = CO2) 25.0 mmol/L 21-32 N ANION GAP (test code = GAP) 15.0 10-20 N GLUCOSE (test code = GLU) 89 mg/dL 74-106 N BLOOD UREA NITROGEN (test code = BUN) 27 mg/dL 7-18 H RESULT VERIFIED BY REPEAT ANALYSIS GLOMERULAR FILTRATION RATE (test code = GFR) > 60 mL/min >=60 Estimated GFR by using Modified MDRD formula.Chronic kidney disease is defined as either kidney damageor GFR <60 mL/min/1.73 m2 for >3 months. CREATININE (test code = CREAT) 0.70 mg/dL 0.7-1.3 N BUN/CREATININE RATIO (test code = BUN/CREA) 38.6 10-20 H TOTAL PROTEIN (test code = PROT) 6.4 gram/dL 6.4-8.2 N ALBUMIN (test code = ALB) 3.6 g/dL 3.4-5.0 N GLOBULIN (test code = GLOB) 2.8 gram/dL 2.7-4.2 N ALBUMIN/GLOBULIN RATIO (test code = A/G) 1.3 0.75-1.50 N CALCIUM (test code = CA) 8.3 mg/dL 8.5-10.1 L BILIRUBIN TOTAL (test code = BILT) 2.00 mg/dL 0.0-1.0 H SGOT/AST (test code = AST) 206 IUnit/L 15-37 H SGPT/ALT (test code = ALT) 98 IUnit/L 12-78 H ALKALINE PHOSPHATASE TOTAL (test code = ALKP) 53 IUnit/L 45-117 N Note change in reference range due to change in reagent. CBC W/AUTO [id number] 03:26:00* Test Item Value Reference Range Interpretation Comments WHITE BLOOD CELL (test code = WBC) 4.7 K/mm3 4.5-12.5 N RED BLOOD CELL (test code = RBC) 3.39 mill/mm3 4.0-5.8 L HEMOGLOBIN (test code = HGB) 11.2 gram/dL 13.0-17.5 L HEMATOCRIT (test code = HCT) 32.4 % 42.0-52.0 L MEAN CELL VOLUME (test code = MCV) 95.6 fL 80-98 N MEAN CELL HGB (test code = MCH) 33.0 picogram 27.0-33.0 N MEAN CELL HGB CONCETRATION (test code = MCHC) 34.6 gram/dL 33.0-36. 0 N RED CELL DISTRIBUTION WIDTH (test code = RDW) 13.9 % 11.6-16. 2 N RED CELL DISTRIBUTION WIDTH SD (test code = RDW-SD) 48.9 fL 37 .0-51.0 N PLATELET COUNT (test code = PLT) 77 K/mm3 150-450 L MEAN PLATELET VOLUME (test code = MPV) 12.3 fL 6.7-11.0 H NEUTROPHIL % (test code = NT%) 61.3 % 39.0-69.0 N IMMATURE GRANULOCYTE % (test code = IG%) 0.6 % 0.0-5.0 N LYMPHOCYTE % (test code = LY%) 25.9 % 25.0-55.0 N MONOCYTE % (test code = MO%) 10.7 % 0.0-10.0 H EOSINOPHIL % (test code = EO%) 1.3 % 0.0-5.0 N BASOPHIL % (test code = BA%) 0.2 % 0.0-1.0 N NUCLEATED RBC % (test code = NRBC%) 0.0 % 0-0 N NEUTROPHIL # (test code = NT#) 2.86 K/mm3 1.8-7.7 N IMMATURE GRANULOCYTE # (test code = IG#) 0.03 x10 3/uL 0-0.03 N LYMPHOCYTE # (test code = LY#) 1.21 K/mm3 1.0-5.0 N MONOCYTE # (test code = MO#) 0.50 K/mm3 0-0.8 N EOSINOPHIL # (test code = EO#) 0.06 K/mm3 0.0-0.5 N BASOPHIL # (test code = BA#) 0.01 K/mm3 0.0-0.2 N NUCLEATED RBC # (test code = NRBC#) 0.00 K/mm3 0.0-0.1 N MANUAL DIFF REQUIRED (test code = MDIFF) NO, ONLY SCAN NEEDED DIFFERENTIAL [id number] 03:26:00* Test Item Value Reference Range Interpretation Comments STAIN ACCEPTABILITY (test code = STN ACCEPTABLE) STAIN ACCEPTABLE POIKILOCYTOSIS (test code = POIK) 1+ ANISOCYTOSIS (test code = ANISO) 2+ MACROCYTOSIS (test code = MACR) 2+ TARGET CELLS (test code = TGT) 1+ PLATELET ESTIMATE (test code = PLTEST) DECREASED PLATELET MORPHOLOGY (test code = PLTMORPH) NORMAL COMPREHENSIVE METABOLIC [id number] 03:13:00* Test Item Value Reference Range Interpretation Comments SODIUM (test code = NA) 138 mmol/L 136-145 N POTASSIUM (test code = K) 4.0 mmol/L 3.5-5.1 N CHLORIDE (test code = CL) 102.0 mmol/L 98-107 N CARBON DIOXIDE (test code = CO2) mmol/L 21-32 ANION GAP (test code = GAP) 10-20 GLUCOSE (test code = GLU) mg/dL 74-106 BLOOD UREA NITROGEN (test code = BUN) mg/dL 7-18 GLOMERULAR FILTRATION RATE (test code = GFR) mL/min >=60 CREATININE (test code = CREAT) mg/dL 0.7-1.3 BUN/CREATININE RATIO (test code = BUN/CREA) 10-20 TOTAL PROTEIN (test code = PROT) gram/dL 6.4-8.2 ALBUMIN (test code = ALB) g/dL 3.4-5.0 GLOBULIN (test code = GLOB) gram/dL 2.7-4.2 ALBUMIN/GLOBULIN RATIO (test code = A/G) 0.75-1.50 CALCIUM (test code = CA) mg/dL 8.5-10.1 BILIRUBIN TOTAL (test code = BILT) mg/dL 0.0-1.0 SGOT/AST (test code = AST) IUnit/L 15-37 SGPT/ALT (test code = ALT) IUnit/L 12-78 ALKALINE PHOSPHATASE TOTAL (test code = ALKP) IUnit/L 45-117 [id number] 03:13:00* Test Item Value Reference Range Interpretation Comments AMMONIA (test code = AMM) 42 umol/L 11-32 H CBC W/AUTO [id number] 02:54:00* Test Item Value Reference Range Interpretation Comments WHITE BLOOD CELL (test code = WBC) 4.7 K/mm3 4.5-12.5 N RED BLOOD CELL (test code = RBC) 3.39 mill/mm3 4.0-5.8 L HEMOGLOBIN (test code = HGB) 11.2 gram/dL 13.0-17.5 L HEMATOCRIT (test code = HCT) 32.4 % 42.0-52.0 L MEAN CELL VOLUME (test code = MCV) 95.6 fL 80-98 N MEAN CELL HGB (test code = MCH) 33.0 picogram 27.0-33.0 N MEAN CELL HGB CONCETRATION (test code = MCHC) 34.6 gram/dL 33.0-36. 0 N RED CELL DISTRIBUTION WIDTH (test code = RDW) 13.9 % 11.6-16. 2 N RED CELL DISTRIBUTION WIDTH SD (test code = RDW-SD) 48.9 fL 37 .0-51.0 N PLATELET COUNT (test code = PLT) 77 K/mm3 150-450 L MEAN PLATELET VOLUME (test code = MPV) 12.3 fL 6.7-11.0 H NEUTROPHIL % (test code = NT%) 61.3 % 39.0-69.0 N IMMATURE GRANULOCYTE % (test code = IG%) 0.6 % 0.0-5.0 N LYMPHOCYTE % (test code = LY%) 25.9 % 25.0-55.0 N MONOCYTE % (test code = MO%) 10.7 % 0.0-10.0 H EOSINOPHIL % (test code = EO%) 1.3 % 0.0-5.0 N BASOPHIL % (test code = BA%) 0.2 % 0.0-1.0 N NUCLEATED RBC % (test code = NRBC%) 0.0 % 0-0 N NEUTROPHIL # (test code = NT#) 2.86 K/mm3 1.8-7.7 N IMMATURE GRANULOCYTE # (test code = IG#) 0.03 x10 3/uL 0-0.03 N LYMPHOCYTE # (test code = LY#) 1.21 K/mm3 1.0-5.0 N MONOCYTE # (test code = MO#) 0.50 K/mm3 0-0.8 N EOSINOPHIL # (test code = EO#) 0.06 K/mm3 0.0-0.5 N BASOPHIL # (test code = BA#) 0.01 K/mm3 0.0-0.2 N NUCLEATED RBC # (test code = NRBC#) 0.00 K/mm3 0.0-0.1 N MANUAL DIFF REQUIRED (test code = MDIFF) NO, ONLY SCAN NEEDED DIFFERENTIAL [id number] 02:54:00* Test Item Value Reference Range Interpretation Comments STAIN ACCEPTABILITY (test code = STN ACCEPTABLE) CABOT RINGS (test code = CAB) MORPHOLOGY COMMENT (test code = MOC) PLATELET ESTIMATE (test code = PLTEST) PLATELET MORPHOLOGY (test code = PLTMORPH) CBC W/AUTO [id number] 02:54:00* Test Item Value Reference Range Interpretation Comments WHITE BLOOD CELL (test code = WBC) 4.7 K/mm3 4.5-12.5 N RED BLOOD CELL (test code = RBC) 3.39 mill/mm3 4.0-5.8 L HEMOGLOBIN (test code = HGB) 11.2 gram/dL 13.0-17.5 L HEMATOCRIT (test code = HCT) 32.4 % 42.0-52.0 L MEAN CELL VOLUME (test code = MCV) 95.6 fL 80-98 N MEAN CELL HGB (test code = MCH) 33.0 picogram 27.0-33.0 N MEAN CELL HGB CONCETRATION (test code = MCHC) 34.6 gram/dL 33.0-36. 0 N RED CELL DISTRIBUTION WIDTH (test code = RDW) 13.9 % 11.6-16. 2 N RED CELL DISTRIBUTION WIDTH SD (test code = RDW-SD) 48.9 fL 37 .0-51.0 N PLATELET COUNT (test code = PLT) 77 K/mm3 150-450 L MEAN PLATELET VOLUME (test code = MPV) 12.3 fL 6.7-11.0 H NEUTROPHIL % (test code = NT%) 61.3 % 39.0-69.0 N IMMATURE GRANULOCYTE % (test code = IG%) 0.6 % 0.0-5.0 N LYMPHOCYTE % (test code = LY%) 25.9 % 25.0-55.0 N MONOCYTE % (test code = MO%) 10.7 % 0.0-10.0 H EOSINOPHIL % (test code = EO%) 1.3 % 0.0-5.0 N BASOPHIL % (test code = BA%) 0.2 % 0.0-1.0 N NUCLEATED RBC % (test code = NRBC%) 0.0 % 0-0 N NEUTROPHIL # (test code = NT#) 2.86 K/mm3 1.8-7.7 N IMMATURE GRANULOCYTE # (test code = IG#) 0.03 x10 3/uL 0-0.03 N LYMPHOCYTE # (test code = LY#) 1.21 K/mm3 1.0-5.0 N MONOCYTE # (test code = MO#) 0.50 K/mm3 0-0.8 N EOSINOPHIL # (test code = EO#) 0.06 K/mm3 0.0-0.5 N BASOPHIL # (test code = BA#) 0.01 K/mm3 0.0-0.2 N NUCLEATED RBC # (test code = NRBC#) 0.00 K/mm3 0.0-0.1 N MANUAL DIFF REQUIRED (test code = MDIFF) NO, ONLY SCAN NEEDED DIFFERENTIAL [id number] 02:54:00* Test Item Value Reference Range Interpretation Comments STAIN ACCEPTABILITY (test code = STN ACCEPTABLE) CABOT RINGS (test code = CAB) MORPHOLOGY COMMENT (test code = MOC) PLATELET ESTIMATE (test code = PLTEST) PLATELET MORPHOLOGY (test code = PLTMORPH) CBC W/AUTO [id number] 02:54:00* Test Item Value Reference Range Interpretation Comments WHITE BLOOD CELL (test code = WBC) 4.7 K/mm3 4.5-12.5 N RED BLOOD CELL (test code = RBC) 3.39 mill/mm3 4.0-5.8 L HEMOGLOBIN (test code = HGB) 11.2 gram/dL 13.0-17.5 L HEMATOCRIT (test code = HCT) 32.4 % 42.0-52.0 L MEAN CELL VOLUME (test code = MCV) 95.6 fL 80-98 N MEAN CELL HGB (test code = MCH) 33.0 picogram 27.0-33.0 N MEAN CELL HGB CONCETRATION (test code = MCHC) 34.6 gram/dL 33.0-36. 0 N RED CELL DISTRIBUTION WIDTH (test code = RDW) 13.9 % 11.6-16. 2 N RED CELL DISTRIBUTION WIDTH SD (test code = RDW-SD) 48.9 fL 37 .0-51.0 N PLATELET COUNT (test code = PLT) 77 K/mm3 150-450 L MEAN PLATELET VOLUME (test code = MPV) 12.3 fL 6.7-11.0 H NEUTROPHIL % (test code = NT%) 61.3 % 39.0-69.0 N IMMATURE GRANULOCYTE % (test code = IG%) 0.6 % 0.0-5.0 N LYMPHOCYTE % (test code = LY%) 25.9 % 25.0-55.0 N MONOCYTE % (test code = MO%) 10.7 % 0.0-10.0 H EOSINOPHIL % (test code = EO%) 1.3 % 0.0-5.0 N BASOPHIL % (test code = BA%) 0.2 % 0.0-1.0 N NUCLEATED RBC % (test code = NRBC%) 0.0 % 0-0 N NEUTROPHIL # (test code = NT#) 2.86 K/mm3 1.8-7.7 N IMMATURE GRANULOCYTE # (test code = IG#) 0.03 x10 3/uL 0-0.03 N LYMPHOCYTE # (test code = LY#) 1.21 K/mm3 1.0-5.0 N MONOCYTE # (test code = MO#) 0.50 K/mm3 0-0.8 N EOSINOPHIL # (test code = EO#) 0.06 K/mm3 0.0-0.5 N BASOPHIL # (test code = BA#) 0.01 K/mm3 0.0-0.2 N NUCLEATED RBC # (test code = NRBC#) 0.00 K/mm3 0.0-0.1 N MANUAL DIFF REQUIRED (test code = MDIFF) NO, ONLY SCAN NEEDED DIFFERENTIAL [id number] 02:54:00* Test Item Value Reference Range Interpretation Comments STAIN ACCEPTABILITY (test code = STN ACCEPTABLE) MORPHOLOGY COMMENT (test code = MOC) PLATELET ESTIMATE (test code = PLTEST) PLATELET MORPHOLOGY (test code = PLTMORPH) CBC W/AUTO [id number] 02:54:00* Test Item Value Reference Range Interpretation Comments WHITE BLOOD CELL (test code = WBC) 4.7 K/mm3 4.5-12.5 N RED BLOOD CELL (test code = RBC) 3.39 mill/mm3 4.0-5.8 L HEMOGLOBIN (test code = HGB) 11.2 gram/dL 13.0-17.5 L HEMATOCRIT (test code = HCT) 32.4 % 42.0-52.0 L MEAN CELL VOLUME (test code = MCV) 95.6 fL 80-98 N MEAN CELL HGB (test code = MCH) 33.0 picogram 27.0-33.0 N MEAN CELL HGB CONCETRATION (test code = MCHC) 34.6 gram/dL 33.0-36. 0 N RED CELL DISTRIBUTION WIDTH (test code = RDW) 13.9 % 11.6-16. 2 N RED CELL DISTRIBUTION WIDTH SD (test code = RDW-SD) 48.9 fL 37 .0-51.0 N PLATELET COUNT (test code = PLT) 77 K/mm3 150-450 L MEAN PLATELET VOLUME (test code = MPV) 12.3 fL 6.7-11.0 H NEUTROPHIL % (test code = NT%) 61.3 % 39.0-69.0 N IMMATURE GRANULOCYTE % (test code = IG%) 0.6 % 0.0-5.0 N LYMPHOCYTE % (test code = LY%) 25.9 % 25.0-55.0 N MONOCYTE % (test code = MO%) 10.7 % 0.0-10.0 H EOSINOPHIL % (test code = EO%) 1.3 % 0.0-5.0 N BASOPHIL % (test code = BA%) 0.2 % 0.0-1.0 N NUCLEATED RBC % (test code = NRBC%) 0.0 % 0-0 N NEUTROPHIL # (test code = NT#) 2.86 K/mm3 1.8-7.7 N IMMATURE GRANULOCYTE # (test code = IG#) 0.03 x10 3/uL 0-0.03 N LYMPHOCYTE # (test code = LY#) 1.21 K/mm3 1.0-5.0 N MONOCYTE # (test code = MO#) 0.50 K/mm3 0-0.8 N EOSINOPHIL # (test code = EO#) 0.06 K/mm3 0.0-0.5 N BASOPHIL # (test code = BA#) 0.01 K/mm3 0.0-0.2 N NUCLEATED RBC # (test code = NRBC#) 0.00 K/mm3 0.0-0.1 N MANUAL DIFF REQUIRED (test code = MDIFF) NO, ONLY SCAN NEEDED DIFFERENTIAL [id number] 02:54:00* Test Item Value Reference Range Interpretation Comments STAIN ACCEPTABILITY (test code = STN ACCEPTABLE) CABOT RINGS (test code = CAB) MORPHOLOGY COMMENT (test code = MOC) PLATELET ESTIMATE (test code = PLTEST) PLATELET MORPHOLOGY (test code = PLTMORPH) [id number] 21:15:00* Test Item Value Reference Range Interpretation Comments GLUBED (test code = GLUBED) 105 mg/dL 74-106 N Performed by certified jewel lathe operator at [facility] - CT HEAD/BRAIN W/O [id number] 20:21:00 Name: LOLA ORTEGA [facility] : 1955 Age/S: 64 / M [address] [facility] Unit #: [id number] Loc: [place] [address] Phys: Francisco Jensen II, MD Acct: [id number] Dis Date: Status: ADM IN PHONE #: [phone] Exam Date: 03/14/20192015 FAX #: [phone] Reason: s/p seizure, AMS EXAMS: CPT CODE: [id number] CT HEAD/BRAIN W/O CONT 16039 HISTORY: s/p seizure, AMS TECHNIQUE: Noncontrast 2.5 [...] signed by: Jordan Mathew MD CC: Jann Bhagat Roy II MD Technologist:Rach Sanchez,RT(R),CT CTDI: DLP: Trnscb Date/Time: 03/14/2019 (2020) [email or web address] Orig Print D/T: S: 03/14/2019 (2024) PAGE 1 Signed Report [id number] 19:16:00* Test Item Value Reference Range Interpretation Comments PHOSPHORUS (test code = PHOS) 1.8 mg/dL 2.5-4.9 L [id number] 19:16:00* Test Item Value Reference Range Interpretation Comments MAGNESIUM (test code = MAG) 1.3 mg/dL 1.8-2.4 L VITAMIN [id number] 19:16:00* Test Item Value Reference Range Interpretation Comments VITAMIN B12 (test code = VITB12) 1192 pg/mL 193-986 H [id number] 18:46:00* Test Item Value Reference Range Interpretation Comments PHOSPHORUS (test code = PHOS) mg/dL 2.5-4.9 [id number] 18:46:00* Test Item Value Reference Range Interpretation Comments MAGNESIUM (test code = MAG) 1.3 mg/dL 1.8-2.4 L VITAMIN [id number] 18:46:00* Test Item Value Reference Range Interpretation Comments VITAMIN B12 (test code = VITB12) pg/mL 193-986 [id number] 14:21:00* Test Item Value Reference Range Interpretation Comments PHOSPHORUS (test code = PHOS) 1.4 mg/dL 2.5-4.9 L [id number] 14:21:00* Test Item Value Reference Range Interpretation Comments AMYLASE (test code = IRENE) 35 Unit/L 25-115 N [id number] 14:21:00* Test Item Value Reference Range Interpretation Comments MAGNESIUM (test code = MAG) 1.1 mg/dL 1.8-2.4 L VITAMIN [id number] 14:21:00* Test Item Value Reference Range Interpretation Comments VITAMIN B12 (test code = VITB12) 1209 pg/mL 193-986 H FOLIC [id number] 14:21:00* Test Item Value Reference Range Interpretation Comments FOLIC ACID (test code = FOL) 7.8 ng/mL 3.10-17.50 N PROTHROMBIN [id number] 13:43:00* Test Item Value Reference Range Interpretation Comments PROTHROMBIN TIME PATIENT (test code = PTP) 10.3 seconds 9.0-14.0 N INTERNATIONAL NORMAL RATIO (test code = INR) 0.9 0.8-1.2 N The therapeutic range for oral anticoagulant therapy [...] (2.5-3.5) IS PATIENT ON ANTICOAGULANTS? NTHROMBOPLASTIN TIME [id number] 13:43:00* Test Item Value Reference Range Interpretation Comments THROMBOPLASTIN TIME PARTIAL (test code = PTT) 28.3 seconds 25.0-36. 5 N IS PATIENT ON ANTICOAGULANTS? NCBC W/O [id number] 12:35:00* Test Item Value Reference Range Interpretation Comments WHITE BLOOD CELL (test code = WBC) 6.8 K/mm3 4.5-12.5 N RED BLOOD CELL (test code = RBC) 3.53 mill/mm3 4.0-5.8 L HEMOGLOBIN (test code = HGB) 11.8 gram/dL 13.0-17.5 L HEMATOCRIT (test code = HCT) 33.5 % 42.0-52.0 L MEAN CELL VOLUME (test code = MCV) 94.9 fL 80-98 N MEAN CELL HGB (test code = MCH) 33.4 picogram 27.0-33.0 H MEAN CELL HGB CONCETRATION (test code = MCHC) 35.2 gram/dL 33.0-36. 0 N RED CELL DISTRIBUTION WIDTH (test code = RDW) 13.9 % 11.6-16. 2 N PLATELET COUNT (test code = PLT) 88 K/mm3 150-450 L MEAN PLATELET VOLUME (test code = MPV) 12.0 fL 6.7-11.0 H DRUGS OF ABUSE SCREEN [id number] 12:34:00* Test Item Value Reference Range Interpretation Comments UA PH DIPSTICK (test code = LAMONT) 6.0 5.0-8.0 URN COCAINE (test code = COCAURN) NEGATIVE <300 ng/mL URN CANNABINOIDS (test code = CANNABURN) NEGATIVE <50 ng/mL URN AMPHETAMINE (test code = AMPHETURN) NEGATIVE <1000 ng/mL URN BARBITURATE (test code = BARBITURN) NEGATIVE <200 ng/mL URN BENZODIAZEPINE (test code = BENZOURN) NEGATIVE <200 ng/mL URN OPIATES (test code = OPIATURN) NEGATIVE <300 ng/mL URN PHENCYCLIDINE (PCP) (test code = PHENCURN) NEGATIVE <25 ng/ mL URN METHADONE (test code = METHAURN) NEGATIVE <300 ng/mL [id number] 12:34:00* Test Item Value Reference Range Interpretation Comments ALCOHOL (test code = ALC) < 3 mg/dL 0.0-3.0 N -- INTERPRETIVE DATA NOTE: POSITIVE SCREENING RESULTS SHOULD BE CONSIDERED PRESUMPTIVE.WHEN COLLECTED FOR MEDICAL PURPOSES ONLY. SPECIMEN WILL NOTBE COLLECTED BY CHAIN OF CUSTODY.IF A CONFIRMATION OF POSITIVE RESULTS IS DESIRED, ACONFIRMATION TEST MUST BE REQUESTED BY THE PHYSICIAN AT ANADDITIONAL CHARGE TO THE PATIENT. [id number] 12:30:00* Test Item Value Reference Range Interpretation Comments AMMONIA (test code = AMM) 68 umol/L 11-32 H URINALYSIS [id number] 12:19:00* Test Item Value Reference Range Interpretation Comments UA COLOR (test code = COLU) Light-Dragoon YELLOW UA APPEARANCE (test code = APPU) Cloudy CLEAR A UA GLUCOSE DIPSTICK (test code = DGLUU) NEGATIVE mg/dL NEGATIVE UA BILIRUBIN DIPSTICK (test code = BILU) 0.5 (1+) mg/dL NEGATIVE A UA KETONE DIPSTICK (test code = KETU) 40 (2+) mg/dL NEGATIVE A UA SPECIFIC GRAVITY (test code = SGU) 1.028 1.001-1.035 UA BLOOD DIPSTICK (test code = NESTOR) 0.1 mg/dL (1+) mg/dL NEGATIVE A UA PH DIPSTICK (test code = LAMONT) 6.0 5.0-8.0 UA PROTEIN DIPSTICK (test code = PROU) 100 (2+) mg/dL NEGATIVE A UA UROBILINIOGEN DIPSTICK (test code = URO) 4.0 (2+) mg/dL NEGATIVE A UA NITRITE DIPSTICK (test code = TE) NEGATIVE NEGATIVE UA LEUKOCYTE ESTERASE W REFLEX (test code = LEUUR) NEGATIVE Nilson/uL NEGATIVE UA WBC (test code = WBCU) 0-5 per HPF 0-5 UA RBC (test code = RBCU) 0-2 #/HPF 0-5 UA EPITHELIAL CELLS (test code = EPIU) FEW per HPF FEW UA BACTERIA (test code = BACU) FEW #/HPF NONE A UA HYALINE CAST (test code = HYALU) 3-5 #/LPF 0-5 UA MUCUS (test code = MUCU) FEW #/LPF FEW Urine Source? Clean CatchDRUGS OF ABUSE SCREEN [id number] 12:19:00* Test Item Value Reference Range Interpretation Comments UA PH DIPSTICK (test code = LAMONT) 6.0 5.0-8.0 URN COCAINE (test code = COCAURN) <300 ng/mL URN CANNABINOIDS (test code = CANNABURN) <50 ng/mL URN AMPHETAMINE (test code = AMPHETURN) <1000 ng/mL URN BARBITURATE (test code = BARBITURN) <200 ng/mL URN BENZODIAZEPINE (test code = BENZOURN) <200 ng/mL URN OPIATES (test code = OPIATURN) <300 ng/mL URN PHENCYCLIDINE (PCP) (test code = PHENCURN) <25 ng/ mL URN METHADONE (test code = METHAURN) <300 ng/mL BASIC METABOLIC [id number] 11:51:00* Test Item Value Reference Range Interpretation Comments SODIUM (test code = NA) 136 mmol/L 136-145 N POTASSIUM (test code = K) 4.0 mmol/L 3.5-5.1 N CHLORIDE (test code = CL) 95.0 mmol/L 98-107 L CARBON DIOXIDE (test code = CO2) 25.0 mmol/L 21-32 N ANION GAP (test code = GAP) 20.0 10-20 N GLUCOSE (test code = GLU) 151 mg/dL 74-106 H BLOOD UREA NITROGEN (test code = BUN) 37 mg/dL 7-18 H GLOMERULAR FILTRATION RATE (test code = GFR) 56 mL/min >=60 Estimated GFR by using Modified MDRD formula.Chronic kidney disease is defined as either kidney damageor GFR <60 mL/min/1.73 m2 for >3 months. CREATININE (test code = CREAT) 1.30 mg/dL 0.7-1.3 N BUN/CREATININE RATIO (test code = BUN/CREA) 28.5 10-20 H CALCIUM (test code = CA) 8.9 mg/dL 8.5-10.1 N HEPATIC FUNCTION [id number] 11:51:00* Test Item Value Reference Range Interpretation Comments TOTAL PROTEIN (test code = PROT) 7.3 gram/dL 6.4-8.2 N ALBUMIN (test code = ALB) 4.5 g/dL 3.4-5.0 N GLOBULIN (test code = GLOB) 2.8 gram/dL 2.7-4.2 N ALBUMIN/GLOBULIN RATIO (test code = A/G) 1.6 0.75-1.50 H BILIRUBIN TOTAL (test code = BILT) 2.70 mg/dL 0.0-1.0 H BILIRUBIN DIRECT (test code = BILD) 0.79 mg/dL 0.0-0.20 H SGOT/AST (test code = AST) 257 IUnit/L 15-37 H SGPT/ALT (test code = ALT) 117 IUnit/L 12-78 H ALKALINE PHOSPHATASE TOTAL (test code = ALKP) 66 IUnit/L 45-117 N Note change in reference range due to change in reagent. [id number] 11:51:00* Test Item Value Reference Range Interpretation Comments LIPASE (test code = LIP) 312 U/L 73.0-393.0 N BASIC METABOLIC [id number] 11:46:00* Test Item Value Reference Range Interpretation Comments SODIUM (test code = NA) 136 mmol/L 136-145 N POTASSIUM (test code = K) 4.0 mmol/L 3.5-5.1 N CHLORIDE (test code = CL) 95.0 mmol/L 98-107 L CARBON DIOXIDE (test code = CO2) mmol/L 21-32 ANION GAP (test code = GAP) 10-20 GLUCOSE (test code = GLU) mg/dL 74-106 BLOOD UREA NITROGEN (test code = BUN) mg/dL 7-18 GLOMERULAR FILTRATION RATE (test code = GFR) mL/min >=60 CREATININE (test code = CREAT) mg/dL 0.7-1.3 BUN/CREATININE RATIO (test code = BUN/CREA) 10-20 CALCIUM (test code = CA) mg/dL 8.5-10.1 HEPATIC FUNCTION [id number] 11:46:00* Test Item Value Reference Range Interpretation Comments TOTAL PROTEIN (test code = PROT) gram/dL 6.4-8.2 ALBUMIN (test code = ALB) g/dL 3.4-5.0 GLOBULIN (test code = GLOB) gram/dL 2.7-4.2 ALBUMIN/GLOBULIN RATIO (test code = A/G) 0.75-1.50 BILIRUBIN TOTAL (test code = BILT) mg/dL 0.0-1.0 BILIRUBIN DIRECT (test code = BILD) mg/dL 0.0-0.20 SGOT/AST (test code = AST) IUnit/L 15-37 SGPT/ALT (test code = ALT) IUnit/L 12-78 ALKALINE PHOSPHATASE TOTAL (test code = ALKP) IUnit/L 45-117 [id number] 11:46:00* Test Item Value Reference Range Interpretation Comments LIPASE (test code = LIP) U/L 73.0-393.0 [U] XRAY FEMUR 2 VWS LEFT [id number] 11:18:00Images acquired, not reported on this accession number.[facility][U] XRAY TIBIA FIBULA 2 VWS LEFT [id number] 11:18:00Images acquired, not reported on this accession number.[facility][U] XRAY PELVIS MIN 3 VWS [id number] 10:52:00Images acquired, not reported on this accession number.[facility]icians[facility]IN[facility] [id number] 12:55:00* Test Item Value Reference Range Interpretation Comments UA COLOR (test code = COLU) YELLOW YELLOW UA APPEARANCE (test code = APPU) CLEAR CLEAR UA GLUCOSE DIPSTICK (test code = DGLUU) NEGATIVE mg/dL NEGATIVE UA BILIRUBIN DIPSTICK (test code = BILU) NEGATIVE mg/dL NEGATIVE UA KETONE DIPSTICK (test code = KETU) TRACE mg/dL NEGATIVE A UA SPECIFIC GRAVITY (test code = SGU) 1.022 1.001-1.035 UA BLOOD DIPSTICK (test code = NESTOR) Negative mg/dL NEGATIVE UA PH DIPSTICK (test code = LAMONT) 7.0 5.0-8.0 UA PROTEIN DIPSTICK (test code = PROU) NEGATIVE mg/dL NEGATIVE UA UROBILINIOGEN DIPSTICK (test code = URO) 3.0 (1+) mg/dL NEGATIVE A UA NITRITE DIPSTICK (test code = TE) NEGATIVE NEGATIVE UA LEUKOCYTE ESTERASE W REFLEX (test code = LEUUR) NEGATIVE Nilson/uL NEGATIVE UA WBC (test code = WBCU) 0-5 per HPF 0-5 UA RBC (test code = RBCU) 0-2 #/HPF 0-5 UA EPITHELIAL CELLS (test code = EPIU) None seen per HPF Few UA BACTERIA (test code = BACU) TRACE per HPF NONE Urine Source? VoidedURINALYSIS [id number] 12:42:00* Test Item Value Reference Range Interpretation Comments UA COLOR (test code = COLU) YELLOW YELLOW UA APPEARANCE (test code = APPU) CLEAR CLEAR UA GLUCOSE DIPSTICK (test code = DGLUU) NEGATIVE mg/dL NEGATIVE UA BILIRUBIN DIPSTICK (test code = BILU) NEGATIVE mg/dL NEGATIVE UA KETONE DIPSTICK (test code = KETU) TRACE mg/dL NEGATIVE A UA SPECIFIC GRAVITY (test code = SGU) 1.022 1.001-1.035 UA BLOOD DIPSTICK (test code = NESTOR) Negative mg/dL NEGATIVE UA PH DIPSTICK (test code = LAMONT) 7.0 5.0-8.0 UA PROTEIN DIPSTICK (test code = PROU) NEGATIVE mg/dL NEGATIVE UA UROBILINIOGEN DIPSTICK (test code = URO) 3.0 (1+) mg/dL NEGATIVE A UA NITRITE DIPSTICK (test code = TE) NEGATIVE NEGATIVE UA LEUKOCYTE ESTERASE W REFLEX (test code = LEUUR) NEGATIVE Nilson/uL NEGATIVE UA WBC (test code = WBCU) 0-5 per HPF 0-5 UA RBC (test code = RBCU) 0-2 #/HPF 0-5 UA EPITHELIAL CELLS (test code = EPIU) per HPF Few UA BACTERIA (test code = BACU) per HPF NONE Urine Source? [id number] 15:09:00* Test Item Value Reference Range Interpretation Comments MAGNESIUM (test code = MAG) 1.9 mg/dL 1.8-2.4 N QNS.GIVEN TO PHLEB FOR REDRAW.BASIC METABOLIC [id number] 14:22:00* Test Item Value Reference Range Interpretation Comments SODIUM (test code = NA) 136 mmol/L 136-145 N POTASSIUM (test code = K) 4.4 mmol/L 3.5-5.1 N CHLORIDE (test code = CL) 103.0 mmol/L 98-107 N CARBON DIOXIDE (test code = CO2) 18.0 mmol/L 21-32 L ANION GAP (test code = GAP) 19.4 10-20 N GLUCOSE (test code = GLU) 83 mg/dL 74-106 N BLOOD UREA NITROGEN (test code = BUN) 26 mg/dL 7-18 H GLOMERULAR FILTRATION RATE (test code = GFR) > 60 mL/min >=60 Estimated GFR by using Modified MDRD formula.Chronic kidney disease is defined as either kidney damageor GFR <60 mL/min/1.73 m2 for >3 months. CREATININE (test code = CREAT) 0.70 mg/dL 0.7-1.3 N BUN/CREATININE RATIO (test code = BUN/CREA) 37.1 10-20 H CALCIUM (test code = CA) 8.7 mg/dL 8.5-10.1 N CBC W/O [id number] 13:03:00* Test Item Value Reference Range Interpretation Comments WHITE BLOOD CELL (test code = WBC) 12.5 K/mm3 4.5-12.5 N RED BLOOD CELL (test code = RBC) 4.54 mill/mm3 4.0-5.8 N HEMOGLOBIN (test code = HGB) 14.2 gram/dL 13.0-17.5 N HEMATOCRIT (test code = HCT) 40.9 % 42.0-52.0 L MEAN CELL VOLUME (test code = MCV) 90.1 fL 80-98 N MEAN CELL HGB (test code = MCH) 31.3 picogram 27.0-33.0 N MEAN CELL HGB CONCETRATION (test code = MCHC) 34.7 gram/dL 33.0-36. 0 N RED CELL DISTRIBUTION WIDTH (test code = RDW) 15.2 % 11.6-16. 2 N PLATELET COUNT (test code = PLT) 187 K/mm3 150-450 N MEAN PLATELET VOLUME (test code = MPV) 11.3 fL 6.7-11.0 H - CT HEAD/BRAIN W/O [id number] 11:42:00 Name: LOLA ORTEGA [facility] : 1955 Age/S: 63 / M [address] [facility] Unit #: [id number] Loc: [place] [address] Phys: Sadaf Loo MD Acct: [id number] Dis Date: Status: REG ER PHONE #: [phone] Exam Date: 06/27/2018 1114 FAX #: [phone] Reason: SEIZURE, FALL EXAMS: CPT CODE: [id number] CT HEAD/BRAIN W/O CONT 59491 TECHNIQUE: - CT C-SPINE W/O CONTRAST, - [...] 1 Signed Report (CONTINUED) Name: LOLA THOMPSON [facility] : 1955 Age/S: 63 / M [address] [facility] Unit #: [id number] c: [place] [address] Phys: Sadaf Loo MD Acct: [id number] Dis Date: Status: REG ER PHONE #: [phone] Exam Date: 06/27/2018 1114 FAX #: [phone] Reas on: SEIZURE, FALL EXAMS: CPT CODE: [id number] CT HEAD/BRAIN W/O CONT 17856 <Continued> Alignment: No subluxation. Soft tissues: No [...] Sanchez,RT(R),CT CTDI: DLP: Trnscb Date/Time: 06/27/2018 (1142) t.SDR.TORI Orig Print D/T: S: 06/27/2018 (4520) PAGE 2 Signed Report - CT C-SPINE W/O [id number] 11:42:00 Name: LOLA ORTEGA [facility] : 1955 Age/S: 63 / M [address] [facility] Unit #: [id number] Loc: [place] [address] Phys: Sadaf Loo MD Acct: [id number] Di s Date: Status: REG ER PHONE #: Exam Date: 06/27/2018 1114 FAX #: Reason: SEIZURE, FALL EXAMS: CPT CODE: [id number] CT C-SPINE W/ O CONTRAST 46753 TECHNIQUE: - CT C- SPINE W/O CONTRAST, [...] Signed Report (CONTINUED) Name: LOLA THOMPSON JR [facility] : 1955 Age/S: 63 / M [address] [facility] Unit #: [id number] [place] [address] Phys: Sadaf Loo MD Acct: [id number] Dis Date: Status: REG ER PHONE #: [phone] Exam Date: 06/27/2018 1114 FAX #: [phone] Reas on: SEIZURE, FALL EXAMS: CPT CODE: [id number] CT C-SPINE W/O CONTRAST 02725 <Continued> Alignment: No subluxation. Soft tissues: No [...] Sanchez,RT(R),CT CTDI: DLP: Trnscb Date/Time: 06/27/2018 (1142) t.TORI Orig Print D/T: S: 06/27/2018 (8445) PAGE 2 Signed Report BASIC METABOLIC [id number] 12:45:00* Test Item Value Reference Range Interpretation Comments SODIUM (test code = NA) 141 mmol/L 136-145 N POTASSIUM (test code = K) 4.2 mmol/L 3.5-5.1 N CHLORIDE (test code = CL) 102.0 mmol/L 98-107 N CARBON DIOXIDE (test code = CO2) 34.0 mmol/L 21-32 H ANION GAP (test code = GAP) 9.2 10-20 L GLUCOSE (test code = GLU) 95 mg/dL 74-106 N BLOOD UREA NITROGEN (test code = BUN) 15 mg/dL 7-18 N GLOMERULAR FILTRATION RATE (test code = GFR) > 60 mL/min >=60 Estimated GFR by using Modified MDRD formula.Chronic kidney disease is defined as either kidney damageor GFR <60 mL/min/1.73 m2 for >3 months. CREATININE (test code = CREAT) 0.80 mg/dL 0.7-1.3 N BUN/CREATININE RATIO (test code = BUN/CREA) 18.0 10-20 N CALCIUM (test code = CA) 10.0 mg/dL 8.5-10.1 N [id number] 12:45:00* Test Item Value Reference Range Interpretation Comments MAGNESIUM (test code = MAG) 2.2 mg/dL 1.8-2.4 N BASIC METABOLIC [id number] 12:41:00* Test Item Value Reference Range Interpretation Comments SODIUM (test code = NA) 141 mmol/L 136-145 N POTASSIUM (test code = K) 4.2 mmol/L 3.5-5.1 N CHLORIDE (test code = CL) 102.0 mmol/L 98-107 N CARBON DIOXIDE (test code = CO2) mmol/L 21-32 ANION GAP (test code = GAP) 10-20 GLUCOSE (test code = GLU) mg/dL 74-106 BLOOD UREA NITROGEN (test code = BUN) mg/dL 7-18 GLOMERULAR FILTRATION RATE (test code = GFR) mL/min >=60 CREATININE (test code = CREAT) mg/dL 0.7-1.3 BUN/CREATININE RATIO (test code = BUN/CREA) 10-20 CALCIUM (test code = CA) mg/dL 8.5-10.1 [id number] 12:41:00* Test Item Value Reference Range Interpretation Comments MAGNESIUM (test code = MAG) mg/dL 1.8-2.4 CBC W/AUTO [id number] 12:04:00* Test Item Value Reference Range Interpretation Comments WHITE BLOOD CELL (test code = WBC) 5.9 K/mm3 4.5-12.5 N RED BLOOD CELL (test code = RBC) 3.45 mill/mm3 4.0-5.8 L HEMOGLOBIN (test code = HGB) 11.2 gram/dL 13.0-17.5 L HEMATOCRIT (test code = HCT) 33.9 % 42.0-52.0 L MEAN CELL VOLUME (test code = MCV) 98.3 fL 80-98 H MEAN CELL HGB (test code = MCH) 32.5 picogram 27.0-33.0 N MEAN CELL HGB CONCETRATION (test code = MCHC) 33.0 gram/dL 33.0-36. 0 N RED CELL DISTRIBUTION WIDTH (test code = RDW) 14.0 % 11.6-16. 2 N RED CELL DISTRIBUTION WIDTH SD (test code = RDW-SD) 50.5 fL 37 .0-51.0 N PLATELET COUNT (test code = PLT) 419 K/mm3 150-450 N MEAN PLATELET VOLUME (test code = MPV) 9.6 fL 6.7-11.0 N NEUTROPHIL % (test code = NT%) 44.9 % 39.0-69.0 N IMMATURE GRANULOCYTE % (test code = IG%) 0.5 % 0.0-5.0 N LYMPHOCYTE % (test code = LY%) 20.6 % 25.0-55.0 L MONOCYTE % (test code = MO%) 26.5 % 0.0-10.0 H EOSINOPHIL % (test code = EO%) 7.2 % 0.0-5.0 H BASOPHIL % (test code = BA%) 0.3 % 0.0-1.0 N NUCLEATED RBC % (test code = NRBC%) 0.0 % 0-0 N NEUTROPHIL # (test code = NT#) 2.63 K/mm3 1.8-7.7 N IMMATURE GRANULOCYTE # (test code = IG#) 0.03 x10 3/uL 0-0.03 N LYMPHOCYTE # (test code = LY#) 1.21 K/mm3 1.0-5.0 N MONOCYTE # (test code = MO#) 1.55 K/mm3 0-0.8 H EOSINOPHIL # (test code = EO#) 0.42 K/mm3 0.0-0.5 N BASOPHIL # (test code = BA#) 0.02 K/mm3 0.0-0.2 N NUCLEATED RBC # (test code = NRBC#) 0.00 K/mm3 0.0-0.1 N MANUAL DIFF REQUIRED (test code = MDIFF) NO BASIC METABOLIC [id number] 05:04:00* Test Item Value Reference Range Interpretation Comments SODIUM (test code = NA) 143 mmol/L 136-145 N POTASSIUM (test code = K) 3.6 mmol/L 3.5-5.1 N CHLORIDE (test code = CL) 105.0 mmol/L 98-107 N CARBON DIOXIDE (test code = CO2) 31.0 mmol/L 21-32 N ANION GAP (test code = GAP) 10.6 10-20 N GLUCOSE (test code = GLU) 87 mg/dL 74-106 N BLOOD UREA NITROGEN (test code = BUN) 11 mg/dL 7-18 N GLOMERULAR FILTRATION RATE (test code = GFR) > 60 mL/min >=60 Estimated GFR by using Modified MDRD formula.Chronic kidney disease is defined as either kidney damageor GFR <60 mL/min/1.73 m2 for >3 months. CREATININE (test code = CREAT) 0.70 mg/dL 0.7-1.3 N BUN/CREATININE RATIO (test code = BUN/CREA) 15.5 10-20 N CALCIUM (test code = CA) 8.5 mg/dL 8.5-10.1 N [id number] 05:04:00* Test Item Value Reference Range Interpretation Comments MAGNESIUM (test code = MAG) 1.6 mg/dL 1.8-2.4 L CBC W/AUTO [id number] 10:43:00* Test Item Value Reference Range Interpretation Comments WHITE BLOOD CELL (test code = WBC) 7.2 K/mm3 4.5-12.5 N RED BLOOD CELL (test code = RBC) 3.60 mill/mm3 4.0-5.8 L HEMOGLOBIN (test code = HGB) 11.6 gram/dL 13.0-17.5 L HEMATOCRIT (test code = HCT) 35.3 % 42.0-52.0 L MEAN CELL VOLUME (test code = MCV) 98.1 fL 80-98 H MEAN CELL HGB (test code = MCH) 32.2 picogram 27.0-33.0 N MEAN CELL HGB CONCETRATION (test code = MCHC) 32.9 gram/dL 33.0-36. 0 L RED CELL DISTRIBUTION WIDTH (test code = RDW) 14.1 % 11.6-16. 2 N RED CELL DISTRIBUTION WIDTH SD (test code = RDW-SD) 50.6 fL 37 .0-51.0 N PLATELET COUNT (test code = PLT) 122 K/mm3 150-450 L MEAN PLATELET VOLUME (test code = MPV) 10.6 fL 6.7-11.0 N NEUTROPHIL % (test code = NT%) 58.5 % 39.0-69.0 N IMMATURE GRANULOCYTE % (test code = IG%) 0.4 % 0.0-5.0 N LYMPHOCYTE % (test code = LY%) 21.4 % 25.0-55.0 L MONOCYTE % (test code = MO%) 18.5 % 0.0-10.0 H EOSINOPHIL % (test code = EO%) 1.1 % 0.0-5.0 N BASOPHIL % (test code = BA%) 0.1 % 0.0-1.0 N NUCLEATED RBC % (test code = NRBC%) 0.0 % 0-0 N NEUTROPHIL # (test code = NT#) 4.20 K/mm3 1.8-7.7 N IMMATURE GRANULOCYTE # (test code = IG#) 0.03 x10 3/uL 0-0.03 N LYMPHOCYTE # (test code = LY#) 1.54 K/mm3 1.0-5.0 N MONOCYTE # (test code = MO#) 1.33 K/mm3 0-0.8 H EOSINOPHIL # (test code = EO#) 0.08 K/mm3 0.0-0.5 N BASOPHIL # (test code = BA#) 0.01 K/mm3 0.0-0.2 N NUCLEATED RBC # (test code = NRBC#) 0.00 K/mm3 0.0-0.1 N MANUAL DIFF REQUIRED (test code = MDIFF) NO PT HARD STICK @[employer]LAB.[email or web address] 04/14/18 0919[facility]AT[facility] METABOLIC [id number] 05:40:00* Test Item Value Reference Range Interpretation Comments SODIUM (test code = NA) 141 mmol/L 136-145 N POTASSIUM (test code = K) 3.1 mmol/L 3.5-5.1 L CHLORIDE (test code = CL) 109.0 mmol/L 98-107 H CARBON DIOXIDE (test code = CO2) 23.0 mmol/L 21-32 N ANION GAP (test code = GAP) 12.1 10-20 N GLUCOSE (test code = GLU) 116 mg/dL 74-106 H BLOOD UREA NITROGEN (test code = BUN) 10 mg/dL 7-18 N GLOMERULAR FILTRATION RATE (test code = GFR) > 60 mL/min >=60 Estimated GFR by using Modified MDRD formula.Chronic kidney disease is defined as either kidney damageor GFR <60 mL/min/1.73 m2 for >3 months. CREATININE (test code = CREAT) 0.70 mg/dL 0.7-1.3 N BUN/CREATININE RATIO (test code = BUN/CREA) 14.1 10-20 N CALCIUM (test code = CA) 8.5 mg/dL 8.5-10.1 N [id number] 05:40:00* Test Item Value Reference Range Interpretation Comments MAGNESIUM (test code = MAG) 1.3 mg/dL 1.8-2.4 L BASIC METABOLIC [id number] 05:33:00* Test Item Value Reference Range Interpretation Comments SODIUM (test code = NA) 141 mmol/L 136-145 N POTASSIUM (test code = K) 3.1 mmol/L 3.5-5.1 L CHLORIDE (test code = CL) 109.0 mmol/L 98-107 H CARBON DIOXIDE (test code = CO2) mmol/L 21-32 ANION GAP (test code = GAP) 10-20 GLUCOSE (test code = GLU) mg/dL 74-106 BLOOD UREA NITROGEN (test code = BUN) mg/dL 7-18 GLOMERULAR FILTRATION RATE (test code = GFR) mL/min >=60 CREATININE (test code = CREAT) mg/dL 0.7-1.3 BUN/CREATININE RATIO (test code = BUN/CREA) 10-20 CALCIUM (test code = CA) mg/dL 8.5-10.1 [id number] 05:33:00* Test Item Value Reference Range Interpretation Comments MAGNESIUM (test code = MAG) mg/dL 1.8-2.4 LIPID PROFILE (CORONARY RISK)2018-04-11 04:58:00* Test Item Value Reference Range Interpretation Comments TRIGLYCERIDES (test code = TRIG) 48 mg/dL 20-150 N CHOLESTEROL (test code = CHOL) 79 mg/dL 0-200 N CHOLESTEROL/HDL RATIO (test code = CHOLHDL) 1.0 RATIO 0-4.9 N RISK ASSOCIATED WITH CHOL/HDL RATIOS: Risk Male Female1/2 AVERAGE 3.43 3.27AVERAGE 4.97 4.442X AVERAGE 9.55 7.053X AVERAGE 23.39 11.04 REFERENCE VALUE IS RELATED TO RISK LEVELS ASRECOMMENDED BY THE [facility]. HEART, LUNG, AND BLOOD INST. HDL CHOLESTEROL (test code = HDL) 42 mg/dL 40-60 N LIPOPROTEIN LDL (test code = LDL) 34 mg/dL 100-129 L Reference Interval: mg/dL mmol/L Optimal <100 <2.6Near/above optimal 100-129 2.6- 3.3Borderline High 130-159 3.4-4.1High 160-189 4.1-4.9Very High >=190 >=4.9========= This LDL result is a direct measurement.========= THYROID STIMULATING [id number] 04:58:00* Test Item Value Reference Range Interpretation Comments THYROID STIMULATING HORMONE (test code = TSH) 0.769 uIU/mL 0.36-3.7 4 N TSH REFERENCE RANGES: EUTHYROID: 0.35 - 4.3 mIU/mL HYPO : > 5.5 mIU/mL HYPER : < 0.35 mIU/mL CREATINE KINASE (CK)2018-04-11 04:51:00* Test Item Value Reference Range Interpretation Comments CREATINE KINASE (CK) (test code = CK) 2855 IUnit/L 26-208 H BASIC METABOLIC [id number] 04:30:00* Test Item Value Reference Range Interpretation Comments SODIUM (test code = NA) 142 mmol/L 136-145 N POTASSIUM (test code = K) 3.1 mmol/L 3.5-5.1 L CHLORIDE (test code = CL) 108.0 mmol/L 98-107 H CARBON DIOXIDE (test code = CO2) 20.0 mmol/L 21-32 L ANION GAP (test code = GAP) 17.1 10-20 N GLUCOSE (test code = GLU) 65 mg/dL 74-106 L BLOOD UREA NITROGEN (test code = BUN) 12 mg/dL 7-18 N GLOMERULAR FILTRATION RATE (test code = GFR) > 60 mL/min >=60 Estimated GFR by using Modified MDRD formula.Chronic kidney disease is defined as either kidney damageor GFR <60 mL/min/1.73 m2 for >3 months. CREATININE (test code = CREAT) 0.70 mg/dL 0.7-1.3 N BUN/CREATININE RATIO (test code = BUN/CREA) 17.9 10-20 N CALCIUM (test code = CA) 7.4 mg/dL 8.5-10.1 L [id number] 04:30:00* Test Item Value Reference Range Interpretation Comments MAGNESIUM (test code = MAG) 1.8 mg/dL 1.8-2.4 N BASIC METABOLIC [id number] 04:26:00* Test Item Value Reference Range Interpretation Comments SODIUM (test code = NA) 142 mmol/L 136-145 N POTASSIUM (test code = K) 3.1 mmol/L 3.5-5.1 L CHLORIDE (test code = CL) 108.0 mmol/L 98-107 H CARBON DIOXIDE (test code = CO2) mmol/L 21-32 ANION GAP (test code = GAP) 10-20 GLUCOSE (test code = GLU) mg/dL 74-106 BLOOD UREA NITROGEN (test code = BUN) mg/dL 7-18 GLOMERULAR FILTRATION RATE (test code = GFR) mL/min >=60 CREATININE (test code = CREAT) mg/dL 0.7-1.3 BUN/CREATININE RATIO (test code = BUN/CREA) 10-20 CALCIUM (test code = CA) 7.4 mg/dL 8.5-10.1 L [id number] 04:26:00* Test Item Value Reference Range Interpretation Comments MAGNESIUM (test code = MAG) mg/dL 1.8-2.4 DRUGS OF ABUSE SCREEN [id number] 10:09:00* Test Item Value Reference Range Interpretation Comments UA PH DIPSTICK (test code = LAMONT) 5.0 5.0-8.0 URN COCAINE (test code = COCAURN) NEGATIVE <300 ng/mL URN CANNABINOIDS (test code = CANNABURN) NEGATIVE <50 ng/mL URN AMPHETAMINE (test code = AMPHETURN) NEGATIVE <1000 ng/mL URN BARBITURATE (test code = BARBITURN) NEGATIVE <200 ng/mL URN BENZODIAZEPINE (test code = BENZOURN) NEGATIVE <200 ng/mL URN OPIATES (test code = OPIATURN) NEGATIVE <300 ng/mL URN PHENCYCLIDINE (PCP) (test code = PHENCURN) NEGATIVE <25 ng/ mL URN METHADONE (test code = METHAURN) NEGATIVE <300 ng/mL DRUGS OF ABUSE SCREEN [id number] 09:23:00* Test Item Value Reference Range Interpretation Comments UA PH DIPSTICK (test code = LAMONT) 5.0-8.0 URN COCAINE (test code = COCAURN) NEGATIVE <300 ng/mL URN CANNABINOIDS (test code = CANNABURN) NEGATIVE <50 ng/mL URN AMPHETAMINE (test code = AMPHETURN) NEGATIVE <1000 ng/mL URN BARBITURATE (test code = BARBITURN) NEGATIVE <200 ng/mL URN BENZODIAZEPINE (test code = BENZOURN) NEGATIVE <200 ng/mL URN OPIATES (test code = OPIATURN) NEGATIVE <300 ng/mL URN PHENCYCLIDINE (PCP) (test code = PHENCURN) NEGATIVE <25 ng/ mL URN METHADONE (test code = METHAURN) NEGATIVE <300 ng/mL URINALYSIS [id number] 09:14:00* Test Item Value Reference Range Interpretation Comments UA COLOR (test code = COLU) LIGHT YELLOW YELLOW UA APPEARANCE (test code = APPU) CLEAR CLEAR UA GLUCOSE DIPSTICK (test code = DGLUU) NEGATIVE mg/dL NEGATIVE UA BILIRUBIN DIPSTICK (test code = BILU) NEGATIVE mg/dL NEGATIVE UA KETONE DIPSTICK (test code = KETU) 80 mg/dL NEGATIVE A UA SPECIFIC GRAVITY (test code = SGU) 1.011 1.001-1.035 UA BLOOD DIPSTICK (test code = NESTOR) 2+ (Moderate) NEGATIVE A UA PH DIPSTICK (test code = LAMONT) 5.0 5.0-8.0 UA PROTEIN DIPSTICK (test code = PROU) Negative mg/dL NEGATIVE UA UROBILINIOGEN DIPSTICK (test code = URO) NEGATIVE mg/dL NEGATIVE UA NITRITE DIPSTICK (test code = TE) NEGATIVE NEGATIVE UA LEUKOCYTE ESTERASE W REFLEX (test code = LEUUR) NEGATIVE NEG ATIVE UA WBC (test code = WBCU) 0-5 #/HPF 0-5 UA RBC (test code = RBCU) 0-2 #/HPF 0-5 UA EPITHELIAL CELLS (test code = EPIU) None seen per HPF FEW UA BACTERIA (test code = BACU) FEW #/HPF NONE A UA HYALINE CAST (test code = HYALU) 0-2 #/LPF 0-5 UA MUCUS (test code = MUCU) FEW #/LPF FEW Urine Source? Clean CatchURINALYSIS [id number] 09:12:00* Test Item Value Reference Range Interpretation Comments UA COLOR (test code = COLU) LIGHT YELLOW YELLOW UA APPEARANCE (test code = APPU) CLEAR CLEAR UA GLUCOSE DIPSTICK (test code = DGLUU) NEGATIVE mg/dL NEGATIVE UA BILIRUBIN DIPSTICK (test code = BILU) NEGATIVE mg/dL NEGATIVE UA KETONE DIPSTICK (test code = KETU) 80 mg/dL NEGATIVE A UA SPECIFIC GRAVITY (test code = SGU) 1.011 1.001-1.035 UA BLOOD DIPSTICK (test code = NESTOR) 2+ (Moderate) NEGATIVE A UA PH DIPSTICK (test code = LAMONT) 5.0 5.0-8.0 UA PROTEIN DIPSTICK (test code = PROU) Negative mg/dL NEGATIVE UA UROBILINIOGEN DIPSTICK (test code = URO) NEGATIVE mg/dL NEGATIVE UA NITRITE DIPSTICK (test code = TE) NEGATIVE NEGATIVE UA LEUKOCYTE ESTERASE W REFLEX (test code = LEUUR) NEGATIVE NEG ATIVE UA WBC (test code = WBCU) per HPF 0-5 Urine Source? Clean Catch- XR CHEST 1 [id number] 02:45:00 FAX: Krissy Guzman [phone] [place]: [address] St: REG Name: LOLA FLORES [facility] : [birth year] 60 Age/S: 63/M [address] [facility] Unit #: [id number] Loc: [place] [address] Phys: Krissy Vasuqez Acct: [id number] Dis Date: Status: REG ER PHONE #: [phone] Exam Date: 04/10/2018 0233 FAX #: [phone] Reason: tachycardia EXAMS: CPT CODE: [id number] XR CHEST 1 V 64084 HISTORY: Tachycard ia Location: C3 COMPARISON:12/27/2017 FINDINGS: Heart size and vascularity are within normal limits. The lungs are clear of focal consolidation. No effusion, pneumothorax, or ac [place] osseous abnormality. IMPRESSION: 1 . No focal consolidation. No other acute abnormalities. Electronica lly Signed by Yoanna Jones MD on 04/10/2018 at 0245 Rep orted and signed by: Yoanna Jones MD CC: Krissy Vasquez MD Technologist: RT ARVIND Trnscrd Date/Time/By: 04/10/2018 (0245) : By: Elicia AugusteRXC2 Orig Print D/T: S: 04/10/2018 (0248) PAGE 1 Signed Report HEPATIC FUNCTION [id number] 00:02:00* Test Item Value Reference Range Interpretation Comments TOTAL PROTEIN (test code = PROT) 7.3 gram/dL 6.4-8.2 N ALBUMIN (test code = ALB) 4.2 g/dL 3.4-5.0 N GLOBULIN (test code = GLOB) 3.1 gram/dL 2.7-4.2 N ALBUMIN/GLOBULIN RATIO (test code = A/G) 1.4 0.75-1.50 N BILIRUBIN TOTAL (test code = BILT) 1.10 mg/dL 0.0-1.0 H BILIRUBIN DIRECT (test code = BILD) 0.32 mg/dL 0.0-0.20 H SGOT/AST (test code = AST) 144 IUnit/L 15-37 H SGPT/ALT (test code = ALT) 65 IUnit/L 12-78 N ALKALINE PHOSPHATASE TOTAL (test code = ALKP) 62 IUnit/L 45-117 N Note change in reference range due to change in reagent. [id number] 00:02:00* Test Item Value Reference Range Interpretation Comments LIPASE (test code = LIP) 122 U/L 73.0-393.0 N [id number] 00:02:00* Test Item Value Reference Range Interpretation Comments ALCOHOL (test code = ALC) 4 mg/dL 0.0-3.0 H -- INTERPRETIVE DATA NOTE: POSITIVE SCREENING RESULTS SHOULD BE CONSIDERED PRESUMPTIVE.WHEN COLLECTED FOR MEDICAL PURPOSES ONLY. SPECIMEN WILL NOTBE COLLECTED BY CHAIN OF CUSTODY.IF A CONFIRMATION OF POSITIVE RESULTS IS DESIRED, ACONFIRMATION TEST MUST BE REQUESTED BY THE PHYSICIAN AT ANADDITIONAL CHARGE TO THE PATIENT. BASIC METABOLIC [id number] 23:56:00* Test Item Value Reference Range Interpretation Comments SODIUM (test code = NA) 138 mmol/L 136-145 N POTASSIUM (test code = K) 4.3 mmol/L 3.5-5.1 N CHLORIDE (test code = CL) 104.0 mmol/L 98-107 N CARBON DIOXIDE (test code = CO2) 23.0 mmol/L 21-32 N ANION GAP (test code = GAP) 15.3 10-20 N GLUCOSE (test code = GLU) 114 mg/dL 74-106 H BLOOD UREA NITROGEN (test code = BUN) 15 mg/dL 7-18 N GLOMERULAR FILTRATION RATE (test code = GFR) > 60 mL/min >=60 Estimated GFR by using Modified MDRD formula.Chronic kidney disease is defined as either kidney damageor GFR <60 mL/min/1.73 m2 for >3 months. CREATININE (test code = CREAT) 0.80 mg/dL 0.7-1.3 N BUN/CREATININE RATIO (test code = BUN/CREA) 17.8 10-20 N CALCIUM (test code = CA) 8.2 mg/dL 8.5-10.1 L [id number] 23:56:00* Test Item Value Reference Range Interpretation Comments MAGNESIUM (test code = MAG) 1.7 mg/dL 1.8-2.4 L BASIC METABOLIC [id number] 23:52:00* Test Item Value Reference Range Interpretation Comments SODIUM (test code = NA) 138 mmol/L 136-145 N POTASSIUM (test code = K) 4.3 mmol/L 3.5-5.1 N CHLORIDE (test code = CL) 104.0 mmol/L 98-107 N CARBON DIOXIDE (test code = CO2) mmol/L 21-32 ANION GAP (test code = GAP) 10-20 GLUCOSE (test code = GLU) mg/dL 74-106 BLOOD UREA NITROGEN (test code = BUN) mg/dL 7-18 GLOMERULAR FILTRATION RATE (test code = GFR) mL/min >=60 CREATININE (test code = CREAT) mg/dL 0.7-1.3 BUN/CREATININE RATIO (test code = BUN/CREA) 10-20 CALCIUM (test code = CA) mg/dL 8.5-10.1 [id number] 23:52:00* Test Item Value Reference Range Interpretation Comments MAGNESIUM (test code = MAG) mg/dL 1.8-2.4 CBC W/AUTO [id number] 23:37:00* Test Item Value Reference Range Interpretation Comments WHITE BLOOD CELL (test code = WBC) 9.9 K/mm3 4.5-12.5 N RED BLOOD CELL (test code = RBC) 3.81 mill/mm3 4.0-5.8 L HEMOGLOBIN (test code = HGB) 12.3 gram/dL 13.0-17.5 L HEMATOCRIT (test code = HCT) 35.9 % 42.0-52.0 L MEAN CELL VOLUME (test code = MCV) 94.2 fL 80-98 N MEAN CELL HGB (test code = MCH) 32.3 picogram 27.0-33.0 N MEAN CELL HGB CONCETRATION (test code = MCHC) 34.3 gram/dL 33.0-36. 0 N RED CELL DISTRIBUTION WIDTH (test code = RDW) 14.2 % 11.6-16. 2 N RED CELL DISTRIBUTION WIDTH SD (test code = RDW-SD) 49.2 fL 37 .0-51.0 N PLATELET COUNT (test code = PLT) 114 K/mm3 150-450 L MEAN PLATELET VOLUME (test code = MPV) 10.9 fL 6.7-11.0 N NEUTROPHIL % (test code = NT%) 90.4 % 39.0-69.0 H IMMATURE GRANULOCYTE % (test code = IG%) 0.5 % 0.0-5.0 N LYMPHOCYTE % (test code = LY%) 3.6 % 25.0-55.0 L MONOCYTE % (test code = MO%) 5.2 % 0.0-10.0 N EOSINOPHIL % (test code = EO%) 0.1 % 0.0-5.0 N BASOPHIL % (test code = BA%) 0.2 % 0.0-1.0 N NUCLEATED RBC % (test code = NRBC%) 0.0 % 0-0 N NEUTROPHIL # (test code = NT#) 8.91 K/mm3 1.8-7.7 H IMMATURE GRANULOCYTE # (test code = IG#) 0.05 x10 3/uL 0-0.03 H LYMPHOCYTE # (test code = LY#) 0.35 K/mm3 1.0-5.0 L MONOCYTE # (test code = MO#) 0.51 K/mm3 0-0.8 N EOSINOPHIL # (test code = EO#) 0.01 K/mm3 0.0-0.5 N BASOPHIL # (test code = BA#) 0.02 K/mm3 0.0-0.2 N NUCLEATED RBC # (test code = NRBC#) 0.00 K/mm3 0.0-0.1 N - CT C-SPINE W/O [id number] 22:46:00 Name: LOLA ORTEGA [facility] : 1955 Age/S: 63 / M [address] [facility] Unit #: [id number] Loc: [place] [address] Phys: Krissy Vasquez MD Acct: [id number] Dis Date: Status: PRE ER PHONE #: [phone] Exam Date: 04/09/20186 FAX #: [phone] Reason: fall, seizure EXAMS: CPT CODE: [id number] CT C-SPINE W/O CONTRAST 00960 HISTORY: fall, seizure TECHNIQUE: Noncontrast 2.5 mm [...] Signed Report (CONTINUED) Nam e: LOLA ORTEGA [facility] : Age/S: 63 / M [address] [facility] Unit #: [id number] Loc: [place] [address] Phys: Krissy Vasquez MD Acct: [id number] Dis Harry e: Status: PRE ER PHONE #: Exam Date: 04/09/20182233 FAX #: [phone] Reason: fall, seizure EXAMS: CPT CODE: [id number] CT C-SPINE W/O CON TRAST 83481 <Continued> at 2246 Reported and signed by: Jordan Mathew MD CC: Krissy Vasquez MD Technologist:Casie Santana RT(R); YOANNA Yu CTDI: DLP: Trnscb Date/Time: 04/09/2018 (2245) [email or web address] Orig Print D/T: S: 04/09/2018 (5587) CTDI: DLP: PAGE 2 Signed Report - CT HEAD/BRAIN W/O [id number] 22:46:00 Name: LOLA ORTEGA [facility] : 1955 Age/S: 63 / M [address] [facility] Unit #: [id number] Loc: [place] [address] Phys: Matt Vasquez MD Acct: [id number] Di s Date: Status: PRE ER PHONE #: Exam Date: 04/09/20182233 FAX #: Reason: fall, seizure EXAMS: CPT CODE: [id number] CT HEAD/BRAIN W/O CONT 91713 HISTORY: fall, seizure TECHNIQUE: Noncontrast 2.5 mm [...] Signed Report (CONTINUED) Nam e: LOLA ORTEGA [facility] : Age/S: 63 / M [address] [facility] Unit #: [id number] Loc: [place] [address] Phys: Krissy Vasquez MD Acct: [id number] Dis Harry e: Status: PRE ER PHONE #: Exam Date: 04/09/20182233 FAX #: [phone] Reason: fall, seizure EXAMS: CPT CODE: [id number] CT HEAD/BRAIN W/O CONT 52580 <Continued> at 2246 Reported and signed by: Jordan Mahtew MD CC: Krissy Vasquez MD Technologist:Casie Santana RT(R); YOANNA Yu CTDI: DLP: Trnscb Date/Time: 04/09/2018 (2245) [email or web address] Orig Print D/T: S: 04/09/2018 (2249) CTDI: DLP: PAGE 2 Signed Report Urine [id number] 21:03:00* Test Item Value Reference Range Interpretation Comments Urine WBC (test code = 5821-4) NONE 0-5 [facility] [id number] 21:03:00* Test Item Value Reference Range Interpretation Comments Urine RBC (test code = 91510-3) NONE 0-5 [facility] [id number] 21:03:00* Test Item Value Reference Range Interpretation Comments Urine Bacteria (test code = 02691-7) NONE NONE [facility] Epithelial [id number] 21:03:00 * Test Item Value Reference Range Interpretation Comments Urine Epithelial Cells (test code = 50094-2) FEW NONE [facility] [id number] 21:03:00* Test Item Value Reference Range Interpretation Comments Urine Sperm (test code = 8248-7) PRESENT NONE [facility] [id number] 20:46:00* Test Item Value Reference Range Interpretation Comments Urine Color (test code = 5778-6) YELLOW YELLOW [facility] [id number] 20:46:00* Test Item Value Reference Range Interpretation Comments Urine Clarity (test code = 32280-6) SL CLOUDY CLEAR H [facility] Specific [id number] 20:46:00 * Test Item Value Reference Range Interpretation Comments Urine Specific [place] (test code = 5811-5) 1.025 1.010-1.02 5 [facility] [id number] 20:46:00* Test Item Value Reference Range Interpretation Comments Urine pH (test code = 71753-3) 7 5-7 [facility] Leukocyte [id number] 20:46:00* Test Item Value Reference Range Interpretation Comments Urine Leukocyte Esterase (test code = 5799-2) NEGATIVE NEGATIVE [facility] [id number] 20:46:00* Test Item Value Reference Range Interpretation Comments Urine Nitrite (test code = 47337-8) NEGATIVE NEGATIVE [facility] [id number] 20:46:00* Test Item Value Reference Range Interpretation Comments Urine Protein (test code = 5804-0) 2+ NEGATIVE H [facility] Glucose ([id number])2017-11-11 20:46:00* Test Item Value Reference Range Interpretation Comments Urine Glucose (UA) (test code = 2349-9) NEGATIVE NEGATIVE [facility] [id number] 20:46:00* Test Item Value Reference Range Interpretation Comments Urine Ketones (test code = 20994-9) 1+ NEGATIVE H [facility] Opiates [id number] 20:46:00* Test Item Value Reference Range Interpretation Comments Urine Opiates Screen (test code = 50617-1) NEGATIVE NEGATIVE [facility] Barbiturates [id number] 20:46:00* Test Item Value Reference Range Interpretation Comments Urine Barbiturates Screen (test code = 997384593) NEGATIVE NEGA TIVE [facility] Phencyclidine [id number] 20:46:00* Test Item Value Reference Range Interpretation Comments Urine Phencyclidine Screen (test code = 94706-5) NEGATIVE NEGAT CHRISTA [facility] Amphetamines [id number] 20:46:00* Test Item Value Reference Range Interpretation Comments Urine Amphetamines Screen (test code = 83268-3) NEGATIVE NEGATI VE [facility] Methamphetamines [id number] 20:46:00* Test Item Value Reference Range Interpretation Comments Urine Methamphetamines Screen (test code = Urine Metha mphetamines Screen) NEGATIVE NEGATIVE [facility] Benzodiazepines [id number] 20:46:00* Test Item Value Reference Range Interpretation Comments Urine Benzodiazepines Screen (test code = 75193-0) NEGATIVE NEG ATIVE [facility] Cocaine [id number] 20:46:00* Test Item Value Reference Range Interpretation Comments Urine Cocaine Screen (test code = 3398-5) NEGATIVE NEGATIVE [facility] Cannabinoids [id number] 20:46:00* Test Item Value Reference Range Interpretation Comments Urine Cannabinoids Screen (test code = 12176-6) NEGATIVE NEGATI VE THESE RESULTS ARE FOR MEDICAL TREATMENT ONLYTHIS REPORT CONTAINS UNCONFIR MED SCREENING RESULTS*POSITIVE RESULTS WILL BE CONFIRMED BY REFERENCE LAB UPON R EQUEST CUT-OFFDRUG CLASS CONCENTRATION ng/mLAmphetamines 1000Methamphetamines 1000Cocaine 300Opiate 300Phencyc lidine 25Cannabinoid 50Barbiturates 300Benzodiazepine 300Methadone 300[facility]one [id number] 20:46:00* Test Item Value Reference Range Interpretation Comments Urine Methadone Screen (test code = 32506-9) NEGATIVE NEGATIVE THESE RESULTS ARE FOR MEDICAL TREATMENT ONLYTHIS REPORT CONTAINS UNCONFIR MED SCREENING RESULTS*POSITIVE RESULTS WILL BE CONFIRMED BY REFERENCE LAB UPON R EQUEST CUT-OFFDRUG CLASS CONCENTRATION ng/mLAmphetamines 1000Methamphetamines 1000Cocaine Metabolite 300Opiate 300Phencyc lidine 25Cannabinoid 50Barbiturates 300Benzodiazepine 300Methadone 300[facility] Center[facility] [id number] 20:46:00* Test Item Value Reference Range Interpretation Comments Urine Urobilinogen (test code = 89701-5) 0.2 0.2-1 [facility] [id number] 20:46:00* Test Item Value Reference Range Interpretation Comments Urine Bilirubin (test code = 1978-6) NEGATIVE NEGATIVE [facility] [id number] 20:46:00* Test Item Value Reference Range Interpretation Comments Urine Blood (test code = 99121-6) TRACE NEGATIVE H [facility] CenterDifferential Total Cells Counted 2017-11-11 20:35:00* Test Item Value Reference Range Interpretation Comments Differential Total Cells Counted (test code = Differen tial Total Cells Counted) 100 [facility] CenterNeutrophils % (Manual)2017-11-11 20:35:00 * Test Item Value Reference Range Interpretation Comments Neutrophils % (Manual) (test code = 03002-4) 92 40-74 H [facility] CenterLymphocytes % (Manual)2017-11-11 20:35:00 * Test Item Value Reference Range Interpretation Comments Lymphocytes % (Manual) (test code = 737-7) 3 19-48 L [facility] CenterMonocytes % (Manual)2017-11-11 20:35:00* Test Item Value Reference Range Interpretation Comments Monocytes % (Manual) (test code = 744-3) 3 3.4-9.0 L [facility] CenterEosinophils % (Manual)2017-11-11 20:35:00 * Test Item Value Reference Range Interpretation Comments Eosinophils % (Manual) (test code = 714-6) 1 0-7 [facility] CenterReactive [id number] 20:35:00* Test Item Value Reference Range Interpretation Comments Reactive Lymphocytes (test code = 33678-9) 1 [facility] CenterPlatelet [id number] 20:35:00* Test Item Value Reference Range Interpretation Comments Platelet Estimate (test code = 04879-2) ADEQUATE [facility] CenterPlatelet Morphology Zcnikpl1304-07-38 20:35:00* Test Item Value Reference Range Interpretation Comments Platelet Morphology Comment (test code = 54744-1) NORMAL [facility] CenterRed Cell Morphology Ukgoetw9699-35-59 20:35:00* Test Item Value Reference Range Interpretation Comments Red Cell Morphology Comment (test code = 6742-1) NORMAL [facility] CenterEthyl Alcohol Yhneh5424-51-27 20:01:00* Test Item Value Reference Range Interpretation Comments Ethyl Alcohol Level (test code = 5643-2) -10.0 0.0-10.0 [facility] CenterCreatine Kinase SQ0545-35-81 19:55:00* Test Item Value Reference Range Interpretation Comments Creatine Kinase MB (test code = 69469-4) 2.70 0-5.0 [facility] CenterTroponin J5741-63-81 19:55:00* Test Item Value Reference Range Interpretation Comments Troponin I (test code = BWF7366) 0.001 0-0.300 [facility]odium Gzkts3792-79-33 19:45:00* Test Item Value Reference Range Interpretation Comments Sodium Level (test code = 2951-2) 138 136-145 [facility] CenterPotassium Pkpbs6207-36-56 19:45:00* Test Item Value Reference Range Interpretation Comments Potassium Level (test code = 2823-3) 3.6 3.5-5.1 [facility] CenterChloride Vywsq4049-19-01 19:45:00* Test Item Value Reference Range Interpretation Comments Chloride Level (test code = 2075-0) 100 98-107 [facility] CenterCarbon Dioxide Hwwvu8584-16-79 19:45:00* Test Item Value Reference Range Interpretation Comments Carbon Dioxide Level (test code = 2028-9) 18 22-29 L [facility] CenterAnion Ksu3995-08-82 19:45:00* Test Item Value Reference Range Interpretation Comments Anion Gap (test code = 05575-2) 23.6 8-16 H [facility] CenterBlood Urea Ntskepxf5554-60-21 19:45:00* Test Item Value Reference Range Interpretation Comments Blood Urea Nitrogen (test code = 3094-0) 17 7-26 [facility] CenterCreatinine2018-10-01 19:45:00* Test Item Value Reference Range Interpretation Comments Creatinine (test code = 2160-0) 0.90 0.72-1.25 [facility] CenterBUN/Creatinine Ppmgn5864-17-45 19:45:00* Test Item Value Reference Range Interpretation Comments BUN/Creatinine Ratio (test code = 3097-3) 19 6-25 [facility] CenterEstimat Glomerular Filtration Rate 2017-11-11 19:45:00* Test Item Value Reference Range Interpretation Comments Estimat Glomerular Filtration Rate (test code = 266753657) 60- >60 Ranges were taken from the National Kidney Disease Education Program and the [facility] literature.Reference ranges:60 or greater: Wqchke45-63 ( for 3 consecutive months): Chronic kidney disease 15 or less: Kidney failureWilson N. Jones Regional Medical CenterGlucose Bimdi9088-14-64 19:45:00* Test Item Value Reference Range Interpretation Comments Glucose Level (test code = HVC5758) 166 74-118 H [facility] CenterCalcium Zvfgu4674-33-55 19:45:00* Test Item Value Reference Range Interpretation Comments Calcium Level (test code = 79190-8) 8.8 8.4-10.2 [facility] CenterTotal Lqomyqnhq8587-31-76 19:45:00* Test Item Value Reference Range Interpretation Comments Total Bilirubin (test code = 1975-2) 1.3 0.2-1.2 H [facility] CenterAspartate Amino Transf (AST/SGOT) 2017-11-11 19:45:00* Test Item Value Reference Range Interpretation Comments Aspartate Amino Transf (AST/SGOT) (test code = Aspartate Amino Transf (AST/SGOT)) 70 5-34 H [facility] CenterAlanine Aminotransferase (ALT/SGPT) 2017-11-11 19:45:00* Test Item Value Reference Range Interpretation Comments Alanine Aminotransferase (ALT/SGPT) (test code = 1742-6) 37 0-55 [facility] CenterTotal Saxdlvr5870-43-65 19:45:00* Test Item Value Reference Range Interpretation Comments Total Protein (test code = 2885-2) 7.4 6.5-8.1 [facility] CenterAlbumin2018-10-01 19:45:00* Test Item Value Reference Range Interpretation Comments Albumin (test code = 1751-7) 4.4 3.5-5.0 [facility] CenterGlobulin2018-10-01 19:45:00* Test Item Value Reference Range Interpretation Comments Globulin (test code = 80852-2) 3.0 2.3-3.5 [facility] CenterAlbumin/Globulin Evgwn9129-88-79 19:45:00 * Test Item Value Reference Range Interpretation Comments Albumin/Globulin Ratio (test code = 1759-0) 1.5 0.8-2.0 [facility] CenterAlkaline Lieeaeroxfs5001-06-02 19:45:00* Test Item Value Reference Range Interpretation Comments Alkaline Phosphatase (test code = 6768-6) 54 40-150 [facility] CenterCreatine Chupnz5690-59-70 19:45:00* Test Item Value Reference Range Interpretation Comments Creatine Kinase (test code = 2157-6) 245 30-200 H [facility] CenterWhite Blood Aaqcf8949-45-76 19:28:00* Test Item Value Reference Range Interpretation Comments White Blood Count (test code = 6690-2) 6.96 4.8-10.8 [facility] CenterRed Blood Bnfgj1116-57-05 19:28:00* Test Item Value Reference Range Interpretation Comments Red Blood Count (test code = 789-8) 3.98 4.3-5.7 L [facility] CenterHemoglobin2018-10-01 19:28:00* Test Item Value Reference Range Interpretation Comments Hemoglobin (test code = 35949-4) 13.4 14.0-18.0 L [facility] CenterHematocrit2018-10-01 19:28:00* Test Item Value Reference Range Interpretation Comments Hematocrit (test code = 4544-3) 37.8 38.2-49.6 L [facility] CenterMean Corpuscular Dhgsux6061-36-45 19:28:00* Test Item Value Reference Range Interpretation Comments Mean Corpuscular Volume (test code = 787-2) 95.0 81-99 [facility] CenterMean Corpuscular Qslghlzqdy8584-07-36 19:28:00* Test Item Value Reference Range Interpretation Comments Mean Corpuscular Hemoglobin (test code = 785-6) 33.7 28-32 H [facility] CenterMean Corpuscular Hemoglobin Concent 2017-11-11 19:28:00* Test Item Value Reference Range Interpretation Comments Mean Corpuscular Hemoglobin Concent (test code = 786-4) 35.4 31-35 H [facility] CenterRed Cell Distribution Dawvr8794-80-24 19:28:00* Test Item Value Reference Range Interpretation Comments Red Cell Distribution Width (test code = 17311-6) 13.3 11.7 -14.4 [facility] CenterPlatelet Fbiqu0690-99-65 19:28:00* Test Item Value Reference Range Interpretation Comments Platelet Count (test code = 777-3) 144 140-360 [facility] CenterNeutrophils (%) (Auto)2017-11-11 19:28:00 * Test Item Value Reference Range Interpretation Comments Neutrophils (%) (Auto) (test code = 88292-9) 87.2 38.7-80.0 H [facility] CenterLymphocytes (%) (Auto)2017-11-11 19:28:00 * Test Item Value Reference Range Interpretation Comments Lymphocytes (%) (Auto) (test code = 736-9) 4.3 18.0-39.1 L [facility] CenterMonocytes (%) (Auto)2017-11-11 19:28:00* Test Item Value Reference Range Interpretation Comments Monocytes (%) (Auto) (test code = 5905-5) 7.5 4.4-11.3 [facility] CenterEosinophils (%) (Auto)2017-11-11 19:28:00 * Test Item Value Reference Range Interpretation Comments Eosinophils (%) (Auto) (test code = 713-8) 0.0 0.0-6.0 [facility] CenterBasophils (%) (Auto)2017-11-11 19:28:00* Test Item Value Reference Range Interpretation Comments Basophils (%) (Auto) (test code = 706-2) 0.1 0.0-1.0 [facility] CenterIM GRANULOCYTES %2017-11-11 19:28:00* Test Item Value Reference Range Interpretation Comments IM GRANULOCYTES % (test code = IM GRANULOCYTES %) 0.9 0.0- 1.0 [facility] CenterNeutrophils # (Auto)2017-11-11 19:28:00* Test Item Value Reference Range Interpretation Comments Neutrophils # (Auto) (test code = 751-8) 6.1 2.1-6.9 [facility] CenterLymphocytes # (Auto)2017-11-11 19:28:00* Test Item Value Reference Range Interpretation Comments Lymphocytes # (Auto) (test code = 62605-6) 0.3 1.0-3.2 L [facility] CenterMonocytes # (Auto)2017-11-11 19:28:00* Test Item Value Reference Range Interpretation Comments Monocytes # (Auto) (test code = 742-7) 0.5 0.2-0.8 [facility] CenterEosinophils # (Auto)2017-11-11 19:28:00* Test Item Value Reference Range Interpretation Comments Eosinophils # (Auto) (test code = 711-2) 0.0 0.0-0.4 [facility] CenterBasophils # (Auto)2017-11-11 19:28:00* Test Item Value Reference Range Interpretation Comments Basophils # (Auto) (test code = 704-7) 0.0 0.0-0.1 [facility] CenterAbsolute Immature Granulocyte (auto 2017-11-11 19:28:00* Test Item Value Reference Range Interpretation Comments Absolute Immature Granulocyte (auto (rachel t code = Absolute Immature Granulocyte (auto) 0.06 0-0.1 [facility] CenterCT BRAIN EW3672-31-85 18:52:00 [facility] [address] [address] Patient Name: LOLA ORTEGA MR #: [id number] : 1955 Age/Sex: 62/M Req #: [id number] Adm Physician: Ordered by: KATHLEEN BRICEÑO MD Report #: [id number] Location: ER Room /Bed: Procedure: [id number] CT/CT BRAIN WO Exam Date: 11/11/17 Exam [...] moderate cerebellar volume loss. Signed by: Dr. Radha William M.D. on 11/11/2017 6:53 PM Dictated By: RADHA MARTIN MD Shona ctronically Signed By: RADHA MARTIN MD on 11/11/171852 Transcribed By: CLEO on 11/11/171852 COPY TO: KATHLEEN BRICEÑO MD Lactic Acid Udlfc1756-72-07 00:22:00* Test Item Value Reference Range Interpretation Comments Lactic Acid Level (test code = Lactic Acid Level) 6.1 4.5- 19.8 [facility] CenterLactic Acid Xqibe2143-73-32 00:22:00* Test Item Value Reference Range Interpretation Comments Lactic Acid Level (test code = Lactic Acid Level) 6.1 4.5- 19.8 [facility] CenterEthyl Alcohol Qnksd7445-59-91 19:36:00* Test Item Value Reference Range Interpretation Comments Ethyl Alcohol Level (test code = 5643-2) -10.0 0.0-10.0 [facility] CenterCreatine Kinase WM6033-60-06 19:21:00* Test Item Value Reference Range Interpretation Comments Creatine Kinase MB (test code = 69580-7) 4.10 0-5.0 [facility] CenterTroponin P8490-50-52 19:21:00* Test Item Value Reference Range Interpretation Comments Troponin I (test code = XJU5848) 0.009 0-0.300 [facility] Hospitalodium Hdact3475-06-85 19:11:00* Test Item Value Reference Range Interpretation Comments Sodium Level (test code = 2951-2) 141 136-145 [facility] CenterPotassium Leabw6065-15-36 19:11:00* Test Item Value Reference Range Interpretation Comments Potassium Level (test code = 2823-3) 3.9 3.5-5.1 [facility] CenterChloride Tccha3144-24-33 19:11:00* Test Item Value Reference Range Interpretation Comments Chloride Level (test code = 2075-0) 101 98-107 [facility] CenterCarbon Dioxide Hyqgt2534-27-36 19:11:00* Test Item Value Reference Range Interpretation Comments Carbon Dioxide Level (test code = 2028-9) 13 22-29 L [facility] CenterAnion Jke6603-57-79 19:11:00* Test Item Value Reference Range Interpretation Comments Anion Gap (test code = 57635-9) 30.9 8-16 H [facility] CenterBlood Urea Lbyxuiyf9543-60-35 19:11:00* Test Item Value Reference Range Interpretation Comments Blood Urea Nitrogen (test code = 3094-0) 17 7-26 [facility] CenterCreatinine2018-08-08 19:11:00* Test Item Value Reference Range Interpretation Comments Creatinine (test code = 2160-0) 0.93 0.72-1.25 [facility] CenterBUN/Creatinine Tarzq7324-63-88 19:11:00* Test Item Value Reference Range Interpretation Comments BUN/Creatinine Ratio (test code = 3097-3) 18 6-25 [facility] CenterEstimat Glomerular Filtration Rate 2017-09-18 19:11:00* Test Item Value Reference Range Interpretation Comments Estimat Glomerular Filtration Rate (test code = 22337-3) 60- >60 Ranges were taken from the National Kidney Disease Education Program and the [facility] literature.Reference ranges:60 or greater: Uximoy87-05 ( for 3 consecutive months): Chronic kidney disease 15 or less: Kidney failureWilson N. Jones Regional Medical CenterGlucose Isngk6400-89-96 19:11:00* Test Item Value Reference Range Interpretation Comments Glucose Level (test code = GED2641) 135 74-118 H [facility] CenterCalcium Gqebb2451-16-64 19:11:00* Test Item Value Reference Range Interpretation Comments Calcium Level (test code = 07528-2) 9.8 8.4-10.2 [facility] CenterTotal Bkmdtdsoi3192-09-85 19:11:00* Test Item Value Reference Range Interpretation Comments Total Bilirubin (test code = 1975-2) 1.3 0.2-1.2 H [facility] CenterAspartate Amino Transf (AST/SGOT) 2017-09-18 19:11:00* Test Item Value Reference Range Interpretation Comments Aspartate Amino Transf (AST/SGOT) (test code = Aspartate Amino Transf (AST/SGOT)) 85 5-34 H [facility] CenterAlanine Aminotransferase (ALT/SGPT) 2017-09-18 19:11:00* Test Item Value Reference Range Interpretation Comments Alanine Aminotransferase (ALT/SGPT) (test code = 1742-6) 43 0-55 [facility] CenterTotal Nskpcbp0643-58-94 19:11:00* Test Item Value Reference Range Interpretation Comments Total Protein (test code = 2885-2) 7.5 6.5-8.1 [facility] CenterAlbumin2018-08-08 19:11:00* Test Item Value Reference Range Interpretation Comments Albumin (test code = 1751-7) 4.5 3.5-5.0 [facility] CenterGlobulin2018-08-08 19:11:00* Test Item Value Reference Range Interpretation Comments Globulin (test code = 84598-8) 3.0 2.3-3.5 [facility] CenterAlbumin/Globulin Hjwep7932-10-45 19:11:00 * Test Item Value Reference Range Interpretation Comments Albumin/Globulin Ratio (test code = 1759-0) 1.5 0.8-2.0 [facility] CenterAlkaline Uafynrugnsb1212-37-96 19:11:00* Test Item Value Reference Range Interpretation Comments Alkaline Phosphatase (test code = 6768-6) 53 40-150 [facility] CenterCreatine Qvaosv1335-09-87 19:11:00* Test Item Value Reference Range Interpretation Comments Creatine Kinase (test code = 2157-6) 246 30-200 H [facility] CenterCT CERVICAL SPINE ZY9689-75-18 18:53:00 [facility] [address] [address] Patient Name: LOLA ORTEGA MR #: [id number] : 1955 Age/Sex: 62/M Req #: [id number] Adm Physician: Ordered by: CARLEE ROACH MD Report #: [id number] Location: Room/B ed: Procedure: [id number] CT/CT CERVICAL SPINE WO Maddi Date: 09/18/17 Exam Time: 1836 REPORT STATUS: [...] 1. No acute cervical spine abnormalities. Degenerat christa changes as described above. 2. Cannot exclude ligament, spinal cord and or vascular abnormalities on the basis of this examination. Signed by : DR Bar Parry M.D. on 09/18/2017 6:57 PM Dictated By: BAR SWEENEY MD 55 Transcribed By: CLEO on 09/18/171856 COPY TO: CARLEE ROACH MD CT BRAIN TZ7086-87-27 18:51:[address] [address] Patient Name: LOLA ORTEGA MR #: [id number] : 1955 Age/Sex: 62/M Req #: [id number] Adm Physician: Ordered by: CARLEE ROACH MD Report #: [id number] Location: Room/Bed: Procedure: [id number] CT/CT BRAIN WO Exam Date: 09/18/17 Exam Time: 183 REPORT STATUS: Signed ADDENDUM #1 Dose modulation, [...] 54 Transcribed By: CLEO on 0 09/18/17 731 COPY TO: CARLEE ROACH MD White Blood Count 2017-09-18 18:50:00* Test Item Value Reference Range Interpretation Comments White Blood Count (test code = 6690-2) 8.57 4.8-10.8 [facility] CenterRed Blood Yfxwj9450-59-09 18:50:00* Test Item Value Reference Range Interpretation Comments Red Blood Count (test code = 789-8) 3.92 4.3-5.7 L [facility] CenterHemoglobin2018-08-08 18:50:00* Test Item Value Reference Range Interpretation Comments Hemoglobin (test code = 41567-7) 13.3 14.0-18.0 L [facility] CenterHematocrit2018-08-08 18:50:00* Test Item Value Reference Range Interpretation Comments Hematocrit (test code = 4544-3) 39.4 38.2-49.6 [facility] CenterMean Corpuscular Tflihy3468-19-80 18:50:00* Test Item Value Reference Range Interpretation Comments Mean Corpuscular Volume (test code = 787-2) 100.5 81-99 H [facility] CenterMean Corpuscular Lwnywvxrox5011-01-46 18:50:00* Test Item Value Reference Range Interpretation Comments Mean Corpuscular Hemoglobin (test code = 785-6) 33.9 28-32 H [facility] CenterMean Corpuscular Hemoglobin Concent 2017-09-18 18:50:00* Test Item Value Reference Range Interpretation Comments Mean Corpuscular Hemoglobin Concent (test code = 786-4) 33.8 31-35 [facility] CenterRed Cell Distribution Mhsxk0774-03-22 18:50:00* Test Item Value Reference Range Interpretation Comments Red Cell Distribution Width (test code = 06085-7) 13.7 11.7 -14.4 [facility] CenterPlatelet Kuljo5250-77-43 18:50:00* Test Item Value Reference Range Interpretation Comments Platelet Count (test code = 777-3) 318 140-360 [facility] CenterNeutrophils (%) (Auto)2017-09-18 18:50:00 * Test Item Value Reference Range Interpretation Comments Neutrophils (%) (Auto) (test code = 51671-6) 47.1 38.7-80.0 [facility] CenterLymphocytes (%) (Auto)2017-09-18 18:50:00 * Test Item Value Reference Range Interpretation Comments Lymphocytes (%) (Auto) (test code = 736-9) 41.1 18.0-39.1 H [facility] CenterMonocytes (%) (Auto)2017-09-18 18:50:00* Test Item Value Reference Range Interpretation Comments Monocytes (%) (Auto) (test code = 5905-5) 9.6 4.4-11.3 [facility] CenterEosinophils (%) (Auto)2017-09-18 18:50:00 * Test Item Value Reference Range Interpretation Comments Eosinophils (%) (Auto) (test code = 713-8) 1.1 0.0-6.0 [facility] CenterBasophils (%) (Auto)2017-09-18 18:50:00* Test Item Value Reference Range Interpretation Comments Basophils (%) (Auto) (test code = 706-2) 0.6 0.0-1.0 [facility] CenterIM GRANULOCYTES %2017-09-18 18:50:00* Test Item Value Reference Range Interpretation Comments IM GRANULOCYTES % (test code = IM GRANULOCYTES %) 0.5 0.0- 1.0 [facility] CenterNeutrophils # (Auto)2017-09-18 18:50:00* Test Item Value Reference Range Interpretation Comments Neutrophils # (Auto) (test code = 751-8) 4.1 2.1-6.9 [facility] CenterLymphocytes # (Auto)2017-09-18 18:50:00* Test Item Value Reference Range Interpretation Comments Lymphocytes # (Auto) (test code = 39797-8) 3.5 1.0-3.2 H [facility] CenterMonocytes # (Auto)2017-09-18 18:50:00* Test Item Value Reference Range Interpretation Comments Monocytes # (Auto) (test code = 742-7) 0.8 0.2-0.8 [facility] CenterEosinophils # (Auto)2017-09-18 18:50:00* Test Item Value Reference Range Interpretation Comments Eosinophils # (Auto) (test code = 711-2) 0.1 0.0-0.4 [facility] CenterBasophils # (Auto)2017-09-18 18:50:00* Test Item Value Reference Range Interpretation Comments Basophils # (Auto) (test code = 704-7) 0.1 0.0-0.1 [facility] CenterAbsolute Immature Granulocyte (auto 2017-09-18 18:50:00* Test Item Value Reference Range Interpretation Comments Absolute Immature Granulocyte (auto (rachel t code = Absolute Immature Granulocyte (auto) 0.04 0-0.1 [facility] CenterProthrombin Vbfr7876-67-98 20:14:00* Test Item Value Reference Range Interpretation Comments Prothrombin Time (test code = 5902-2) 13.0 11.9-14.5 [facility] CenterProthromb Time International Ratio 2017-02-25 20:14:00* Test Item Value Reference Range Interpretation Comments Prothromb Time International Ratio (test code = 6301-6) 0.94 Oral Anticoagulant Therapy INR Values:1. Low Intensity Therapy 1.5 - 2.02 . Moderate Intensity Therapy 2.0 - 3.03. High Intensity Therapy(1) 2.5 - 3. 54. High Intensity Therapy(2) 3.0 - 4.05. Panic Value INR > 5.0 [facility] CenterActivated Partial Thromboplast Time 2017-02-25 20:14:00* Test Item Value Reference Range Interpretation Comments Activated Partial Thromboplast Time (test code = 25111-8) 25.8 23.8-35.5 [facility] CenterProthrombin Xkko7211-53-48 20:14:00* Test Item Value Reference Range Interpretation Comments Prothrombin Time (test code = 5902-2) 13.0 11.9-14.5 [facility] CenterProthromb Time International Ratio 2017-02-25 20:14:00* Test Item Value Reference Range Interpretation Comments Prothromb Time International Ratio (test code = 6301-6) 0.94 Oral Anticoagulant Therapy INR Values:1. Low Intensity Therapy 1.5 - 2.02 . Moderate Intensity Therapy 2.0 - 3.03. High Intensity Therapy(1) 2.5 - 3. 54. High Intensity Therapy(2) 3.0 - 4.05. Panic Value INR > 5.0 [facility] CenterActivated Partial Thromboplast Time 2017-02-25 20:14:00* Test Item Value Reference Range Interpretation Comments Activated Partial Thromboplast Time (test code = 59948-5) 25.8 23.8-35.5 [facility] CenterCT BRAIN WO [facility] [address] [address] Patient Name: LOLA ORTEGA MR #: [id number] : 1955 Age/Sex: 61/M Req #: [id number] Adm Physician: Ordered by: CHANELL RUIZ MD Report #: [id number] Location: ER Room/Bed: Procedure: [id number] CT/CT BRAIN WO Exam Date: 02/11 06/28 [...]
[2019-09-23] MEDS ORDERED: SODIUM CHLORIDE 0.9% 1000ML 1,000 ML IV STA (16:55)
[2019-09-23] MEDS ORDERED: PANTOPRAZOLE 40 MG 10ML VIAL IV STA (16:55)
[2019-09-23 17:09] LABS: BASOPHILS % 0.3 % (0.0-1.0); EOSINOPHILS # (AUTO) 0.2 (0.0-0.4); EOSINOPHILS % 3.7 % (0.0-6.0); HEMATOCRIT 32.6 % (38.2-49.6); HEMOGLOBIN 10.8 g/dL (14.0-18.0); LYMPHOCYTES # (AUTO) 2.7 (1.0-3.2); LYMPHOCYTES % 43.5 % (18.0-39.1); MEAN CORPUSCULAR HEMOGLOBIN 33.9 pg (28-32); MEAN CORPUSCULAR HGB CONC 33.1 g/dL (31-35); MEAN CORPUSCULAR VOLUME 102.2 fL (81-99); MONOCYTES # (AUTO) 0.9 (0.2-0.8); NEUTROPHILS # (AUTO) 2.4 (2.1-6.9); NEUTROPHILS % 37.9 % (38.7-80.0); PLATELET COUNT 252 x10e3/uL (140-360); RED BLOOD COUNT 3.19 x10e6/uL (4.3-5.7); RED CELL DISTRIBUTION WIDTH 14.6 % (11.7-14.4)
[2019-09-23 17:12] LABS: INR 0.9; PROTHROMBIN TIME 12.6 seconds (11.9-14.5)
[2019-09-23 17:13] LABS: PARTIAL THROMBOPLASTIN TIME 28.3 seconds (23.8-35.5)
[2019-09-23 17:21] LABS: ALANINE AMINOTRANSFERASE 55 IU/L (0-55); ALBUMIN/GLOBULIN RATIO 1.4 (0.8-2.0); ALKALINE PHOSPHATASE 44 IU/L (40-150); ANION GAP 15.1 mmol/L (8-16); BLOOD UREA NITROGEN 19 mg/dL (7-26); BUN/CREATININE RATIO 20 (6-25); CALCIUM 9.3 mg/dL (8.4-10.2); CARBON DIOXIDE 24 mmol/L (22-29); CHLORIDE 108 mmol/L (98-107); CREATINE KINASE 127 IU/L (30-200); CREATININE, SERUM 0.94 mg/dL (0.72-1.25); EST GLOMERULAR FILTRATION RATE > 60 ML/MIN (60-); GLUCOSE 84 mg/dL (74-118); POTASSIUM 4.1 mmol/L (3.5-5.1); SODIUM 143 mmol/L (136-145)
--- NOTE | 2019-09-23 18:07 | Diagnostic Imaging Report ---
Exam: Head CT without contrast History: Trauma, fall Comparison studies: Multiple prior head CTs are stated to 02/25/2017, most recent of 06/06/2019. Technique: Axial images were obtained from the skull base to the vertex. Coronal and sagittal images reconstructed from the axial data. Dose modulation, iterative reconstruction, and/or weight based adjustment of the mA/kV was utilized to reduce the radiation dose to as low as reasonably achievable. Radiation dose: Total DLP: 1223 mGy*cm. Estimated effective dose: DLP x 0.015 Intravenous contrast: None Findings: Scalp: No abnormalities. Bones: No fractures, blastic or lytic lesions. Ventricles: Moderate compensatory dilatation. No hydrocephalus. Extra-axial spaces: No masses, no fluid collection. Parenchyma: No mass, acute hemorrhage or acute cortical insult. Severe disproportionate cerebellar atrophy is superimposed on moderate generalized brain volume loss. Disproportionate cerebellar atrophy can be seen with chronic antiepileptic medication use (i.e. Dilantin) or with chronic EtOH use in the upper clinical setting. A few scattered hypodensities in the supratentorial white matter are nonspecific but are most compatible with chronic microvascular ischemic changes. Sellar/suprasellar region: No abnormalities. Craniocervical junction: Patent foramen magnum. No Chiari one malformation. Incidental findings: Bilateral lens replacements related to previous cataract surgery. Atherosclerotic calcifications in the carotid siphons and in the right intradural vertebral artery. IMPRESSION: No acute abnormalities. Chronic findings: 1. Mild chronic microvascular ischemic changes. 2. Unchanged severe cerebellar atrophy superimposed on moderate generalized parenchymal volume loss. Signed by: Dr. Justino García M.D. on 09/23/2019 6:03 PM
--- NOTE | 2019-09-23 18:10 | Emergency Department Note ---
History of Present Illnes History of Present Illness Chief Complaint: General Medicine Complaints History of Present Illness This is a 64 year old male Chief Complaint Comment CALLED OUT BY [facility] FOR UNWITNESSED FALL. C/O RIGHT HIP PAIN. He was able to walk initially but with pain. 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: SEE EMS REPORT Respiratory Physician Required: No Onset (how long ago): hour(s) (1) Location: R hip Quality: dull Radiation: Reports non-radiation Severity: mild Onset quality: sudden Duration (how long): hour(s) (1) Timing of current episode: constant Progression: unchanged Chronicity: new Context: Denies recent illness, Denies non-compliance w/ medications Relieving factors: rest Exacerbating factors: none, movement Associated symptoms: Reports denies other symptoms Treatments prior to arrival: none Past Medical/Family History Physician Review I have reviewed the patient's past medical and family history. Any updates have been documented here. Past Medical History Recent Fever: No Clinical Suspicion of Infectio: No New/Unexplained Change in Ment: No Past Medical History: Hypertension, Seizure Disorder, Depression, Other Mental Illness Other Medical History: ETOH ABUSE DDD Past Surgical History: Knee Replacement, Orthopedic Implants Other Surgery: KNEE Social History Smoking Cessation: Current every day smoker Counseling Performed: Yes Any Illegal Drug Use: No Physically hurt or threatened: No Other Last Tetanus: unk Any Pre-Existing Lines (PICC,: No Review of Systems Review of Systems Constitutional: Reports no symptoms EENTM: Reports no symptoms Cardiovascular: Reports no symptoms Respiratory: Reports no symptoms Gastrointestinal: Reports no symptoms Genitourinary: Reports no symptoms Musculoskeletal: Reports as per HPI, Reports joint pain (R hip) Integumentary: Reports no symptoms Neurological: Reports no symptoms Psychological: Reports no symptoms Endocrine: Reports no symptoms Hematological/Lymphatic: Reports no symptoms Physical Exam Related Data Allergies: Coded Allergies: No Known Allergies (Unverified , 06/06/19) Triage Vital Signs Vital Signs Date Time Temp Pulse Resp B/P (MAP) Pulse Ox O2 Delivery O2 Flow Rate FiO2 09/23/19 16:20 77 13 100 Room Air 09/23/19 17:11 98.9 Vital signs reviewed: Yes Physical Exam CONSTITUTIONAL Constitutional: Present well-developed, Present well-nourished HENT HENT: Present normocephalic, Present atraumatic, Present oropharynx clear/ moist, Present nose normal HENT L/R: Present left ext ear normal, Present right ext ear normal EYES Eyes: Reports PERRL, Reports conjunctivae normal NECK Neck: Present ROM normal PULMONARY Pulmonary: Present effort normal, Present breath sounds normal CARDIOVASCULAR Cardiovascular: Present regular rhythm, Present heart sounds normal, Present capillary refill normal, Present normal rate GASTROINTESTINAL Abdominal: Present soft, Present nontender, Present bowel sounds normal GENITOURINARY Genitourinary: Present exam deferred SKIN Skin: Present warm, Present dry MUSCULOSKELETAL Musculoskeletal: Present ROM normal, Present other (Mild pain to palpation of R hip. Mild pain with ROM but ROM full. Pulses in LE 2+/equal. Sensatoin intact) NEUROLOGICAL Neurological: Present alert, Present oriented x 3, Present no gross motor or sensory deficits PSYCHOLOGICAL Psychological: Present mood/affect normal, Present judgement normal Results Laboratory Result Diagram: 09/23/19 1627 09/23/19 1627 Laboratory Laboratory Tests Test 09/23/19 16:27 White Blood Count 6.27 x10e3/uL (4.8-10.8) Red Blood Count 3.19 x10e6/uL (4.3-5.7) Hemoglobin 10.8 g/dL (14.0-18.0) Hematocrit 32.6 % (38.2-49.6) Mean Corpuscular Volume 102.2 fL (81-99) Mean Corpuscular Hemoglobin 33.9 pg (28-32) Mean Corpuscular Hemoglobin Concent 33.1 g/dL (31-35) Red Cell Distribution Width 14.6 % (11.7-14.4) Platelet Count 252 x10e3/uL (140-360) Neutrophils (%) (Auto) 37.9 % (38.7-80.0) Lymphocytes (%) (Auto) 43.5 % (18.0-39.1) Monocytes (%) (Auto) 14.0 % (4.4-11.3) Eosinophils (%) (Auto) 3.7 % (0.0-6.0) Basophils (%) (Auto) 0.3 % (0.0-1.0) Neutrophils # (Auto) 2.4 (2.1-6.9) Lymphocytes # (Auto) 2.7 (1.0-3.2) Monocytes # (Auto) 0.9 (0.2-0.8) Eosinophils # (Auto) 0.2 (0.0-0.4) Basophils # (Auto) 0.0 (0.0-0.1) Absolute Immature Granulocyte (auto 0.04 x10e3/uL (0-0.1) Prothrombin Time 12.6 seconds (11.9-14.5) Prothromb Time International Ratio 0.90 Activated Partial Thromboplast Time 28.3 seconds (23.8-35.5) Sodium Level 143 mmol/L (136-145) Potassium Level 4.1 mmol/L (3.5-5.1) Chloride Level 108 mmol/L (98-107) Carbon Dioxide Level 24 mmol/L (22-29) Anion Gap 15.1 mmol/L (8-16) Blood Urea Nitrogen 19 mg/dL (7-26) Creatinine 0.94 mg/dL (0.72-1.25) Estimat Glomerular Filtration Rate > 60 ML/MIN (60-) BUN/Creatinine Ratio 20 (6-25) Glucose Level 84 mg/dL (74-118) Calcium Level 9.3 mg/dL (8.4-10.2) Total Bilirubin 0.2 mg/dL (0.2-1.2) Aspartate Amino Transf (AST/SGOT) 82 IU/L (5-34) Alanine Aminotransferase (ALT/SGPT) 55 IU/L (0-55) Alkaline Phosphatase 44 IU/L (40-150) Creatine Kinase 127 IU/L (30-200) Creatine Kinase MB 2.00 ng/mL (0-5.0) Troponin I 0.008 ng/mL (0-0.300) Total Protein 6.8 g/dL (6.5-8.1) Albumin 4.0 g/dL (3.5-5.0) Globulin 2.8 g/dL (2.3-3.5) Albumin/Globulin Ratio 1.4 (0.8-2.0) Acetaminophen Level < 3.0 ug/mL (10-30) Ethyl Alcohol Level 350.5 mg/dL (0.0-10.0) Lab results reviewed: Yes Imaging Imaging results reviewed: Yes Assessment & Plan Medical Decision Making MDM 64-year-old male with history of alcohol abuse who presents to the emergency department for a fall with right-sided hip pain. Examination is largely un remarkable and he retains full range of motion of the right hip with some mild pain. Bilateral lower extremities are neurovascularly intact. CT head, C-spine, x-rays of the hip, pelvis, chest are all largely unremarkable. Laboratory workup does show elevated ethanol the patient is alert and oriented and does not appear clinically intoxicated. I discussed results the patient and will discharge home with family friend. Patient states ground plan he is appropriate for discharge. Reassessment Reassessment time: 18:10 Reassessment Well appearing, NAD Assessment & Plan Final Impression: (1) Hip pain Depart Disposition: HOME, SELF-CARE Last Vital Signs Date Time Temp Pulse Resp B/P (MAP) Pulse Ox O2 Delivery O2 Flow Rate FiO2 09/23/19 17:11 98.9 76 18 104/76 97 Room Air Medications in the ED Pantoprazole Sodium 40 mg ONCE STAT IV ; Start 09/23/19 at 16:55; Stop 09/23/19 at 17:01; Status DC Sodium Chloride 1,000 ml @ 0 mls/hr Q0M STAT IV ; Start 09/23/19 at 16:55; Stop 09/23/19 at 16:59; Status DC EVETTE APONTE MD Sep 23, 2019 18:10
--- NOTE | 2019-09-23 18:13 | Diagnostic Imaging Report ---
History: Trauma, fall Comparison studies: Cervical spine CTs and 09/18/2017. Technique: Axial images were obtained through the cervical region. Coronal and sagittal images reconstructed from the axial data. Dose modulation, iterative reconstruction, and/or weight based adjustment of the mA/kV was utilized to reduce the radiation dose to as low as reasonably achievable. Intravenous contrast: None None Findings: Atlantoaxial articulation: Intact. Alignment: Reversal of the usual cervical lordotic curvature at C5-C6 with unchanged anterolisthesis of C4 on C5 by approximately 3 mm and minimal retrolisthesis of C3 on C4. Cervicomedullary junction: No abnormalities. The foramen magnum is patent. Soft tissues: No gross acute abnormalities. Vertebrae: No fractures, infection or neoplasm. Degenerative changes: Disc degeneration, mild at C2-C3, moderate at C4-C5, mild at C5-C6 and moderate C6-C7 and at C7-T1. Least mild degenerative canal stenosis from C3 to C7 due to disc osteophyte complexes, minimal retrolisthesis of C3 on C4 and anterolisthesis with uncovered disc/disc bulge at C4-C5. Advanced multilevel facet arthrosis. Multilevel uncovertebral and facet arthrosis result in multilevel foraminal stenosis which is moderate on the right and mild left at C3-C4 and at C4-C5, moderate left and mild right at C5-C6 mild bilaterally at C6-C7. Incidental findings: Scattered calcified atherosclerosis. Severe cerebellar atrophy. IMPRESSION: 1. No acute cervical spine fracture or acute subluxation. 2. Multilevel degenerative changes as described. 3. No changes from the prior cervical spine CTs. 4. Ligament, spinal cord and or vascular abnormalities cannot be excluded on the basis of this examination Signed by: Dr. Justino García M.D. on 09/23/2019 6:10 PM
--- NOTE | 2019-09-23 18:35 | Diagnostic Imaging Report ---
EXAMINATION: CHEST SINGLE (PORTABLE) INDICATION: Chest pain after recent fall. COMPARISON: None FINDINGS: TUBES and LINES: None. LUNGS: Normal lung volumes. Lungs are clear. No consolidations. PLEURA: No pleural effusion or pneumothorax. HEART AND MEDIASTINUM: The cardiomediastinal silhouette is unremarkable. BONES AND SOFT TISSUES: No acute osseous lesion. Soft tissues are unremarkable. UPPER ABDOMEN: No free air under the diaphragm. IMPRESSION: No acute thoracic radiographic abnormality. Signed by: Troy Lopez MD on 09/23/2019 6:32 PM
--- NOTE | 2019-09-23 18:39 | Diagnostic Imaging Report ---
X-ray site and # of views HISTORY: Pain. COMPARISON: None available. FINDINGS: Bones/joints: No acute fracture or dislocation. 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 There are also moderate degenerative changes of the bilateral sacroiliac joints which are symmetric. Degenerative changes of the pubic symphysis and lower lumbar spine are also seen. Soft tissues: There is extensive atherosclerotic calcification of the lower extremity vessels. IMPRESSION: 1. No acute fracture or dislocation. 2. Degenerative changes of the bilateral hips, sacroiliac joints, pubic symphysis and the lower lumbar spine. 3. Severe atherosclerotic disease of the lower extremity vasculature. Signed by: Troy Lopez MD on 09/23/2019 6:35 PM
--- NOTE | 2019-09-23 19:10 | NUR ---
report received from kd anand
[2019-09-23 19:43] LABS: AMPHETAMINES SCREEN,URINE NEGATIVE (NEGATIVE); BENZODIAZEPINES SCREEN,URINE NEGATIVE (NEGATIVE); CLARITY,URINE CLEAR (CLEAR); COLOR,URINE YELLOW (YELLOW); PHENCYCLIDINE SCREEN,URINE NEGATIVE (NEGATIVE)
[2019-09-23 19:44] LABS: BILIRUBIN,URINE NEGATIVE (NEGATIVE); KETONES,URINE NEGATIVE (NEGATIVE); LEUKOCYTE ESTERASE ,URINE NEGATIVE (NEGATIVE); NITRITE,URINE NEGATIVE (NEGATIVE); PROTEIN,URINE DIPSTICK NEGATIVE (NEGATIVE); URINE UROBILINOGEN 0.2 mg/dL (0.2 - 1)
[2019-09-23 19:50] LABS: BACTERIA,URINE FEW /HPF; EPITHELIAL CELLS,URINE FEW /LPF; HYALINE CASTS >15 (0-1); MUCUS,URINE FEW (RARE); RBC,URINE 0-5 /HPF (0-5); WBC,URINE (MAN) 0-5 /HPF (0-5)
--- NOTE | 2019-09-23 23:41 | NUR ---
patient walked from room to door without any problem, patient answering all questions adequately, not showing signs of alcohol intoxication. per md-patient is ok to discharge home.
[2019-09-24 00:20] VITALS: BP 149/100
== END 2019-09-24 00:25 | disposition home or self-care (01) ==
LOC: ER 16:36
DX: M25.551 Pain in right hip (principal); S00.83XA Contusion of other part of head, initial encounter; W19.XXXA Unspecified fall, initial encounter; Y92.008 Other place in unspecified non-institutional (private) residence as the place of occurrence of the external cause; I10 Essential (primary) hypertension; G40.909 Epilepsy, unspecified, not intractable, without status epilepticus; F32.9 Major depressive disorder, single episode, unspecified; F17.210 Nicotine dependence, cigarettes, uncomplicated
CPT/HCPCS: 36415; 70450; 71045; 72125; 72170; 80053; 80307; 80320; 80329; 81001; 82550; 82553; 84484; 85025; 85610; 85730; 87086; 93005; 99284; C9113; J7030

== ENCOUNTER 2020-07-17 19:42 | Emergency (ER) | payer OTHER ==
[~2020-07-17] VITALS: Ht 170.2 cm; Wt 68.0 kg
[2020-07-17] MEDS ORDERED: SODIUM CHLORIDE 0.9% 1000ML 1,000 ML IV STA (19:45)
[2020-07-17 20:04] LABS: BASOPHILS % 0.2 % (0.0-1.0); EOSINOPHILS % 0.7 % (0.0-6.0); HEMOGLOBIN 10.3 g/dL (14.0-18.0); LYMPHOCYTES # (AUTO) 1.2 (1.0-3.2); LYMPHOCYTES % 22.3 % (18.0-39.1); MEAN CORPUSCULAR HEMOGLOBIN 33.7 pg (28-32); MEAN CORPUSCULAR HGB CONC 33.2 g/dL (31-35); MEAN CORPUSCULAR VOLUME 101.3 fL (81-99); MONOCYTES # (AUTO) 0.9 (0.2-0.8); MONOCYTES % 16.3 % (4.4-11.3); NEUTROPHILS # (AUTO) 3.3 (2.1-6.9); PLATELET COUNT 90 x10e3/uL (140-360); RED BLOOD COUNT 3.06 x10e6/uL (4.3-5.7); RED CELL DISTRIBUTION WIDTH 13.4 % (11.7-14.4)
[2020-07-17 20:26] LABS: ALBUMIN 4.1 g/dL (3.5-5.0); ALBUMIN/GLOBULIN RATIO 1.6 (0.8-2.0); CALCIUM 7.7 mg/dL (8.4-10.2); CREATININE, SERUM 1.5 mg/dL (0.72-1.25)
[2020-07-17 20:31] LABS: CREATINE KINASE MB 3.6 ng/mL (0-5.0)
[2020-07-17] MEDS: LEVETIRACETAM 500MG/5ML VIAL 500 MG in SODIUM CHLORIDE 0.9% 100 ML 100 ML IV SCH ×2 (21:36→21:37)
[2020-07-17] MEDS ORDERED: ACETAMINOPHEN 325 MG TAB PO ONE (21:45)
[2020-07-17] MEDS ORDERED: LEVETIRACETAM 500 MG/5 ML VIAL IV ONE (22:17)
[2020-07-17] MEDS ORDERED: SODIUM CHLORIDE 0.9% 100 ML ONE (22:19)
[2020-07-17] MEDS ORDERED: KEPPRA500 MG PO (22:22)
== END 2020-07-17 22:45 | disposition home or self-care (01) ==
LOC: ER 21:09
DX: G40.909 Epilepsy, unspecified, not intractable, without status epilepticus (principal); I10 Essential (primary) hypertension; F32.9 Major depressive disorder, single episode, unspecified; R94.31 Abnormal electrocardiogram [ECG] [EKG]
CPT/HCPCS: 36415; 70450; 71045; 80053; 80320; 82550; 82553; 83880; 84484; 85025; 93005; 99284; J1953; J7030; J7050